=== PATIENT | male | born 1945 | race Caucasian/White ===

== ENCOUNTER 2018-02-02 00:38 | Inpatient (IN) | payer MEDICARE, MEDICAID, SELFPAY ==
[2018-02-02] VITALS (20 sets, daily range): BP systolic 95–136; BP diastolic 50–66; PULSE 91–116; RESP 18–32; TEMP 37.6–41.1; O2SAT 93–98; BMI 31.6
--- NOTE | 2018-02-02 00:52 | RAD_ITS ---
STUDY: X-RAY CHEST REASON FOR EXAM: Male, 72 years old. FEVER ALT MENTAL STATUS PRIOR BRAIN INJURY PATIENT UNABLE/WOULDN'T FOLLOW INSTRUCTIONS BEST IMAGES POSSIBLE TECHNIQUE: Single AP portable view of the chest. COMPARISON: None. 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 Subsegmental atelectases are noted in the right and left lung bases. There is no demonstrated pleural abnormality. Normal size heart. Normal mediastinum and huber. Normal visualized pulmonary arteries. There is atherosclerotic calcification of the aortic arch with tortuosity. Normal visualized thoracic spine. There is degenerative osteoarthritis of the bilateral shoulders. There is no demonstrated abnormality of the visualized soft tissue structures of the upper abdomen. RAD/Chest 1 View (Portable) IMPRESSION: Degenerative changes, as described above. No demonstrated acute cardiopulmonary process. Electronically Signed: Jose Eduardo Grullon MD at 2:40 EDT Tel , Service support ,
--- NOTE | 2018-02-02 00:52 | EKG12_ITS ---
Test Reason : Blood Pressure : / mmHG Vent. Rate : 114 BPM Atrial Rate : 114 BPM P-R Int : 158 ms QRS Dur : 098 ms QT Int : 298 ms P-R-T Axes : 030 030 057 degrees QTc Int : 410 ms Sinus tachycardia Nonspecific T wave abnormality Abnormal ECG Confirmed by ANGELITO ELKINS, LALO ([id number]), editor magazine POONAM SHEPHERD ([id number]) on 02/05/2018 2:20:43 PM Referred By: JANICE Confirmed By:LALO EATON MD
--- NOTE | 2018-02-02 00:54 | CT_ITS ---
STUDY: CT BRAIN WITHOUT CONTRAST REASON FOR EXAM: Male, 72 years old. ALTERED MENTAL STATUS,FEVER,HYPOTENSION HX:EPILEPSY,SCRAP METAL BURNER SHUNT,DEPRESSION,FX SKULL A CHILD RADIATION DOSAGE (If Supplied By Facility): CTDIvol = ( 44.99 ) mGy, DLP = ( 863.60 ) mGycm TECHNIQUE: Transaxial CT imaging of the brain was performed without administration of intravenous contrast material. Individualized dose optimization techniques were used for this CT. COMPARISON: None. FINDINGS: Normal soft tissue structures. Normal calvarium. A right ventricular shunt is seen in good position. There is disproportionate enlargement of the lateral and third ventricles, as compared to the extra-axial spaces. The findings suggest normal pressure hydrocephalus (NPH). There are areas of decreased attenuation within the white matter tracts of the supratentorial brain, consistent with microvascular disease changes. Normal basal ganglia and thalami. Normal brainstem. Normal cerebellum. There is no intracranial hemorrhage. There are no findings of an acute ischemic infarction. Normal visualized paranasal sinuses. CT/Brain/Head without Contrast IMPRESSION: Chronic involutional changes of the brain. There is disproportionate enlargement of the lateral and third ventricles, as compared to the extra-axial spaces. The findings suggest normal pressure hydrocephalus (NPH). Electronically Signed: Jose Eduardo Grullon MD at 2:45 EDT Tel , Service support ,
[2018-02-02 00:55] LABS: Bedside Glucose 122 mg/dL (70-110)
--- NOTE | 2018-02-02 00:59 | ED.RN ---
[facility] called patient last seen normal yesturday morning patient angry today per nurse when she gave his night time medications he was acting normal but slow to respond pills at 1999. patient has no right sided facial droop per nurse.
[2018-02-02 01:06] LABS: Absolute Lymphocyte Count 0.54 X10^3/ul (0.83-4.51); Absolute Neutrophil Count 7.9 X10^3/uL (2.0-7.7); Hematocrit 42.6 % (40-54); Hemoglobin 14.7 g/dl (13.0-16.5); Lymphocyte # 0.54 X10^3/ul (4.0); Lymphocyte % 5.5 % (19-41); Mean Corp Hgb Conc 34.5 g/gl (32-36); Mean Corpuscular Hgb 32.5 pg (27.0-32.0); Mean Platelet Vol. 9.7 fl (6.2-12.0); Monocyte# 1.46 X10^3/uL; Monocyte% 14.8 % (0-10); Neutrophil # 7.87 X10^3/uL (2.7-7.7); Neutrophil % 79.5 % (47-70); Platelet Count 162 K/mm3 (150-450); RBC Distribution Width CV 14.2 % (11.6-14.6); RBC Distribution Width SD 48.4 fl (35.1-43.9); Red Blood Count 4.53 M/mm3 (4.6-6.2); White Blood Count 9.9 K/mm3 (4.4-11.0)
[2018-02-02 01:07] LABS: Differential Indicated SCAN CRITERIA MET; POSITIVE COUNT NO; POSITIVE DIFFERENTIAL YES; POSITIVE MORPHOLOGY NO
[2018-02-02] MEDS: Acetaminophen 650 MG Suppository RECTAL ×3 (01:10→16:58)
[2018-02-02] MEDS: 0.9% Normal Saline 1,000 ML 150 ML IV ×2 (01:10→05:20)
[2018-02-02 01:15] LABS: International Normalized Ratio 1.1; Partial Thromboplast Time 36.5 Seconds (24.1-36.2); Prothrombin Time (Protime)PT. 14.1 SECONDS (11.7-14.9)
[2018-02-02 01:17] LABS: ALB/GLOB Ratio 0.8 RATIO (0.9-2.4); AST(SGOT) 35 U/L (15-37); Alanine Aminotransfer ALT/SGPT 25 U/L (16-61); Albumin, Serum 3.2 g/dL (3.2-5.0); Alkaline Phosphatase 82 U/L (45-117); Anion Gap 6 (5-15); BUN 13 mg/dL (7-18); BUN/Creat Ratio 10.2 RATIO (10-20); Calcium,Total 8.3 mg/dL (8.5-10.1); Chloride 104 mmol/L (98-107); Creatinine, Serum 1.28 mg/dL (0.70-1.30); EST Glomerular Filtration Rate 59 mL/min (>60); Est Glom Filt Rate - Afr Amer 71 mL/min (>60); Estimated Creatinine Clearance 55.45 ml/min; Globulin 4.1 g/dL (2.2-4.2); Glucose 112 mg/dL (74-106); Potassium 3.6 mmol/L (3.5-5.1); Protein, Total 7.3 g/dL (6.4-8.2); Sodium Level 137 mmol/L (136-145)
[2018-02-02 01:18] LABS: Phenytoin (Dilantin) Level 7.8 mL (10.0-20.0)
[2018-02-02 01:19] LABS: Lactic Acid 1.9 mmol/L (0.4-2.0)
[2018-02-02 01:30] LABS: Color, Urine Yellow (Yellow); Glucose, Dipstick Normal (Normal); Ketone-Dipstick 5 mg/dl (Negative); Leukocyte Esterase-Dipstick 500 /ul (Negative); Mucous, Urine 0 SEEN /hpf (<or=2+); Nitrite-Dipstick Positive (Negative); Occult Blood-Urine 150 /ul (Negative); Protein-Dipstick 100 mg/dl (Negative); Red Blood Cells-Urine 0 SEEN /hpf (0-5); Urine Clarity Cloudy (Clear); Urine Urobilinogen 4 mg/dl (Normal)
[2018-02-02 01:35] LABS: Urine Bilirubin Dipstick 1 mg/dL (Negative)
[2018-02-02 01:39] LABS: Bacteria 2+ /hpf (None Seen); Squamous Epithelial Cells - UA 0-5 SEEN /hpf (0-5); White Blood Cells 50-100 SEEN /hpf (0-5)
[2018-02-02] MEDS: 0.9% Normal Saline 1,000 ML 1000 ML IV (03:17)
--- NOTE | 2018-02-02 03:18 | ED.VISSUMM ---
- ER Visit Summary Date of Service: 02/02/18 Chief Complaint: [Mental status change and fever] History of Present Illness: The patient is a 72 M [presents to the emergency department with a mental status change today. Per fdc staff patient started acting somewhat confused and agitated yesterday morning. Patient tonight found relatively unresponsive and apparently normally he is alert and oriented ?3. Patient sent to the ER for further workup and evaluation. Patient unable to give any history.] Physical Examination: Vital signs-blood pressure 97/57, temperature 102, heart rate 116, respirations 24, pulse ox 95% on room air [HEENT-PERRLA, EOMI. Cranial nerves II through XII grossly intact. TMs clear. Mucous membranes moist. No adenopathy. Cardiovascular-tachycardic without murmurs Lungs-clear to auscultation, chest wall stable without crepitus or subcu emphysema Abdomen-normoactive bowel sounds, soft, nontender, no rebound or rigidity, no peritoneal signs. Neuro exam-patient has eye opening to voice and painful stimulus. Patient does not answer any questions. Patient does withdraw all extremities to painful stimulus. Babinski is downgoing bilaterally. Patient had a subtle left-sided facial droop. Extremities-intact ?4, normal range of motion, normal pulses, atraumatic] Test Results: [EKG obtained showed a sinus rhythm with a ventricular rate of 114 bpm with some nonspecific ST changes. When compared with prior EKG from August 2017 no new changes noted. CBC with differential showed a white count of 9.9, hemoglobin 14.7, hematocrit 43, platelets 162. Chemistry is unremarkable. INR was 1.1. Lactate was 1.9. Dilantin level was 7.8. Urinalysis showed 500 leukocyte esterase positive nitrites, 50-100 WBCs, and +2 bacteria. Chest x-ray showed nothing acute. CT scan of the brain without contrast showed changes consistent with normal pressure hydrocephalus.] Emergency Department Course and Treatment: [Blood cultures as well as urine cultures ordered and pending. Patient was started on meropenem 500 mill grams IV. Case was discussed with hospitalist will evaluate patient for admission. Patient received a liter normal same fluid bolus.] Treatment Plan: [Admit] Disposition: [Admit] Impression: [Sepsis Cystitis] This note was generated with [employer] software. It may contain incorrect words, spelling, and punctuation that were not noted in review of the chart prior to signing ED Disposition - Plan for ED Patient: Chief Complaint: Alt LOC Referrals: Glenn Ramos MD [Primary Care Provider] -
--- NOTE | 2018-02-02 03:22 | ED.DCSUM_ITS ---
- ER Visit Summary Date of Service: 02/02/18 Chief Complaint: [Mental status change and fever] History of Present Illness: The patient is a 72 M [presents to the emergency department with a mental status change today. Per detention staff patient started acting somewhat confused and agitated yesterday morning. Patient tonight found relatively unresponsive and apparently normally he is alert and oriented ?3. Patient sent to the ER for further workup and evaluation. Patient unable to give any history.] Physical Examination: Vital signs-blood pressure 97/57, temperature 102, heart rate 116, respirations 24, pulse ox 95% on room air [HEENT-PERRLA, EOMI. Cranial nerves II through XII grossly intact. TMs clear. Mucous membranes moist. No adenopathy. Cardiovascular-tachycardic without murmurs Lungs-clear to auscultation, chest wall stable without crepitus or subcu emphysema Abdomen-normoactive bowel sounds, soft, nontender, no rebound or rigidity, no peritoneal signs. Neuro exam-patient has eye opening to voice and painful stimulus. Patient does not answer any questions. Patient does withdraw all extremities to painful stimulus. Babinski is downgoing bilaterally. Patient had a subtle left-sided facial droop. Extremities-intact ?4, normal range of motion, normal pulses, atraumatic] Test Results: [EKG obtained showed a sinus rhythm with a ventricular rate of 114 bpm with some nonspecific ST changes. When compared with prior EKG from August 2017 no new changes noted. CBC with differential showed a white count of 9.9, hemoglobin 14.7, hematocrit 43, platelets 162. Chemistry is unremarkable. INR was 1.1. Lactate was 1.9. Dilantin level was 7.8. Urinalysis showed 500 leukocyte esterase positive nitrites, 50-100 WBCs, and +2 bacteria. Chest x-ray showed nothing acute. CT scan of the brain without contrast showed changes consistent with normal pressure hydrocephalus.] Emergency Department Course and Treatment: [Blood cultures as well as urine cultures ordered and pending. Patient was started on meropenem 500 mill grams IV. Case was discussed with hospitalist will evaluate patient for admission. Patient received a liter normal same fluid bolus.] Treatment Plan: [Admit] Disposition: [Admit] Impression: [Sepsis Cystitis] This note was generated with [employer] software. It may contain incorrect words, spelling, and punctuation that were not noted in review of the chart prior to signing ED Disposition - Plan for ED Patient: Chief Complaint: Alt LOC Referrals: Glenn Ramos MD [Primary Care Provider] -
--- NOTE | 2018-02-02 04:25 | PCM.HP.STD ---
Problem List (1) Lethargy Status: Acute History of Present Illness Date of Admission: 02/02/18 Chief Complaint: Lethargy The patient is a 72 year old M was seen in the emergency room at [facility] after being sent in from a local extended care facility at which she chronically resides due to increased lethargy today. Patient has multiple medical problems including MRDD, seizure disorder, and BPH with a chronic indwelling suprapubic catheter. Review of systems was unobtainable from the patient due to encephalopathy and MRDD. Evaluation in the emergency room included labs which showed normal white blood cell count, UA was positive for 50-100 WBCs and +2 bacteria, Dilantin level was 7.8. Patient's temperature was 102, he had an increased heart rate and respiratory rate. Chest x-ray was performed and showed no acute infiltrates. Patient will be admitted for acute sepsis secondary to acute cystitis and acute metabolic encephalopathy. Past Medical History Past Medical History (Chronic Problems): Chronic Problems Epilepsy (Chronic) Chronic indwelling Champagne catheter (Chronic) Mental retardation (Chronic) Peripheral vascular disease (Chronic) Major depression (Chronic) Convulsion (Chronic) Allergies No Known Allergies Allergy (Verified 03/17/17 17:06) Home Medications: Ambulatory Orders Medication Instructions Recorded Aspirin [Aspirin, Baby] 81 mg PO DAILY@0800 03/17/17 Carbamazepine 400 mg PO QHS 03/17/17 Multivitamin [Daily Multiple 1 each PO DAILY 03/17/17 Vitamin] Sennosides/Docusate Sodium [Senna 1 each PO QHS 03/17/17 Plus Tablet] Sertraline HCl [Zoloft] 50 mg PO DAILY 03/17/17 Tamsulosin HCl [Flomax] 0.4 mg PO DAILY@1730 capsule 03/22/17 Polyethylene Glycol 3350 [Miralax] 17 gm PO DAILY 04/09/17 Phenytoin Na [Dilantin] 300 mg PO QHS #90 cap 04/11/17 Surgical History: noncontributory Psychiatric History: Depression Lives: Senior [facility] Smoking Status: Unknown if ever smoked Tobacco Use: Non-smoker Alcohol: None Drugs: None - *Family History Maternal History Items: No pertinent history, - - Unable to obtain because of patient's mental status Paternal History Items: No pertinent history Review of Systems Comment: Review of systems unobtainable due to mental status of the patient including MRDD and acute encephalopathy VTE Information - Inpt Only VTE Present on Admission: No VTE Mechan Device Prophylaxis: None VTE Pharm Prophylaxis ordered?: Yes Patient Problems: Active and Suspected Problems Lethargy (Acute) - Physical Exam General: No apparent distress, Well developed, Lethargic, - - Patient is nonverbal but responds to pain HEENT: Atraumatic, PERRLA, EOMI Oral: Moist Mucosa Neck: Supple, No JVD, Negative Carotid Bruits, No Nuchal Rigidity, Trachea Midline, Thyroid Normal Size and Texture Lungs: Clear to auscultation, Normal air movement, No rhonchi, No wheeze, No rales Cardiovascular: Regular rate, Regular Rhythm, Normal S1, Normal S2, No murmurs, No Ectopic Activity, PMI Normal, No rub noted, No Gallop Abdomen: Bowel Sounds Present, Soft, Non Tender, Non-Distended, No Hepato-splenomegaly, No hernias noted, - - Suprapubic catheter in place Extremities: No clubbing, No cyanosis, No edema, Capillary Refill Less than 3 Seconds Skin: No rashes, No breakdown Neurological: Cranial nerves II-XII grossly intact, Neuro grossly intact, Sensory exam intact to light touch and pain Psych/Mental Status: Flat Affect, - - Patient is alert, he responds to painful stimuli and responds by looking when spoken to, he is nonverbal Vital Signs Temp Pulse Resp BP Pulse Ox 99.7 F H 91 18 115/52 L 98 02/02/18 04:14 02/02/18 04:14 02/02/18 04:14 02/02/18 04:14 02/02/18 04:14 Oxygen Delivery Method Room Air Weight: 99.9 kg Body Mass Index (BMI) 31.6 Assessment/Plan Active and Suspected Problems Lethargy (Acute) #1 acute sepsis secondary to acute cystitis-patient will be admitted to [facility] 2, IV meropenem was administered and he will get IV vancomycin-this is based on previous urine and blood cultures showing gram-negative bacteria, enterococcus, and MRSA. It is difficult to ascertain whether the patient indeed has a urinary tract infection due to his chronic indwelling Champagne, however, patient is running a temperature and I believe he does have an acute cystitis. #2 acute cystitis-probably secondary to multiple organisms, patient will be treated with meropenem and vancomycin, antibiotic coverage may be narrowed once blood and urine culture results are revealed #3 acute metabolic encephalopathy secondary to acute sepsis #4 chronic seizure disorder #5 MRDD #6 BPH with chronic suprapubic catheter Code Visit Inpatient E&M: 01041 Init Hosp L3
[2018-02-02] MEDS: Phenytoin Na 100 MG/2 ML Vial IV ×3 (05:08→22:40)
[2018-02-02] MEDS: Heparin Injection (Vial) 5,000 UNIT/ML VIAL 5000 UNIT SC ×3 (05:08→22:40)
--- NOTE | 2018-02-02 05:16 | PCM.RX.CS ---
Consult Pharmacy has been consulted to manage selected antiobiotic: Vancomycin Type of Consult: New start Suspected Infection: Sepsis Prior Doses of Antibiotics Received/Current Regimen: Medications Vancomycin HCl (Vancomycin) 1,000 mg in 200 mls @ 200 mls/hr IV Q12H SHERWIN Previous medications Vancomycin HCl 2,000 mg/ (Sodium Chloride) 540 mls @ 260 mls/hr IV X1 ONE Stop: 02/02/18 07:04 Last Admin: 02/02/18 05:07 Dose: 260 mls/hr Labs: Sodium 137 mmol/L (136-145) 02/02/18 00:45 Potassium 3.6 mmol/L (3.5-5.1) 02/02/18 00:45 Chloride 104 mmol/L (98-107) 02/02/18 00:45 Carbon Dioxide 27.0 mmol/L (21.0-32.0) 02/02/18 00:45 Anion Gap 6 (5-15) 02/02/18 00:45 BUN 13 mg/dL (7-18) 02/02/18 00:45 Creatinine 1.28 mg/dL (0.70-1.30) 02/02/18 00:45 Est GFR (MDRD) Af Amer 71 mL/min (>60) 02/02/18 00:45 Est GFR (MDRD) Non-Af 59 mL/min (>60) L 02/02/18 00:45 BUN/Creatinine Ratio 10.2 RATIO (10-20) 02/02/18 00:45 Glucose 112 mg/dL (74-106) H 02/02/18 00:45 Weight used for dosin.9 kg Estimated Creatinine Clearance: 68 Goal Trough: 15-20 mcg/mL Pharmacy Plan for Drug Dosing: Pharmacy Service will continue to monitor and adjust dosing as required. Follow-Up Labs: Trough Vancomycin Labs to be done on [date and time ordered]: 02/03/18 @7611
--- NOTE | 2018-02-02 08:02 | NURSING ---
This nurse is aware that Gaby, [facility] [employer] Seamstress took Vital Signs and temp was 106.0 with the temporal Artery thermometer. This nurse had Gaby take temp via axillary since pt is MRDD and would not keep oral thermometer in his mouth. Temp was 102 axillary. Gaby alongside this nurse gave Tylenol suppository.
[2018-02-02] MEDS: 0.9% Normal Saline 1,000 ML 999 ML IV (08:38)
--- NOTE | 2018-02-02 08:49 | NURSING ---
Addendum entered by Radha William 02/02/18 08:54: Reginaldo Dugan aware of VS and that bolus is going and lactic ordered. Original Note: This nurse applied telemonitor and continous spo2 on pt per sepsis protocol. Reginaldo Del Valle texted to inform him of VS and trigger of sepsis. This nurse going to order lactic acid on pt.
[2018-02-02 09:40] LABS: Lactic Acid 1.3 mmol/L (0.4-2.0)
--- NOTE | 2018-02-02 09:48 | CASEMGMT ---
Addendum entered by Gretel Lara 02/02/18 12:30: Epifanio Jacek called this SW back, confirmed the plan is for pt to return to [facility] when ready. He is pt's step brother in law and POA. He also confirmed his correct number and address, SW updated information in [employer]. Green sheet remains on chart in event pt can return to [facility] on the weekend. COLTON Cano, HYDROLOGIC MODELER Original Note: Addendum entered by Gretel Lara 02/02/18 12:22: JONN called the number listed for Epifanio Read in the information from [facility], message left to call this SW back. The number in the chart seems to be a wrong number, does not go through. COLTON Cano, HYDROLOGIC MODELER Original Note: Addendum entered by Gretel Lara 02/02/18 11:35: SW confirmed with [facility] that pt is from there long term care pharmacist. If pt is here through the weekend they will take pt back skilled. Otherwise, pt can return when ready. Pt's POA and main contact is Epifanio Read, . Physician spoke w/Epifanio, this is pt's brother in law. Green sheet placed on chart in anticipation of weekend discharge back to [facility]. COLTON Cano, HYDROLOGIC MODELER Original Note: SW reviewed chart, pt is from [facility] long term care pharmacist. JONN called Jannette at [facility], message left, initial clinical information faxed. SW will check w/Jannette when she returns call who is the main family contact. COLTON Cano, HYDROLOGIC MODELER
[2018-02-02] MEDS: Acetaminophen 325 MG Tablet 650 MG PO ×2 (11:58→23:00)
--- NOTE | 2018-02-02 14:00 | PCM.PROGNOTE ---
<Reginaldo Dugan - Last Filed: 02/02/18 14:00> Patient Problems: Active and Suspected Problems Lethargy (Acute) Subjective: Pt resting comfortably. He is minimally communicative, mostly mumbling incoherently. He shook his head no when asked if he had pain, and only told me he was thirsty. I called his POA who indicated that despite the DNRCC status he did want him to receive IV fluids and Antibiotics with the intention of clearing the infection in order to get him back to the [facility] facility that he came from. The patient did not show any signs of discomfort with gently palpation of the abdomen around the suprapubic catheter insertion sight. - Physical Exam General: Alert, Cooperative HEENT: Atraumatic, PERRLA, EOMI, Normocephalic Neck: Supple, No JVD, Negative Carotid Bruits Lungs: Clear to auscultation, Normal air movement Cardiovascular: Regular rate, No murmurs Abdomen: Bowel Sounds Present, Soft, Non Tender, - - no irritation around suprapubic sight. Extremities: No edema, Capillary Refill Less than 3 Seconds Skin: No rashes, No breakdown Musculoskeletal: No Tenderness to Palpation of Joints or Extremities Neurological: Cranial nerves II-XII grossly intact Psych/Mental Status: Normal Affect, Appropriate Vital Signs Temp Pulse Resp BP Pulse Ox 102.8 F H 98 20 H 122/66 H 96 02/02/18 11:47 02/02/18 12:19 02/02/18 11:47 02/02/18 11:47 02/02/18 11:47 Oxygen Delivery Method Room Air Weight: 99.9 kg Body Mass Index (BMI) 31.6 Intake and Output for Last 24 Hours 01/31/18 02/01/18 02/02/18 23:59 23:59 23:59 Intake Total 5143 / 5143 Output Total 400 / 400 Balance 4743 / 4743 Laboratory Tests Past 24 Hrs 02/02/18 09:06 Lactic Acid 1.3 Medical Necessity - Tobacco Use Smoking Status: Unknown if ever smoked Tobacco Use: Non-smoker Assessment/Plan Active and Suspected Problems Lethargy (Acute) 1. Acute sepsis 2/2 recurrent suprapubic catheter associated UTI - patient has had multiple infections with staph, proteus, providencia, enterococcus, morganella, aerococcus. Will continue Vanc and Jordin until cultures come back. Tmax 106 down to 102. No leukocytosis. CXR neg. + UA. BP improved with fluid administration. LA negative. Tachycardic and tachypenic - improving. -follow blood and urine cultures. 2. 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 Pt is currently cooperative and comfortable. 3. Seizure disorder - continue home meds - tegretol and phenytoin. 4. BPH with chronic suprapubic catheter - also on flomax. DVT ppx: heparin DC planning: Return to ECF when stable This patient was seen by Reginaldo Dugan PA-C under the supervision of Doctor Segundo. <Mary Grace Raymond E - Last Filed: 02/02/18 14:49> - Physical Exam Vital Signs Temp Pulse Resp BP Pulse Ox 99.9 F H 98 20 H 122/66 H 96 02/02/18 14:35 02/02/18 12:19 02/02/18 11:47 02/02/18 11:47 02/02/18 11:47 Oxygen Delivery Method Room Air Weight: 220 lb 3.869 oz Body Mass Index (BMI) 31.6 Intake and Output for Last 24 Hours 01/31/18 02/01/18 02/02/18 23:59 23:59 23:59 Intake Total 5143 / 5143 Output Total 400 / 400 Balance 4743 / 4743 Laboratory Tests Past 24 Hrs 02/02/18 09:06 Lactic Acid 1.3 Assessment/Plan Hospitalist note: I am seeing this patient in conjunction with Reginaldo Dugan. I independently seen and examined the patient. Progress note above, laboratory data and imaging studies reviewed. Patient seen and examined. Patient has mental retardation and not able to provide consistent history. He is alert and awake. He has been mumbling incoherently, difficult to understand. His been having spikes of fever, borderline tachycardia and blood pressure has been borderline to stable. Pulse ox is maintained on room air. - Physical Exam General: Alert, awake, Cooperative, No apparent distress. HEENT: Atraumatic, PERRLA, EOMI. Neck: Supple, No JVD, Negative Carotid Bruits, Trachea Midline, Thyroid Normal. Lungs: Diminished breath sounds bilateral, otherwise clear, No rhonchi, No wheeze, No rales. Cardiovascular: Regular rate, Regular Rhythm, Normal S1, Normal S2, tachycardic, PMI Normal. Abdomen: Bowel Sounds Present, Soft, Non Tender, Non-Distended, No Hepato-splenomegaly. Extremities: No clubbing, No cyanosis, No edema Skin: No rashes, No breakdown Neurological: Neuro grossly intact Assessment and plan: #1 acute complicated, supra pubic catheter related UTI/sepsis: He is on IV meropenem and vancomycin based on his previous cultures. Back in September,, he had urine culture that was positive for enterococcus, MRSA, Proteus and Morganella. He is still febrile, blood pressure and heart rate are maintained, fairly stable at this point, pulse ox is maintained. Urine and blood cultures are pending. Plan to continue same treatment. #2 bacteremia: 1 bottle of blood culture came back positive for gram-negative rods and gram-positive cocci. Patient is on IV vancomycin and meropenem as above. Plan as above. #3 other chronic medical problems: Continue same medications as above. This note was generated with [employer] software. It may contain incorrect words, spelling, and punctuation that were not noted in checking the note before signing. Code Visit Inpatient E&M: 76218 Subs Hosp L3
--- NOTE | 2018-02-02 14:10 | PN_ITS ---
<Reginaldo Dugan - Last Filed: 02/02/18 14:00> Patient Problems: Active and Suspected Problems Lethargy (Acute) Subjective: Pt resting comfortably. He is minimally communicative, mostly mumbling incoherently. He shook his head no when asked if he had pain, and only told me he was thirsty. I called his POA who indicated that despite the DNRCC status he did want him to receive IV fluids and Antibiotics with the intention of clearing the infection in order to get him back to the [facility] facility that he came from. The patient did not show any signs of discomfort with gently palpation of the abdomen around the suprapubic catheter insertion sight. - Physical Exam General: Alert, Cooperative HEENT: Atraumatic, PERRLA, EOMI, Normocephalic Neck: Supple, No JVD, Negative Carotid Bruits Lungs: Clear to auscultation, Normal air movement Cardiovascular: Regular rate, No murmurs Abdomen: Bowel Sounds Present, Soft, Non Tender, - - no irritation around suprapubic sight. Extremities: No edema, Capillary Refill Less than 3 Seconds Skin: No rashes, No breakdown Musculoskeletal: No Tenderness to Palpation of Joints or Extremities Neurological: Cranial nerves II-XII grossly intact Psych/Mental Status: Normal Affect, Appropriate Vital Signs Temp Pulse Resp BP Pulse Ox 102.8 F H 98 20 H 122/66 H 96 02/02/18 11:47 02/02/18 12:19 02/02/18 11:47 02/02/18 11:47 02/02/18 11:47 Oxygen Delivery Method Room Air Weight: 99.9 kg Body Mass Index (BMI) 31.6 Intake and Output for Last 24 Hours 01/31/18 02/01/18 02/02/18 23:59 23:59 23:59 Intake Total 5143 / 5143 Output Total 400 / 400 Balance 4743 / 4743 Laboratory Tests Past 24 Hrs 02/02/18 09:06 Lactic Acid 1.3 Medical Necessity - Tobacco Use Smoking Status: Unknown if ever smoked Tobacco Use: Non-smoker Assessment/Plan Active and Suspected Problems Lethargy (Acute) 1. Acute sepsis 2/2 recurrent suprapubic catheter associated UTI - patient has had multiple infections with staph, proteus, providencia, enterococcus, morganella, aerococcus. Will continue Vanc and Jordin until cultures come back. Tmax 106 down to 102. No leukocytosis. CXR neg. + UA. BP improved with fluid administration. LA negative. Tachycardic and tachypenic - improving. -follow blood and urine cultures. 2. 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 Pt is currently cooperative and comfortable. 3. Seizure disorder - continue home meds - tegretol and phenytoin. 4. BPH with chronic suprapubic catheter - also on flomax. DVT ppx: heparin DC planning: Return to ECF when stable This patient was seen by Reginaldo Dugan PA-C under the supervision of Doctor Segundo. <Mary Grace Raymond E - Last Filed: 02/02/18 14:49> - Physical Exam Vital Signs Temp Pulse Resp BP Pulse Ox 99.9 F H 98 20 H 122/66 H 96 02/02/18 14:35 02/02/18 12:19 02/02/18 11:47 02/02/18 11:47 02/02/18 11:47 Oxygen Delivery Method Room Air Weight: 220 lb 3.869 oz Body Mass Index (BMI) 31.6 Intake and Output for Last 24 Hours 01/31/18 02/01/18 02/02/18 23:59 23:59 23:59 Intake Total 5143 / 5143 Output Total 400 / 400 Balance 4743 / 4743 Laboratory Tests Past 24 Hrs 02/02/18 09:06 Lactic Acid 1.3 Assessment/Plan Hospitalist note: I am seeing this patient in conjunction with Reginaldo Dugan. I independently seen and examined the patient. Progress note above, laboratory data and imaging studies reviewed. Patient seen and examined. Patient has mental retardation and not able to provide consistent history. He is alert and awake. He has been mumbling incoherently, difficult to understand. His been having spikes of fever, borderline tachycardia and blood pressure has been borderline to stable. Pulse ox is maintained on room air. - Physical Exam General: Alert, awake, Cooperative, No apparent distress. HEENT: Atraumatic, PERRLA, EOMI. Neck: Supple, No JVD, Negative Carotid Bruits, Trachea Midline, Thyroid Normal. Lungs: Diminished breath sounds bilateral, otherwise clear, No rhonchi, No wheeze, No rales. Cardiovascular: Regular rate, Regular Rhythm, Normal S1, Normal S2, tachycardic , PMI Normal. Abdomen: Bowel Sounds Present, Soft, Non Tender, Non-Distended, No Hepato- splenomegaly. Extremities: No clubbing, No cyanosis, No edema Skin: No rashes, No breakdown Neurological: Neuro grossly intact Assessment and plan: #1 acute complicated, supra pubic catheter related UTI/sepsis: He is on IV meropenem and vancomycin based on his previous cultures. Back in September, , he had urine culture that was positive for enterococcus, MRSA, Proteus and Morganella. He is still febrile, blood pressure and heart rate are maintained, fairly stable at this point, pulse ox is maintained. Urine and blood cultures are pending. Plan to continue same treatment. #2 bacteremia: 1 bottle of blood culture came back positive for gram-negative rods and gram-positive cocci. Patient is on IV vancomycin and meropenem as above. Plan as above. #3 other chronic medical problems: Continue same medications as above. This note was generated with [employer] software. It may contain incorrect words, spelling, and punctuation that were not noted in checking the note before signing. Code Visit Inpatient E&M: 99254 Subs Hosp L3
[2018-02-02] MEDS: 0.9% Normal Saline 1,000 ML 100 ML IV (15:41)
[2018-02-02] MEDS: Tamsulosin HCl 0.4 MG Capsule PO (16:51)
[2018-02-02] MEDS: Senna/Docusate Sodium 1 Tablet PO (22:40)
[2018-02-02] MEDS: carBAMazepine 200 MG Tablet 400 MG PO (22:40)
[2018-02-03] VITALS (14 sets, daily range): BP systolic 95–136; BP diastolic 48–74; PULSE 85–103; RESP 18–20; TEMP 37.4–40.1; O2SAT 94–98
[2018-02-03] MEDS: 0.9% NaCl Peripheral Flush Adult/Peds IV (00:16)
[2018-02-03] MEDS: 0.9% Normal Saline 1,000 ML 999 ML IV (00:16)
[2018-02-03] MEDS: 0.9% Normal Saline 1,000 ML 100 ML IV (05:20)
[2018-02-03] MEDS: Heparin Injection (Vial) 5,000 UNIT/ML VIAL 5000 UNIT SC ×3 (05:45→22:05)
[2018-02-03] MEDS: Phenytoin Na 100 MG/2 ML Vial IV ×3 (05:45→22:05)
[2018-02-03] MEDS: Acetaminophen 325 MG Tablet 650 MG PO (05:48)
[2018-02-03 07:12] LABS: Absolute Lymphocyte Count 0.82 X10^3/ul (0.83-4.51); Absolute Neutrophil Count 2.5 X10^3/uL (2.0-7.7); Basophil# 0.01 X10^3/uL; Basophil% 0.3 % (0-1); Hematocrit 35.2 % (40-54); Lymphocyte # 0.82 X10^3/ul (4.0); Lymphocyte % 21.8 % (19-41); Mean Corp Hgb Conc 34.1 g/gl (32-36); Mean Corpuscular Volume 93.9 fL (80-94); Mean Platelet Vol. 10.5 fl (6.2-12.0); Monocyte# 0.45 X10^3/uL; Monocyte% 11.9 % (0-10); Neutrophil # 2.49 X10^3/uL (2.7-7.7); Platelet Count 87 K/mm3 (150-450); RBC Distribution Width CV 14.5 % (11.6-14.6); RBC Distribution Width SD 49.6 fl (35.1-43.9); Red Blood Count 3.75 M/mm3 (4.6-6.2); White Blood Count 3.8 K/mm3 (4.4-11.0)
[2018-02-03 07:13] LABS: POSITIVE COUNT NO; POSITIVE DIFFERENTIAL NO; POSITIVE MORPHOLOGY NO
[2018-02-03 07:27] LABS: Anion Gap 8 (5-15); BUN 10 mg/dL (7-18); BUN/Creat Ratio 11.1 RATIO (10-20); Calcium,Total 7.1 mg/dL (8.5-10.1); Chloride 107 mmol/L (98-107); EST Glomerular Filtration Rate 89 mL/min (>60); Est Glom Filt Rate - Afr Amer 107 mL/min (>60); Estimated Creatinine Clearance 78.86 ml/min; Glucose 114 mg/dL (74-106); Potassium 3.5 mmol/L (3.5-5.1); Sodium Level 139 mmol/L (136-145)
[2018-02-03] MEDS: Sertraline 50 MG Tablet PO (07:47)
[2018-02-03] MEDS: Polyethylene Glycol 3350 17 GM PACKET PO (07:47)
[2018-02-03] MEDS: Aspirin 81 MG TAB.CHEW PO (07:47)
--- NOTE | 2018-02-03 08:32 | RAD_ITS ---
STUDY: X-RAY CHEST REASON FOR EXAM: Male, 72 years old. Dyspnea TECHNIQUE: Single AP portable view of the chest. COMPARISON: None. FINDINGS: ORCHESTRATOR shunt catheter is seen on the right side. Subsegmental atelectases are noted in the right and left lung bases. There is no demonstrated pleural abnormality. Normal size heart. Normal mediastinum and huber. Normal visualized pulmonary arteries. There is atherosclerotic calcification of the aortic arch with tortuosity. Normal visualized thoracic spine. There is degenerative osteoarthritis of the bilateral shoulders. There is no demonstrated abnormality of the visualized soft tissue structures of the upper abdomen. RAD/Chest PA and Lateral IMPRESSION: Degenerative changes, as described above. No demonstrated acute cardiopulmonary process. Electronically Signed: Jose Eduardo Grullon MD at 10:34 EDT Tel , Service support ,
--- NOTE | 2018-02-03 12:42 | PCM.PROGNOTE ---
<Reginaldo Dugan - Last Filed: 02/03/18 12:42> Patient Problems: Active and Suspected Problems Lethargy (Acute) Subjective: Pt is more alert and talkative today. He denies abdominal pain, denies SOB though he does sound more wheezy. He does fee some subjective fevers. He is resting comfortably in bed NAD. - Physical Exam General: Alert, Oriented x3, Cooperative HEENT: Atraumatic, PERRLA, EOMI, Normocephalic Neck: Supple, No JVD, Negative Carotid Bruits Lungs: Clear to auscultation, Normal air movement, Wheezes - loud expiratory wheezes Cardiovascular: Regular rate, No murmurs Abdomen: Bowel Sounds Present, Soft, Non Tender Extremities: No edema, Capillary Refill Less than 3 Seconds, Edema - 1+ pitting edema BLE Skin: No rashes, No breakdown Musculoskeletal: No Tenderness to Palpation of Joints or Extremities Neurological: Cranial nerves II-XII grossly intact Psych/Mental Status: Normal Affect, Appropriate Vital Signs Temp Pulse Resp BP Pulse Ox 99.8 F H 85 20 H 103/49 L 95 02/03/18 07:38 02/03/18 12:10 02/03/18 07:38 02/03/18 07:38 02/03/18 07:38 Oxygen Delivery Method Room Air Weight: 99.9 kg Body Mass Index (BMI) 31.6 Intake and Output for Last 24 Hours 02/01/18 02/02/18 02/03/18 23:59 23:59 23:59 Intake Total 6158 / 6158 2412 / 2412 Output Total 700 / 700 800 / 800 Balance 5458 / 5458 1612 / 1612 Laboratory Tests Past 24 Hrs 02/03/18 02/03/18 06:18 06:18 WBC 3.8 L RBC 3.75 L Hgb 12.0 L Hct 35.2 L MCV 93.9 MCH 32.0 MCHC 34.1 RDW 14.5 RDW Differential 49.6 H Plt Count 87 L MPV 10.5 Immature Gran % (Auto) 0.000 Neut % (Auto) 66.0 Lymph % (Auto) 21.8 [place] % (Auto) 11.9 H Eos % (Auto) 0.0 Baso % (Auto) 0.3 Absolute Neuts (auto) 2.5 Absolute Lymphs (auto) 0.82 L Total Counted Not Reportable Sodium 139 Potassium 3.5 Chloride 107 Carbon Dioxide 24.0 Anion Gap 8 BUN 10 Creatinine 0.90 Estim Creat Clear Calc 78.86 Est GFR (MDRD) Af Amer 107 Est GFR (MDRD) Non-Af 89 BUN/Creatinine Ratio 11.1 Glucose 114 H Calcium 7.1 L Medical Necessity - Tobacco Use Smoking Status: Unknown if ever smoked Tobacco Use: Non-smoker Assessment/Plan Active and Suspected Problems Lethargy (Acute) 1. Acute sepsis with bacteremia 2/2 recurrent suprapubic catheter associated UTI - patient has had multiple infections with staph, proteus, providencia, enterococcus, morganella, aerococcus. Will continue Vanc and Jordin until cultures come back. Still febrile up to 104.2 this morning. No leukocytosis. CXR neg. + UA. BP improved with fluid administration. LA negative. Tachycardic and tachypenic - improving. -Both his blood cultures, and his urine culture are showing GNR and gram positive organisms. Will consult ID and wait for final C/S. -History of positive blood cultures-last time he was discharged on Rocephin and vancomycin IV which were completed in August and September of last year respectively. 2. 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 Mentation is improved today. 3. Seizure disorder - continue home meds - tegretol and phenytoin. 4. BPH with chronic suprapubic catheter - also on flomax. 5. Increased wheezing-repeat chest x-ray today was negative for acute process. Add aerosols today. DVT ppx: heparin DC planning: Return to ECF when stable This patient was seen by Reginaldo Dugan PA-C under the supervision of Doctor Raymond. <Mary Grace Raymond E - Last Filed: 02/03/18 13:52> - Physical Exam Vital Signs Temp Pulse Resp BP Pulse Ox 99.4 F H 91 20 H 110/52 L 98 02/03/18 13:35 02/03/18 13:35 02/03/18 13:35 02/03/18 13:35 02/03/18 13:35 Oxygen Delivery Method Room Air Weight: 220 lb 3.869 oz Body Mass Index (BMI) 31.6 Intake and Output for Last 24 Hours 02/01/18 02/02/18 02/03/18 23:59 23:59 23:59 Intake Total 6158 / 6158 3060 / 3060 Output Total 700 / 700 1100 / 1100 Balance 5458 / 5458 1959 / 1959 Laboratory Tests Past 24 Hrs 02/03/18 02/03/18 06:18 06:18 WBC 3.8 L RBC 3.75 L Hgb 12.0 L Hct 35.2 L MCV 93.9 MCH 32.0 MCHC 34.1 RDW 14.5 RDW Differential 49.6 H Plt Count 87 L MPV 10.5 Immature Gran % (Auto) 0.000 Neut % (Auto) 66.0 Lymph % (Auto) 21.8 [place] % (Auto) 11.9 H Eos % (Auto) 0.0 Baso % (Auto) 0.3 Absolute Neuts (auto) 2.5 Absolute Lymphs (auto) 0.82 L Total Counted Not Reportable Sodium 139 Potassium 3.5 Chloride 107 Carbon Dioxide 24.0 Anion Gap 8 BUN 10 Creatinine 0.90 Estim Creat Clear Calc 78.86 Est GFR (MDRD) Af Amer 107 Est GFR (MDRD) Non-Af 89 BUN/Creatinine Ratio 11.1 Glucose 114 H Calcium 7.1 L Assessment/Plan Hospitalist note: I am seeing this patient in conjunction with Reginaldo Dugan. I independently seen and examined the patient. Progress note above and laboratory data and I agree with the above treatment plan. Patient seen and examined today. This morning, he complained of headache. No other complaints. He has been mumbling incoherently. He is still having spikes of fever, blood pressure and heart rate are stable and maintain pulse ox on room air. - Physical Exam General: Alert, awake, Cooperative, No apparent distress. HEENT: Atraumatic, PERRLA, EOMI. Neck: Supple, No JVD, Negative Carotid Bruits, Trachea Midline, Thyroid Normal. Lungs: Diminished breath sounds bilateral, otherwise clear, No rhonchi, No wheeze, No rales. Cardiovascular: Regular rate, Regular Rhythm, Normal S1, Normal S2, tachycardic, PMI Normal. Abdomen: Bowel Sounds Present, Soft, Non Tender, Non-Distended, No Hepato-splenomegaly. Extremities: No clubbing, No cyanosis, No edema Skin: No rashes, No breakdown Neurological: Neuro grossly intact Assessment and plan: #1 acute complicated, supra pubic catheter related UTI/sepsis: Remains on IV meropenem and vancomycin based on his previous cultures. Back in September,, he had urine culture that was positive for enterococcus, MRSA, Proteus and Morganella. He is still febrile, other vital signs are stable. Urine culture revealed gram-negative rods and gram-positive organism. Awaiting the final culture results. #2 bacteremia: Blood culture revealed gram-negative rods and gram-positive cocci. Patient is on IV vancomycin and meropenem as above. Plan: Consult infectious disease. #3 other chronic medical problems: Continue same medications as above. This note was generated with [employer] software. It may contain incorrect words, spelling, and punctuation that were not noted in checking the note before signing. Code Visit Inpatient E&M: 86707 Subs Hosp L2
[2018-02-03] MEDS: Albuterol 2.5 MG/3 ML VIAL.NEB. INHALATION (17:04)
[2018-02-03] MEDS: Tamsulosin HCl 0.4 MG Capsule PO (18:05)
[2018-02-03 18:52] LABS: Vancomycin, Trough Level 8.4 ug/mL (5.0-15.0)
--- NOTE | 2018-02-03 20:05 | PCM.RX.CS ---
Consult Pharmacy has been consulted to manage selected antiobiotic: Vancomycin Type of Consult: Follow-up Suspected Infection: Sepsis Prior Doses of Antibiotics Received/Current Regimen: Medications Vancomycin HCl (Vancomycin) 1,000 mg in 200 mls @ 200 mls/hr IV Q8H SHERWIN Discontinued Medications Vancomycin HCl (Vancomycin) 1,000 mg in 200 mls @ 200 mls/hr IV Q12H SHERWIN Last Admin: 02/03/18 18:03 Dose: 200 mls/hr Labs: Sodium 139 mmol/L (136-145) 02/03/18 06:18 Potassium 3.5 mmol/L (3.5-5.1) 02/03/18 06:18 Chloride 107 mmol/L (98-107) 02/03/18 06:18 Carbon Dioxide 24.0 mmol/L (21.0-32.0) 02/03/18 06:18 Anion Gap 8 (5-15) 02/03/18 06:18 BUN 10 mg/dL (7-18) 02/03/18 06:18 Creatinine 0.90 mg/dL (0.70-1.30) 02/03/18 06:18 Est GFR (MDRD) Af Amer 107 mL/min (>60) 02/03/18 06:18 Est GFR (MDRD) Non-Af 89 mL/min (>60) 02/03/18 06:18 BUN/Creatinine Ratio 11.1 RATIO (10-20) 02/03/18 06:18 Glucose 114 mg/dL (74-106) H 02/03/18 06:18 Vancomycin Trough 8.4 ug/mL (5.0-15.0) 02/03/18 17:40 Weight used for dosin.9 kg Estimated Creatinine Clearance: 97 Goal Trough: 15-20 mcg/mL Pharmacy Plan for Drug Dosing: Pharmacy Service will continue to monitor and adjust dosing as required. Follow-Up Labs: Trough Vancomycin Labs to be done on [date and time ordered]: 02/04/2018 @1859
[2018-02-03] MEDS: Senna/Docusate Sodium 1 Tablet PO (22:06)
[2018-02-03] MEDS: carBAMazepine 200 MG Tablet 400 MG PO (22:06)
[2018-02-04] VITALS (9 sets, daily range): BP systolic 114–120; BP diastolic 60–73; PULSE 61–87; RESP 18; TEMP 36.8–37.1; O2SAT 93–98
[2018-02-04] MEDS: 0.9% Normal Saline 1,000 ML 60 ML IV ×2 (02:25→23:40)
[2018-02-04] MEDS: Heparin Injection (Vial) 5,000 UNIT/ML VIAL 5000 UNIT SC ×3 (05:43→21:48)
[2018-02-04] MEDS: Phenytoin Na 100 MG/2 ML Vial IV ×3 (05:43→21:48)
[2018-02-04] MEDS: Polyethylene Glycol 3350 17 GM PACKET PO (10:46)
[2018-02-04] MEDS: Aspirin 81 MG TAB.CHEW PO (10:46)
[2018-02-04] MEDS: Sertraline 50 MG Tablet PO (10:46)
--- NOTE | 2018-02-04 13:27 | PN_ITS ---
<Reginaldo Dugan - Last Filed: 02/04/18 13:24> Patient Problems: Active and Suspected Problems Lethargy (Acute) Subjective: Pts mentation seems stable today. He has some generlalized all over achiness but does not voice any specific complaints and states the he just feels sick. - Physical Exam General: Alert, Oriented x3, Cooperative HEENT: Atraumatic, PERRLA, EOMI, Normocephalic Neck: Supple, No JVD, Negative Carotid Bruits Lungs: Clear to auscultation, Normal air movement Cardiovascular: Regular rate, No murmurs Abdomen: Bowel Sounds Present, Soft, Non Tender Extremities: No edema, Capillary Refill Less than 3 Seconds Skin: No rashes, No breakdown Musculoskeletal: No Tenderness to Palpation of Joints or Extremities Neurological: Cranial nerves II-XII grossly intact Psych/Mental Status: Normal Affect, Appropriate, Alert and oriented to time, place, person, mood and affect Vital Signs Temp Pulse Resp BP Pulse Ox 98.8 F 61 18 114/60 93 02/04/18 08:30 02/04/18 11:00 02/04/18 08:30 02/04/18 08:30 02/04/18 08:30 Oxygen Delivery Method Room Air Weight: 99.9 kg Body Mass Index (BMI) 31.6 Intake and Output for Last 24 Hours 02/02/18 02/03/18 02/04/18 23:59 23:59 23:59 Intake Total 6158 / 6158 4044 / 4044 1279 / 1279 Output Total 700 / 700 1450 / 1450 675 / 675 Balance 5458 / 5458 2594 / 2594 604 / 604 Laboratory Tests Past 24 Hrs 02/03/18 17:40 Vancomycin Trough 8.4 Medical Necessity - Tobacco Use Smoking Status: Unknown if ever smoked Tobacco Use: Non-smoker Assessment/Plan Active and Suspected Problems Lethargy (Acute) 1. Acute sepsis with bacteremia 2/2 recurrent suprapubic catheter associated UTI - patient has had multiple infections with staph, proteus, providencia, enterococcus, morganella, aerococcus. Will continue Vanc and Jordin until cultures come back. No leukocytosis. CXR neg. + UA. BP improved with fluid administration. LA negative. Tachycardic and tachypenic - improving. -Last recorded fever at 2044, 100.5?. So far today no fevers. -Both his blood cultures, and his urine culture are showing E coli resistant to quinolones and staph - need final c/s. Will consult ID and final c/s. -History of positive blood cultures-last time he was discharged on Rocephin and vancomycin IV which were completed in August and September of last year respectively. 2. 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 Mentation is improved today. 3. Seizure disorder - continue home meds - tegretol and phenytoin. 4. BPH with chronic suprapubic catheter - also on flomax. 5. Increased wheezing- improved. DVT ppx: heparin DC planning: Return to ECF when stable This patient was seen by Reginaldo Dugan PA-C under the supervision of Doctor Segundo. <Mary Grace Raymond E - Last Filed: 02/04/18 14:14> - Physical Exam Vital Signs Temp Pulse Resp BP Pulse Ox 98.8 F 61 18 114/60 93 02/04/18 08:30 02/04/18 11:00 02/04/18 08:30 02/04/18 08:30 02/04/18 08:30 Oxygen Delivery Method Room Air Weight: 220 lb 3.869 oz Body Mass Index (BMI) 31.6 Intake and Output for Last 24 Hours 02/02/18 02/03/18 02/04/18 23:59 23:59 23:59 Intake Total 6158 / 6158 4044 / 4044 1279 / 1279 Output Total 700 / 700 1450 / 1450 675 / 675 Balance 5458 / 5458 2594 / 2594 604 / 604 Laboratory Tests Past 24 Hrs 02/03/18 17:40 Vancomycin Trough 8.4 Assessment/Plan Hospitalist note: I am seeing this patient in conjunction with Reginaldo Dugan. I independently seen and examined the patient. Progress note above and I agree with the above treatment plan. Patient seen and examined today. When I examined the patient, he denied any significant complaints. He has been mumbling incoherently. Last low-grade fever was at around 9 PM last night and it was 100.5 Fahrenheit. Other vital signs are stable. - Physical Exam General: Alert, awake, Cooperative, No apparent distress. HEENT: Atraumatic, PERRLA, EOMI. Neck: Supple, No JVD, Negative Carotid Bruits, Trachea Midline, Thyroid Normal. Lungs: Diminished breath sounds bilateral, otherwise clear, No rhonchi, No wheeze, No rales. Cardiovascular: Regular rate, Regular Rhythm, Normal S1, Normal S2, tachycardic , PMI Normal. Abdomen: Bowel Sounds Present, Soft, Non Tender, Non-Distended, No Hepato- splenomegaly. Extremities: No clubbing, No cyanosis, No edema Skin: No rashes, No breakdown Neurological: Neuro grossly intact Assessment and plan: #1 acute complicated, supra pubic catheter related UTI/sepsis: Remains on IV meropenem and vancomycin based on his previous cultures. His vital signs stabilized, afebrile this morning. Back in September,, he had urine culture that was positive for enterococcus, MRSA, Proteus and Morganella. Urine culture revealed gram-negative rods and gram-positive organism. Awaiting the final culture results. #2 bacteremia: Blood culture revealed Proteus mirabilis and staph aureus, final is pending. Patient is on IV vancomycin and meropenem as above. Infectious disease consulted, awaiting their recommendation. #3 other chronic medical problems: Continue same medications as above. This note was generated with [employer] dictation software. It may contain incorrect words, spelling, and punctuation that were not noted in checking the note before signing. Code Visit Inpatient E&M: 82808 Subs Hosp L2
[2018-02-04] MEDS: Tamsulosin HCl 0.4 MG Capsule PO (17:49)
[2018-02-04 18:10] LABS: Vancomycin, Trough Level 15.5 ug/mL (5.0-15.0)
[2018-02-04] MEDS: carBAMazepine 200 MG Tablet 400 MG PO (21:48)
[2018-02-04] MEDS: Senna/Docusate Sodium 1 Tablet PO (21:48)
[2018-02-05] VITALS: PULSE 79
[2018-02-05 02:30] VITALS: BP 107/63; PULSE 77; RESP 18; TEMP 36.7; O2SAT 94
[2018-02-05 04:00] VITALS: PULSE 73
[2018-02-05] MEDS: Phenytoin Na 100 MG/2 ML Vial IV ×2 (05:29→14:24)
[2018-02-05] MEDS: Heparin Injection (Vial) 5,000 UNIT/ML VIAL 5000 UNIT SC (05:29)
[2018-02-05 06:04] LABS: Absolute Lymphocyte Count 1.02 X10^3/ul (0.83-4.51); Absolute Neutrophil Count 1.4 X10^3/uL (2.0-7.7); Basophil# 0.01 X10^3/uL; Basophil% 0.3 % (0-1); Eosinophil# 0.04 X10^3/uL; Eosinophils% 1.3 % (0-5); Hemoglobin 12.5 g/dl (13.0-16.5); Lymphocyte # 1.02 X10^3/ul (4.0); Lymphocyte % 33.1 % (19-41); Mean Corp Hgb Conc 34.7 g/gl (32-36); Mean Corpuscular Hgb 32.2 pg (27.0-32.0); Mean Corpuscular Volume 92.8 fL (80-94); Mean Platelet Vol. 11.8 fl (6.2-12.0); Monocyte# 0.65 X10^3/uL; Monocyte% 21.1 % (0-10); Neutrophil # 1.35 X10^3/uL (2.7-7.7); Neutrophil % 43.9 % (47-70); Platelet Count 67 K/mm3 (150-450); RBC Distribution Width CV 13.6 % (11.6-14.6); RBC Distribution Width SD 45.3 fl (35.1-43.9); Red Blood Count 3.88 M/mm3 (4.6-6.2); White Blood Count 3.1 K/mm3 (4.4-11.0)
[2018-02-05 06:09] LABS: Anion Gap 7 (5-15); BUN 6 mg/dL (7-18); Calcium,Total 7.8 mg/dL (8.5-10.1); Chloride 107 mmol/L (98-107); Creatinine, Serum 0.75 mg/dL (0.70-1.30); EST Glomerular Filtration Rate 110 mL/min (>60); Est Glom Filt Rate - Afr Amer 133 mL/min (>60); Estimated Creatinine Clearance 70.97 ml/min; Glucose 104 mg/dL (74-106); Potassium 3.8 mmol/L (3.5-5.1); Sodium Level 142 mmol/L (136-145)
[2018-02-05 06:21] LABS: POSITIVE COUNT NO; POSITIVE DIFFERENTIAL NO; POSITIVE MORPHOLOGY NO
[2018-02-05 08:30] VITALS: BP 115/65; PULSE 78; RESP 18; TEMP 37.1; O2SAT 94
--- NOTE | 2018-02-05 09:13 | ECHOCS_ITS ---
Reason For Study: ARRYTHMIA Procedure This was a 2D Doppler, Color Flow transthoracic echocardiogram. Exam performed portable in patient room. Left Ventricle Normal LV size. Left ventricular systolic function is normal. The estimated ejection fraction is 60 %. No evidence for diastolic dysfunction. No regional wall motion abnormalities noted. Right Ventricle Normal RV size. Normal systolic function. Mitral Valve Normal mitral valve. Tricuspid Valve Normal tricuspid valve. Mild (1+) tricuspid valve insufficiency. Mild pulmonary hypertension. Aortic Valve Normal aortic valve. Pulmonic Valve The pulmonic valve is not well visualized. Great Vessels Normal aortic root. The pulmonary artery is normal size. Normal inferior vena cava. Pericardium/Pleural No pericardial effusion. Medication Diluted definity 3ml given slow IV push to enhance endocardial definition. MMode/2D Measurements & Calculations LVIDd: 4.5 cm IVSd: 0.89 cm Ao root diam: 3.3 cm LVIDs: 3.2 cm LVPWd: 0.92 cm FS: 30.5 % LAV(MOD-bp): 28.2 ml LA A4 area: 10.9 cm2 RA A4 area: 13.4 cm2 LAV(MOD-bp) Indexed: 13.0 ml/m2 LAV(MOD-sp2): 36.8 ml LAV(MOD-sp4): 20.4 ml Time Measurements MV dec time: 0.21 sec Doppler Measurements & Calculations MV E max tao: 94.9 cm/sec Lat Peak E' Tao: 11.1 cm/sec Med Peak E' Tao: 9.9 cm/sec MV A max tao: 84.8 cm/sec E/E' lat: 8.6 E/E' med: 9.6 MV E/A: 1.1 Ao V2 max: 123.8 cm/sec LV V1 max: 99.4 cm/sec PA V2 max: 90.9 cm/sec Ao max P.1 mmHg LV V1 max P.0 mmHg TR max tao: 249.5 cm/sec TR max P.9 mmHg Interpretation Summary Normal LV size. Left ventricular systolic function is normal. The estimated ejection fraction is 60 %. No evidence for diastolic dysfunction. Contrast injection was performed. Ordering Physician: Eden Moore Referring Physician: AMAYA SHEPHERD Performed By: Kely Mccormick RDCS
[2018-02-05] MEDS: Polyethylene Glycol 3350 17 GM PACKET PO (09:57)
[2018-02-05] MEDS: Aspirin 81 MG TAB.CHEW PO (09:57)
[2018-02-05] MEDS: Sertraline 50 MG Tablet PO (09:57)
--- NOTE | 2018-02-05 10:23 | CASEMGMT ---
Addendum entered by Piper Alanis 02/05/18 14:44: JONN placed call to Peggy at [facility] to inform her that pt will most likely not be discharging today. Original Note: Social Work Note SW faxed updated clinicals to Peggy at [facility]. Plan: Discharge to [facility] when medically cleared Piper Alanis [employer], [employer]ISTOR [employer]
--- NOTE | 2018-02-05 12:22 | PCM.PROGNOTE ---
<Reginaldo Dugan - Last Filed: 02/05/18 12:22> Patient Problems: Active and Suspected Problems Lethargy (Acute) Subjective: Patient is without complaints this morning. He has no fevers or chills. He denies pain. He is not SOB. No CP or cough. No pain around his cath site. - Physical Exam General: Alert, Oriented x3, Cooperative HEENT: Atraumatic, PERRLA, EOMI, Normocephalic Neck: Supple, No JVD, Negative Carotid Bruits Lungs: Clear to auscultation, Normal air movement Cardiovascular: Regular rate, No murmurs Abdomen: Bowel Sounds Present, Soft, Non Tender Extremities: No edema, Capillary Refill Less than 3 Seconds Skin: No rashes, No breakdown Musculoskeletal: No Tenderness to Palpation of Joints or Extremities Neurological: Cranial nerves II-XII grossly intact Psych/Mental Status: Normal Affect, Appropriate Vital Signs Temp Pulse Resp BP Pulse Ox 98.8 F 78 18 115/65 94 02/05/18 08:30 02/05/18 08:30 02/05/18 08:30 02/05/18 08:30 02/05/18 08:30 Oxygen Delivery Method Room Air Weight: 99.9 kg Body Mass Index (BMI) 31.6 Intake and Output for Last 24 Hours 02/03/18 02/04/18 02/05/18 23:59 23:59 23:59 Intake Total 4044 / 4044 3484 / 3484 867 / 867 Output Total 1450 / 1450 3625 / 3625 1100 / 1100 Balance 2594 / 2594 -141 / -141 -233 / -233 Laboratory Tests Past 24 Hrs 02/04/18 02/05/18 02/05/18 17:21 05:35 05:35 WBC 3.1 L RBC 3.88 L Hgb 12.5 L Hct 36.0 L MCV 92.8 MCH 32.2 H MCHC 34.7 RDW 13.6 RDW Differential 45.3 H Plt Count 67 L MPV 11.8 Immature Gran % (Auto) 0.300 Neut % (Auto) 43.9 L Lymph % (Auto) 33.1 [place] % (Auto) 21.1 H Eos % (Auto) 1.3 Baso % (Auto) 0.3 Absolute Neuts (auto) 1.4 L Absolute Lymphs (auto) 1.02 Total Counted Not Reportable Sodium 142 Potassium 3.8 Chloride 107 Carbon Dioxide 28.0 Anion Gap 7 BUN 6 L Creatinine 0.75 Estim Creat Clear Calc 70.97 Est GFR (MDRD) Af Amer 133 Est GFR (MDRD) Non-Af 110 BUN/Creatinine Ratio 8.0 L Glucose 104 Calcium 7.8 L Vancomycin Trough 15.5 H Medical Necessity - Tobacco Use Smoking Status: Unknown if ever smoked Tobacco Use: Non-smoker Assessment/Plan Active and Suspected Problems Lethargy (Acute) 1. Acute sepsis with recurrent bacteremia 2/2 recurrent suprapubic catheter associated UTI - patient has had multiple infections with staph, proteus, providencia, enterococcus, morganella, aerococcus. Will continue Vanc and Jordin until cultures come back. No leukocytosis. CXR neg. + UA. BP improved with fluid administration. LA negative. Tachycardic and tachypenic - improving. -Now afebrile. -Both his blood cultures, and his urine culture are showing E coli resistant to quinolones and MRSA - need final c/s. Will consult ID and final c/s. -Yesterday Jordin changed to Rocephin. Continue Vanco. -He may need TTE or BI as this has been recurrent bacteremia. -Follow repeat cultures for clearing. 2. 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 Mentation is improved today. 3. Seizure disorder - continue home meds - tegretol and phenytoin. 4. BPH with chronic suprapubic catheter - also on flomax. 5. Increased wheezing-resolved now 6. Thrombocytopenia - discontinue Heparin. Trend for further decrease. DVT ppx: SCDs DC planning: Return to [facility]CF when stable This patient was seen by Reginaldo Dugan PA-C under the supervision of Doctor Moore. <Eden Moore - Last Filed: 02/05/18 14:19> - Physical Exam Vital Signs Temp Pulse Resp BP Pulse Ox 98.8 F 78 18 115/65 94 02/05/18 08:30 02/05/18 08:30 02/05/18 08:30 02/05/18 08:30 02/05/18 08:30 Oxygen Delivery Method Room Air Weight: 99.9 kg Body Mass Index (BMI) 31.6 Intake and Output for Last 24 Hours 02/03/18 02/04/18 02/05/18 23:59 23:59 23:59 Intake Total 4044 / 4044 3484 / 3484 867 / 867 Output Total 1450 / 1450 3625 / 3625 1100 / 1100 Balance 2594 / 2594 -141 / -141 -233 / -233 Laboratory Tests Past 24 Hrs 02/04/18 02/05/18 02/05/18 17:21 05:35 05:35 WBC 3.1 L RBC 3.88 L Hgb 12.5 L Hct 36.0 L MCV 92.8 MCH 32.2 H MCHC 34.7 RDW 13.6 RDW Differential 45.3 H Plt Count 67 L MPV 11.8 Immature Gran % (Auto) 0.300 Neut % (Auto) 43.9 L Lymph % (Auto) 33.1 [place] % (Auto) 21.1 H Eos % (Auto) 1.3 Baso % (Auto) 0.3 Absolute Neuts (auto) 1.4 L Absolute Lymphs (auto) 1.02 Total Counted Not Reportable Sodium 142 Potassium 3.8 Chloride 107 Carbon Dioxide 28.0 Anion Gap 7 BUN 6 L Creatinine 0.75 Estim Creat Clear Calc 70.97 Est GFR (MDRD) Af Amer 133 Est GFR (MDRD) Non-Af 110 BUN/Creatinine Ratio 8.0 L Glucose 104 Calcium 7.8 L Vancomycin Trough 15.5 H Assessment/Plan Patient seen and examined independently. I agree with the physician office assistantKailee's notes and assessment and plan as above. Patient complains of a frontal headache, denies any fever or chills. No acute events overnight. Vitals were reviewed and were stable. No fevers were seen. Urine cultures and blood cultures were growing the same organism. Repeat blood cultures are pending. Will request for TTE. Currently on vancomycin and ceftriaxone, will continue same Code Visit Inpatient E&M: 89515 Subs Hosp L2
--- NOTE | 2018-02-05 12:44 | PCM.HP.ID ---
Problem List (1) Bacteremia due to Gram-negative bacteria Status: Acute Reason for Consult: (+) bcx Consulted by: Dr. Wu History of Present Illness: The patient is a 72 year old M with MRDD and suprapubic catheter, recent admit a few months ago for MRSA, enterococcus, providencia, and proteus bacteremia. Now back 02/02 with acute illness with fever, chills, confusion, not feeling well. He is not able to recall what changed. No issues with catheter. No new joint/back pain. Cxs sent. Temp up to 103.3 on presentation. Fever now resolved on vanc/meropenem. Full ROS performed and neg except as noted above. - Medical History Past Medical History (Chronic Problems): Chronic Problems Epilepsy (Chronic) Chronic indwelling Champagne catheter (Chronic) Mental retardation (Chronic) Peripheral vascular disease (Chronic) Major depression (Chronic) Convulsion (Chronic) Allergies/Adverse Reactions: Allergies No Known Allergies Allergy (Verified 03/17/17 17:06) Home Medications: Ambulatory Orders Medication Instructions Recorded Aspirin [Aspirin, Baby] 81 mg PO DAILY@0800 03/17/17 Carbamazepine 400 mg PO QHS 03/17/17 Multivitamin [Daily Multiple 1 each PO DAILY 03/17/17 Vitamin] Sennosides/Docusate Sodium [Senna 1 each PO QHS 03/17/17 Plus Tablet] Sertraline HCl [Zoloft] 50 mg PO DAILY 03/17/17 Tamsulosin HCl [Flomax] 0.4 mg PO DAILY@1730 capsule 03/22/17 Polyethylene Glycol 3350 [Miralax] 17 gm PO DAILY 04/09/17 Phenytoin Na [Dilantin] 300 mg PO QHS #90 cap 04/11/17 - Social History SMOKING STATUS:: Unknow if ever smoked Vital Signs Temp Pulse Resp BP Pulse Ox 98.8 F 78 18 115/65 94 02/05/18 08:30 02/05/18 08:30 02/05/18 08:30 02/05/18 08:30 02/05/18 08:30 Oxygen Delivery Method Room Air Weight: 99.9 kg Body Mass Index (BMI) 31.6 Laboratory Tests Past 24 Hrs 02/04/18 02/05/18 02/05/18 17:21 05:35 05:35 WBC 3.1 L RBC 3.88 L Hgb 12.5 L Hct 36.0 L MCV 92.8 MCH 32.2 H MCHC 34.7 RDW 13.6 RDW Differential 45.3 H Plt Count 67 L MPV 11.8 Immature Gran % (Auto) 0.300 Neut % (Auto) 43.9 L Lymph % (Auto) 33.1 [place] % (Auto) 21.1 H Eos % (Auto) 1.3 Baso % (Auto) 0.3 Absolute Neuts (auto) 1.4 L Absolute Lymphs (auto) 1.02 Total Counted Not Reportable Sodium 142 Potassium 3.8 Chloride 107 Carbon Dioxide 28.0 Anion Gap 7 BUN 6 L Creatinine 0.75 Estim Creat Clear Calc 70.97 Est GFR (MDRD) Af Amer 133 Est GFR (MDRD) Non-Af 110 BUN/Creatinine Ratio 8.0 L Glucose 104 Calcium 7.8 L Vancomycin Trough 15.5 H - Other Studies Radiology: [] reviewed Other Studies: [] Route of nutrition/ use of supplements: [] Nutritional Intake: [] IV Site: [] Champagne Catheter: [] - Physical Exam General: Alert, Cooperative, - - oriented x2 HEENT: Atraumatic, PERRLA, EOMI Neck: Supple, No Nodes Lungs: Clear to auscultation, Normal air movement Cardiovascular: Regular rate, Regular Rhythm, No murmurs Abdomen: Soft, Non Tender, Non-Distended, - - no redness around suprapubic catheter Extremities: Edema Skin: No rashes IV Site: Peripheral, without redness Musculoskeletal: No Tenderness to Palpation of Joints or Extremities Neurological: Cranial nerves II-XII grossly intact - Assessment/Plan Antibiotics: [] Assessment/Plan: [] Active and Suspected Problems Lethargy (Acute) Recurrent bacteremia from likely urinary source - bcx with proteus and MRSA. Repeat bcx pending. TTE pending. Narrow abx to vanc/ceftriaxone. May need suprapubic catheter exchange to help with source control. Thank you, will follow
[2018-02-05 14:30] VITALS: BP 136/83; PULSE 69; RESP 18; TEMP 36.2; O2SAT 96
[2018-02-05] MEDS: 0.9% NaCl Peripheral Flush Adult/Peds IV (17:50)
[2018-02-05] MEDS: Tamsulosin HCl 0.4 MG Capsule PO (17:51)
[2018-02-05 20:30] VITALS: BP 130/68; PULSE 72; RESP 18; TEMP 35.9; O2SAT 94
[2018-02-05] MEDS: carBAMazepine 200 MG Tablet 400 MG PO (22:36)
[2018-02-05] MEDS: Senna/Docusate Sodium 1 Tablet PO (22:36)
[2018-02-05] MEDS: Phenytoin Na 100 MG Capsule 300 MG PO (22:36)
[2018-02-06 02:20] VITALS: BP 119/57; PULSE 74; RESP 16; TEMP 36.6; O2SAT 95
[2018-02-06 06:09] LABS: Absolute Lymphocyte Count 1.27 X10^3/ul (0.83-4.51); Absolute Neutrophil Count 1.4 X10^3/uL (2.0-7.7); Basophil# 0.02 X10^3/uL; Basophil% 0.6 % (0-1); Eosinophil# 0.06 X10^3/uL; Eosinophils% 1.7 % (0-5); Hematocrit 34.4 % (40-54); Hemoglobin 12.1 g/dl (13.0-16.5); Lymphocyte # 1.27 X10^3/ul (4.0); Lymphocyte % 36.3 % (19-41); Mean Corp Hgb Conc 35.2 g/gl (32-36); Mean Corpuscular Hgb 31.8 pg (27.0-32.0); Mean Corpuscular Volume 90.5 fL (80-94); Mean Platelet Vol. 11.2 fl (6.2-12.0); Monocyte# 0.73 X10^3/uL; Monocyte% 20.9 % (0-10); Neutrophil % 39.9 % (47-70); Platelet Count 84 K/mm3 (150-450); RBC Distribution Width CV 13.9 % (11.6-14.6); RBC Distribution Width SD 46.3 fl (35.1-43.9); White Blood Count 3.5 K/mm3 (4.4-11.0)
[2018-02-06 06:16] LABS: POSITIVE COUNT NO; POSITIVE DIFFERENTIAL NO; POSITIVE MORPHOLOGY NO
--- NOTE | 2018-02-06 07:24 | PN_ITS ---
Patient Problems: Active and Suspected Problems Lethargy (Acute) Objective: Physical Exam General: Alert, Oriented x3, Cooperative HEENT: Atraumatic, PERRLA, EOMI, Normocephalic Neck: Supple, No JVD, Negative Carotid Bruits Lungs: Clear to auscultation, Normal air movement Cardiovascular: Regular rate, No murmurs Abdomen: Bowel Sounds Present, Soft, Non Tender Extremities: No edema, Capillary Refill Less than 3 Seconds Skin: No rashes, No breakdown Musculoskeletal: No Tenderness to Palpation of Joints or Extremities Neurological: Cranial nerves II-XII grossly intact Psych/Mental Status: Normal Affect, Appropriate Vitals/I&O's: Vital Signs Temp Pulse Resp BP Pulse Ox 97.9 F 74 16 119/57 L 95 02/06/18 02:20 02/06/18 02:20 02/06/18 02:20 02/06/18 02:20 02/06/18 02:20 Oxygen Delivery Method Room Air Weight: 99.9 kg Body Mass Index (BMI) 31.6 Intake and Output for Last 24 Hours 02/04/18 02/05/18 02/06/18 23:59 23:59 23:59 Intake Total 3484 / 3484 867 / 867 Output Total 3625 / 3625 1100 / 1100 1999 Balance -141 / -141 -233 / -233 -1999 Laboratory Results 02/06/18 05:30: WBC 3.5 L, RBC 3.80 L, Hgb 12.1 L, Hct 34.4 L, MCV 90.5, MCH 31.8, MCHC 35.2, RDW 13.9, RDW Differential 46.3 H, Plt Count 84 L, MPV 11.2, Immature Gran % (Auto) 0.600, Neut % (Auto) 39.9 L, Lymph % (Auto) 36.3, [place] % (Auto) 20.9 H, Eos % (Auto) 1.7, Baso % (Auto) 0.6, Absolute Neuts (auto) 1.4 L , Absolute Lymphs (auto) 1.27, Total Counted Not Reportable Current Medications Acetaminophen (Tylenol) 650 mg PO Q6H PRN PRN PRN Reason: Mild Pain (1-3)/Temp > 100.7 F Last Admin: 02/03/18 05:48 Dose: 650 mg Acetaminophen (Tylenol) 650 mg RECTAL Q6H PRN PRN PRN Reason: Fever >101 Last Admin: 02/02/18 16:58 Dose: 650 mg Albuterol Sulfate (Ventolin Aerosols) 2.5 mg INHALATION Q2H PRN PRN PRN Reason: SOB &/OR WHEEZING Last Admin: 02/03/18 17:04 Dose: 2.5 mg Aspirin (Aspirin, Baby) 81 mg PO DAILY@0800 [facility] Last Admin: 02/05/18 09:57 Dose: 81 mg Carbamazepine (Tegretol) 400 mg PO QHS [facility] Last Admin: 02/05/18 22:36 Dose: 400 mg Sodium Chloride () 1,000 mls @ 60 mls/hr IV .[id number] [facility] Last Admin: 02/06/18 00:13 Dose: Not Given Vancomycin HCl (Vancomycin) 1,000 mg in 200 mls @ 200 mls/hr IV Q8H [facility] Last Admin: 02/06/18 02:52 Dose: Not Given Ceftriaxone Sodium 2 gm/ (Sodium Chloride) 50 mls @ 100 mls/hr IV Q24 [facility] Last Admin: 02/05/18 12:21 Dose: 100 mls/hr Nutritional Formula (Lactose Free) (Ensure Enlive) 120 ml PO 4X/DAY [facility] Last Admin: 02/05/18 22:36 Dose: 120 ml Phenytoin Sodium (Dilantin) 300 mg PO QHS [facility] Last Admin: 02/05/18 22:36 Dose: 300 mg Polyethylene Glycol (Miralax) 17 gm PO DAILY [facility] Last Admin: 02/05/18 09:57 Dose: 17 gm Senna/Docusate Sodium (Senokot-S, Tamar-Colace) 1 tablet PO QHS [facility] Last Admin: 02/05/18 22:36 Dose: 1 tablet Sertraline HCl (Zoloft) 50 mg PO DAILY [facility] Last Admin: 02/05/18 09:57 Dose: 50 mg Sodium Chloride () 5 - 30 ml IV UD PRN PRN Reason: SALINE FLUSH Last Admin: 02/05/18 17:50 Dose: 10 ml Tamsulosin HCl (Flomax) 0.4 mg PO DAILY@1730 [facility] Last Admin: 02/05/18 17:51 Dose: 0.4 mg Medical Necessity - Tobacco Use Smoking Status: Unknown if ever smoked Tobacco Use: Non-smoker Assessment/Plan Active and Suspected Problems Lethargy (Acute) Patient seen and examined independently. I agree with the physician funeral director's assistant, Kailee's notes and assessment and plan as above. Patient complains of a frontal headache, denies any fever or chills. No acute events overnight. Vitals were reviewed and were stable. No fevers were seen. Urine cultures and blood cultures were growing the same organism. Repeat blood cultures are pending. Will request for TTE. Currently on vancomycin and ceftriaxone, will continue same
[2018-02-06] MEDS: Aspirin 81 MG TAB.CHEW PO (08:47)
[2018-02-06 08:51] VITALS: BP 129/62; PULSE 71; RESP 16; TEMP 36.6; O2SAT 94
--- NOTE | 2018-02-06 10:27 | PN.ID_ITS ---
Patient Problems: Active and Suspected Problems Lethargy (Acute) Subjective: Aching all over, no fever. Lost iv access, so missed AM dose of abx. - Physical Exam General: Alert, Cooperative Lungs: Clear to auscultation, Normal air movement Cardiovascular: Regular rate, Regular Rhythm Abdomen: Soft, Non Tender, Non-Distended Skin: No rashes Vital Signs Temp Pulse Resp BP Pulse Ox 97.8 F 71 16 129/62 H 94 02/06/18 08:51 02/06/18 08:51 02/06/18 08:51 02/06/18 08:51 02/06/18 08:51 Oxygen Delivery Method Room Air Weight: 99.9 kg Body Mass Index (BMI) 31.6 Intake and Output for Last 24 Hours 02/04/18 02/05/18 02/06/18 23:59 23:59 23:59 Intake Total 3484 / 3484 867 / 867 Output Total 3625 / 3625 1100 / 1100 1999 Balance -141 / -141 -233 / -233 -1999 Laboratory Tests Past 24 Hrs 02/06/18 02/06/18 05:30 09:24 WBC 3.5 L RBC 3.80 L Hgb 12.1 L Hct 34.4 L MCV 90.5 MCH 31.8 MCHC 35.2 RDW 13.9 RDW Differential 46.3 H Plt Count 84 L MPV 11.2 Immature Gran % (Auto) 0.600 Neut % (Auto) 39.9 L Lymph % (Auto) 36.3 [place] % (Auto) 20.9 H Eos % (Auto) 1.7 Baso % (Auto) 0.6 Absolute Neuts (auto) 1.4 L Absolute Lymphs (auto) 1.27 Total Counted Not Reportable Vancomycin Trough Pending Medical Necessity - Tobacco Use Smoking Status: Unknown if ever smoked Tobacco Use: Non-smoker Route of nutrition/ use of supplements: [] Nutritional Intake: [] IV Site: [] Champagne Catheter: [] - Assessment/Plan Antibiotics: [] Assessment/Plan: [] Active and Suspected Problems Lethargy (Acute) Recurrent bacteremia from likely urinary source - bcx with proteus and MRSA. Repeat bcx neg so far. TTE with no veg. Narrowed abx to vanc/ceftriaxone. If he needs access, ok for picc placement. Plan is for 6 weeks vanc and ceftriaxone with weekly bmp, cbc, vanc trough while on iv abx. Should be scheduled for suprapubic cath change while on iv abx to help with source control. Will follow. D/w Dr. Moore.
[2018-02-06 10:28] LABS: Vancomycin, Trough Level 11.6 ug/mL (5.0-15.0)
--- NOTE | 2018-02-06 10:49 | CASEMGMT ---
Addendum entered by Gretel Lara 02/07/18 10:18: Pt was discharged yesterday to [facility], RN set up the discharge as this SW had left for the day. COLTON Cano, REHNA Original Note: Addendum entered by Gretel Lara 02/06/18 11:39: SW spoke w/physician, she states if pt gets his PICC line in today he actually can return to the longterm today. SW called [facility], spoke w/Jannette, they can take pt back today, will have pt's IV antibiotics ready, can give the 8pm dose of Vancomycin. SW will continue to follow for discharge to [facility] most likely later today. COLTON Cano, REHAN Original Note: JONN spoke w/physician, pt will need to go to longterm on IV antibiotics, will likely get a PICC line today and be ready tomorrow. JONN called Jannette at [facility], let her know pt will likely be ready tomorrow, will be coming on IV antibiotics. JONN reviewed the antibiotics pt will need, and faxed her the med list and Infectious Disease physician's note. SW will continue to follow for discharge back to [facility] when pt is ready. COLTON Cano, REHAN
[2018-02-06] MEDS: Sertraline 50 MG Tablet PO (10:54)
[2018-02-06] MEDS: Polyethylene Glycol 3350 17 GM PACKET PO (10:54)
--- NOTE | 2018-02-06 11:19 | PHA.PHARE_ITS ---
Consult Pharmacy has been consulted to manage selected antiobiotic: Vancomycin Type of Consult: Follow-up Suspected Infection: Bacteremia Prior Doses of Antibiotics Received/Current Regimen: VANCOMYCIN 1G Q8H - LAST DOSE 02/05 @1751, PT LOST IV ACCESS. Labs: Sodium 142 mmol/L (136-145) 02/05/18 05:35 Potassium 3.8 mmol/L (3.5-5.1) 02/05/18 05:35 Chloride 107 mmol/L (98-107) 02/05/18 05:35 Carbon Dioxide 28.0 mmol/L (21.0-32.0) 02/05/18 05:35 Anion Gap 7 (5-15) 02/05/18 05:35 BUN 6 mg/dL (7-18) L 02/05/18 05:35 Creatinine 0.75 mg/dL (0.70-1.30) 02/05/18 05:35 Est GFR (MDRD) Af Amer 133 mL/min (>60) 02/05/18 05:35 Est GFR (MDRD) Non-Af 110 mL/min (>60) 02/05/18 05:35 BUN/Creatinine Ratio 8.0 RATIO (10-20) L 02/05/18 05:35 Glucose 104 mg/dL (74-106) 02/05/18 05:35 Vancomycin Trough 11.6 ug/mL (5.0-15.0) 02/06/18 09:24 Goal Trough: 15-20 mcg/mL Pharmacy Plan for Drug Dosing: The patient had a trough come back @0924, which resulted in a value of 11.6 ( 15.5hr level from last dose). This is not an accurate level, as the patient had lost IV access, and missed a dose of antibiotic. Pharmacy verified line is anthony in place, and retimed the antibiotic, in order to get the patient a dose and back on schedule. Will plan on drawing another level to assess that the patient is back within therapeutic range of 15-20, as the patient is positive for MRSA bacteremia and MRSA in the Urine per microbiology review. PLAN/RECOMMENDATIONS 1. Continue vancomycin 1g IV Q8hrs to resume 02/06/18 @1200 2. Trough ordered for 02/08/18 @1130 to assess if patient back within therapeutic range 3. Pharmacy will continue to monitor and make changes as appropriate.
--- NOTE | 2018-02-06 11:58 | PCM.TXEXTCAR ---
- Diet 02/02/18 11:01 Diet: Regular Diet Food consistency:: Mechanical Soft/Ground Liquid Consistency:: Regular/Thin Dietary Modifications:: Mechanical Soft Diet Is pt able to select menu?: No Diet Comments: supervision, liquids by straw only (staff/family), meds crushed in purees - Routine Orders/Code Status Suppository Type: Dulcolax 10mg Suppository Frequency: Daily PRN Routine Lab Work: CBC - weekly, BMP - weekly, - - vanc troughs - Wound(s) LHand Wound Type: IV site infiltration - Therapies Physical Therapy: Eval and Treat Occupational Therapy: Eval and Treat - Problem/Diagnosis (1) Bacteremia Status: Acute Current Visit: Yes (2) Sepsis Status: Acute Current Visit: Yes (3) Thrombocytopenia Status: Acute Current Visit: Yes (4) UTI (urinary tract infection) Status: Acute Current Visit: No (5) Epilepsy Status: Chronic Current Visit: No (6) Chronic indwelling Champagne catheter Status: Chronic Current Visit: No (7) Encephalopathy acute Status: Acute Current Visit: No (8) BPH with urinary obstruction Status: Acute Current Visit: No (9) Peripheral vascular disease Status: Chronic Current Visit: No (10) Major depression Status: Chronic Current Visit: No - Allergies/Procedures Done in Hospital Allergies/Adverse Reactions: Allergies No Known Allergies Allergy (Verified 03/17/17 17:06) Procedures: 2-D Echocardiogram - Type of Care/Length of Stay Estimated LOS: More Than 30 Days Type of Care Needed: Skilled Rehab Potential: Fair Prognosis: Fair - Additional Orders/Day of Discharge Day of Discharge: 02/06/18 - Dietary and Speech Recommendations Dietitian Recommendations/Changes: Rec continue liberal Regular diet - consistency per [employer] - with ONS medpass - Follow Up Care Primary Care Physician: Glenn Ramos MD [Primary Care Provider] - Please follow up with your Primary Care Physician in: 1-2 weeks Please Follow Up With: Your urologist - Change Suprapubic cath When: 1 week
[2018-02-06 14:31] VITALS: BP 127/67; PULSE 66; RESP 16; TEMP 36.4; O2SAT 97
--- NOTE | 2018-02-06 14:45 | PCM.DC.SUM ---
<Reginaldo Dugan - Last Filed: 02/06/18 14:45> Discharge Date and Diagnosis - Problem List Patient Problems: Active and Suspected Problems Lethargy (Acute) Bacteremia (Acute) Sepsis (Acute) Thrombocytopenia (Acute) Date of Admission: 02/02/18 Date of Discharge: 02/06/18 - Primary Discharge Diagnosis Active and Suspected Problems Recurrent sepsis and bacteremia 2/2 UTI, suprapubic catheter, MRSA and proteus MRDD Acute metabolic encephalopathy 2/2 sepsis seizure disorder BPH Thrombocytopenia - Secondary Discharge Diagnosis Chronic Problems Epilepsy (Chronic) Chronic indwelling Champagne catheter (Chronic) Mental retardation (Chronic) Peripheral vascular disease (Chronic) Major depression (Chronic) Convulsion (Chronic) Hospital Course and Treatment Imaging Results: RAD/Chest 1 View (Portable) IMPRESSION: Degenerative changes, as described above. No demonstrated acute cardiopulmonary process. CT/Brain/Head without Contrast IMPRESSION: Chronic involutional changes of the brain. There is disproportionate enlargement of the lateral and third ventricles, as compared to the extra-axial spaces. The findings suggest normal pressure hydrocephalus (NPH). RAD/Chest PA and Lateral IMPRESSION: Degenerative changes, as described above. No demonstrated acute cardiopulmonary process. Echo: Interpretation Summary Normal LV size. Left ventricular systolic function is normal. The estimated ejection fraction is 60 %. No evidence for diastolic dysfunction. Contrast injection was performed. Consults: REGINO Roman Operations: None Procedures: 2-D Echocardiogram Summary of Care Provided: Physical exam on day of discharge: General: Resting comfortably NAD Psych: A/Ox3 normal affect HEENT: PEARRLA AT NC Neck: Supple NT CV: RRR no m/t/r/g/h Resp: CTA Abd: [id number] Soft NT no guarding or rigidity Ext: DP2+= no edema Skin: W/D normal turgor Lymph/Heme: No active bleeding or adenopathy Neuro: CN2-12 intact Hospital course: The patient is a 72 year old M with a history of BPH with a suprapubic catheter, MRDD, prior sepsis and bacteremia with MRSA and Proteus treated as an outpatient with IV antibiotics, resident at [facility], who presented to the emergency room from his [facility] facility with increased lethargy, fever, positive urinalysis, was felt to be in sepsis again secondary to acute cystitis related to the suprapubic catheter. He was admitted to the hospital and started on meropenem and vancomycin for broad-spectrum coverage. Is felt to have acute metabolic encephalopathy contributing to his increased lethargy secondary to the sepsis. He improved overnight with administration of IV antibiotics mentation improved back to normal. He developed positive blood cultures with MRSA and Proteus. An echocardiogram was obtained which was negative. Infectious disease was consulted. Vancomycin was continued and meropenem was changed to ceftriaxone to cover for Proteus. He continued to improve and his fever broke. It was determined that he could be discharged back to extended care once his repeat cultures were negative. He would need to complete a total of 6 weeks of Rocephin and vancomycin IV. He will need weekly CBCs and BMPs, and factor office. He will also need to have close follow-up with his urologist as he may need to have his suprapubic catheter exchanged if he is having recurrent infections due to it. He was discharged back to [facility] in stable condition. This patient was seen by Reginaldo Dugan PA-C under the supervision of Doctor Moore. [] Discharge Diet: No Restrictions Discharge Activity: Return to Normal Activity Home Medications: Medications to take at Discharge Aspirin [Aspirin, Baby] 81 mg PO DAILY@0800 03/17/17 Carbamazepine 400 mg PO QHS 03/17/17 Multivitamin [Daily Multiple Vitamin] 1 each PO DAILY 03/17/17 Sennosides/Docusate Sodium [Senna Plus Tablet] 1 each PO QHS 03/17/17 Sertraline HCl [Zoloft] 50 mg PO DAILY 03/17/17 Tamsulosin HCl [Flomax] 0.4 mg PO DAILY@1730 capsule 03/22/17 Polyethylene Glycol 3350 [Miralax] 17 gm PO DAILY 04/09/17 Acetaminophen [Tylenol Tablet] 650 mg PO Q6H PRN PRN tablet 02/06/18 Albuterol Aerosols [Ventolin Aerosols] 2.5 mg INHALATION Q2H PRN PRN vial.neb. 02/06/18 Ceftriaxone 2 gm IV Q24 vial 02/06/18 Ensure Enlive 120 ml PO 4X/DAY liquid 02/06/18 Phenytoin Na [Dilantin] 300 mg PO QHS capsule 02/06/18 Vancomycin 1,000 mg IV Q8H bag 02/06/18 Primary Care Physician: Glenn Ramos MD [Primary Care Provider] - Please follow up with your Primary Care Physician in: 1-2 weeks Please Follow Up With: Your urologist - Change Suprapubic cath When: 1 week Disposition: [facility] facility Minutes spent on discharge:: 35 Patient Condition:: Stable Medical Necessity - Tobacco Use Smoking Status: Unknown if ever smoked Tobacco Use: Non-smoker Meaningful Use Info Meaningful Use Diagnoses (Choose all that apply): None applicable <Eden Moore - Last Filed: 02/06/18 15:33> Discharge Date and Diagnosis - Primary Discharge Diagnosis Active and Suspected Problems Lethargy (Acute) Bacteremia (Acute) Sepsis (Acute) Thrombocytopenia (Acute) - Secondary Discharge Diagnosis Chronic Problems Epilepsy (Chronic) Chronic indwelling Champagne catheter (Chronic) Mental retardation (Chronic) Peripheral vascular disease (Chronic) Major depression (Chronic) Convulsion (Chronic) Hospital Course and Treatment Summary of Care Provided: The patient is a 72 year old M [] Code Visit Inpatient E&M: 84002 Disch Hosp
--- NOTE | 2018-02-06 14:52 | DS.PCM_ITS ---
<Reginaldo Dugan - Last Filed: 02/06/18 14:45> Discharge Date and Diagnosis - Problem List Patient Problems: Active and Suspected Problems Lethargy (Acute) Bacteremia (Acute) Sepsis (Acute) Thrombocytopenia (Acute) Date of Admission: 02/02/18 Date of Discharge: 02/06/18 - Primary Discharge Diagnosis Active and Suspected Problems Recurrent sepsis and bacteremia 2/2 UTI, suprapubic catheter, MRSA and proteus MRDD Acute metabolic encephalopathy 2/2 sepsis seizure disorder BPH Thrombocytopenia - Secondary Discharge Diagnosis Chronic Problems Epilepsy (Chronic) Chronic indwelling Champagne catheter (Chronic) Mental retardation (Chronic) Peripheral vascular disease (Chronic) Major depression (Chronic) Convulsion (Chronic) Hospital Course and Treatment Imaging Results: RAD/Chest 1 View (Portable) IMPRESSION: Degenerative changes, as described above. No demonstrated acute cardiopulmonary process. CT/Brain/Head without Contrast IMPRESSION: Chronic involutional changes of the brain. There is disproportionate enlargement of the lateral and third ventricles, as compared to the extra-axial spaces. The findings suggest normal pressure hydrocephalus (NPH). RAD/Chest PA and Lateral IMPRESSION: Degenerative changes, as described above. No demonstrated acute cardiopulmonary process. Echo: Interpretation Summary Normal LV size. Left ventricular systolic function is normal. The estimated ejection fraction is 60 %. No evidence for diastolic dysfunction. Contrast injection was performed. Consults: REGINO Roman Operations: None Procedures: 2-D Echocardiogram Summary of Care Provided: Physical exam on day of discharge: General: Resting comfortably NAD Psych: A/Ox3 normal affect HEENT: PEARRLA AT NC Neck: Supple NT CV: RRR no m/t/r/g/h Resp: CTA Abd: [id number] Soft NT no guarding or rigidity Ext: DP2+= no edema Skin: W/D normal turgor Lymph/Heme: No active bleeding or adenopathy Neuro: CN2-12 intact Hospital course: The patient is a 72 year old M with a history of BPH with a suprapubic catheter , MRDD, prior sepsis and bacteremia with MRSA and Proteus treated as an outpatient with IV antibiotics, resident at [facility], who presented to the emergency room from his [facility] facility with increased lethargy, fever, positive urinalysis, was felt to be in sepsis again secondary to acute cystitis related to the suprapubic catheter. He was admitted to the hospital and started on meropenem and vancomycin for broad-spectrum coverage. Is felt to have acute metabolic encephalopathy contributing to his increased lethargy secondary to the sepsis. He improved overnight with administration of IV antibiotics mentation improved back to normal. He developed positive blood cultures with MRSA and Proteus. An echocardiogram was obtained which was negative. Infectious disease was consulted. Vancomycin was continued and meropenem was changed to ceftriaxone to cover for Proteus. He continued to improve and his fever broke. It was determined that he could be discharged back to extended care once his repeat cultures were negative. He would need to complete a total of 6 weeks of Rocephin and vancomycin IV. He will need weekly CBCs and BMPs, and factor office. He will also need to have close follow-up with his urologist as he may need to have his suprapubic catheter exchanged if he is having recurrent infections due to it. He was discharged back to [facility] in stable condition. This patient was seen by Reginaldo Dugan PA-C under the supervision of Doctor Moore. [] Discharge Diet: No Restrictions Discharge Activity: Return to Normal Activity Home Medications: Medications to take at Discharge Aspirin [Aspirin, Baby] 81 mg PO DAILY@0800 03/17/17 Carbamazepine 400 mg PO QHS 03/17/17 Multivitamin [Daily Multiple Vitamin] 1 each PO DAILY 03/17/17 Sennosides/Docusate Sodium [Senna Plus Tablet] 1 each PO QHS 03/17/17 Sertraline HCl [Zoloft] 50 mg PO DAILY 03/17/17 Tamsulosin HCl [Flomax] 0.4 mg PO DAILY@1730 capsule 03/22/17 Polyethylene Glycol 3350 [Miralax] 17 gm PO DAILY 04/09/17 Acetaminophen [Tylenol Tablet] 650 mg PO Q6H PRN PRN tablet 02/06/18 Albuterol Aerosols [Ventolin Aerosols] 2.5 mg INHALATION Q2H PRN PRN vial.neb. 02/06/18 Ceftriaxone 2 gm IV Q24 vial 02/06/18 Ensure Enlive 120 ml PO 4X/DAY liquid 02/06/18 Phenytoin Na [Dilantin] 300 mg PO QHS capsule 02/06/18 Vancomycin 1,000 mg IV Q8H bag 02/06/18 Primary Care Physician: Glenn Ramos MD [Primary Care Provider] - Please follow up with your Primary Care Physician in: 1-2 weeks Please Follow Up With: Your urologist - Change Suprapubic cath When: 1 week [facility]position: [facility] Minutes spent on discharge:: 35 Patient Condition:: Stable Medical Necessity - Tobacco Use Smoking Status: Unknown if ever smoked Tobacco Use: Non-smoker Meaningful Use Info Meaningful Use Diagnoses (Choose all that apply): None applicable <Eden Moore - Last Filed: 02/06/18 15:33> Discharge Date and Diagnosis - Primary Discharge Diagnosis Active and Suspected Problems Lethargy (Acute) Bacteremia (Acute) Sepsis (Acute) Thrombocytopenia (Acute) - Secondary Discharge Diagnosis Chronic Problems Epilepsy (Chronic) Chronic indwelling Champagne catheter (Chronic) Mental retardation (Chronic) Peripheral vascular disease (Chronic) Major depression (Chronic) Convulsion (Chronic) Hospital Course and Treatment Summary of Care Provided: The patient is a 72 year old M [] Code Visit Inpatient E&M: 16048 Disch Hosp
[2018-02-06] MEDS: Tamsulosin HCl 0.4 MG Capsule PO (16:54)
== END 2018-02-06 17:55 | DRG 871 ==
LOC: ED 00:59 → MS2 03:34
PROVIDERS: Physician Assistant; Admitting Provider Internal Medicine; Emergency Provider Emergency Medicine; Family Provider Family Medicine; PCP Family Medicine; Visit Provider Internal Medicine
DX: A41.9 Sepsis, unspecified organism (principal); G93.41 Metabolic encephalopathy; T83.518A Infection and inflammatory reaction due to other urinary catheter, initial encounter; N30.00 Acute cystitis without hematuria; I73.9 Peripheral vascular disease, unspecified; F79 Unspecified intellectual disabilities; F32.9 Major depressive disorder, single episode, unspecified; G40.909 Epilepsy, unspecified, not intractable, without status epilepticus; N40.0 Benign prostatic hyperplasia without lower urinary tract symptoms; Z79.82 Long term (current) use of aspirin; Y84.6 Urinary catheterization as the cause of abnormal reaction of the patient, or of later complication, without mention of misadventure at the time of the procedure; D69.6 Thrombocytopenia, unspecified; A49.02 Methicillin resistant Staphylococcus aureus infection, unspecified site; Z66 Do not resuscitate
CPT/HCPCS: 36415; 36569; 70450; 71045; 71046; 80048; 80053; 80185; 80202; 81001; 82962; 83605; 85025; 85610; 85730; 87040; 87077; 87086; 87088; 87186; 92507; 92526; 93005; 93306; 94640; 97162; 97166; 99285; J2185; J7030; J7040; Q9957; A4216; C8929; J0696

== ENCOUNTER 2018-03-31 11:39 | Emergency (ER) | payer MEDICARE, MEDICAID, SELFPAY ==
[2018-03-31] VITALS (14 sets, daily range): BP systolic 80–202; BP diastolic 56–105; PULSE 74–155; RESP 13–36; TEMP 37.3–38.7; O2SAT 22–99; BMI 30.4
[2018-03-31] MEDS: Midazolam 5 MG/ML Syringe IM (11:45)
[2018-03-31] MEDS: LORazepam 2 MG/ML Syringe IV (11:54)
--- NOTE | 2018-03-31 12:18 | ED.RN ---
1140 presented to ed sezing. eyes fluttering, altered breathing, few second in ed began convulsing. iv light being attempted as im meds adminstered see dec. convusing intermittent for appx 1-2 minutes at at time. eyes continue to flutter not coming completely out of seizure. 1205 dilantin started continues to have eye cluttering, no further convusing. 1210 dr talamantes aware of pt status and continued eye movement.
--- NOTE | 2018-03-31 12:22 | ED.RN ---
dr talamantes at bedside.
--- NOTE | 2018-03-31 12:36 | ED.RN ---
Addendum entered by Lizet Mckenna 03/31/18 12:38: skin color improved. pt no longer diaphoretic. Original Note: no further eye fluttering. resting no distress.breathing even and unlabored. hr coming down. dr talamantes at bedside to reeval
--- NOTE | 2018-03-31 12:41 | ED.RN ---
brother at bedside and updated.
[2018-03-31 12:48] LABS: Phenytoin (Dilantin) Level 5.9 mL (10.0-20.0)
--- NOTE | 2018-03-31 12:57 | ED.RN ---
dougie norwood followed up with [facility], pt started seizing appx 1040.
[2018-03-31] MEDS: 0.9% Normal Saline 1,000 ML 999 ML IV (13:15)
[2018-03-31 13:21] LABS: Bedside Glucose 178 mg/dL (70-110)
[2018-03-31 13:38] LABS: Absolute Lymphocyte Count 4.16 X10^3/ul (0.83-4.51); Absolute Neutrophil Count 7.5 X10^3/uL (2.0-7.7); Basophil# 0.04 X10^3/uL; Basophil% 0.3 % (0-1); Eosinophils% 1.5 % (0-5); Hematocrit 41.6 % (40-54); Hemoglobin 14.2 g/dl (13.0-16.5); Lymphocyte # 4.16 X10^3/ul (4.0); Lymphocyte % 30.5 % (19-41); Mean Corp Hgb Conc 34.1 g/gl (32-36); Mean Corpuscular Hgb 31.8 pg (27.0-32.0); Mean Corpuscular Volume 93.3 fL (80-94); Mean Platelet Vol. 9.9 fl (6.2-12.0); Monocyte# 1.67 X10^3/uL; Monocyte% 12.3 % (0-10); Neutrophil # 7.48 X10^3/uL (2.7-7.7); Neutrophil % 54.9 % (47-70); Platelet Count 381 K/mm3 (150-450); RBC Distribution Width CV 13.5 % (11.6-14.6); Red Blood Count 4.46 M/mm3 (4.6-6.2); White Blood Count 13.6 K/mm3 (4.4-11.0)
[2018-03-31 13:39] LABS: Differential Indicated SCAN CRITERIA MET; POSITIVE COUNT NO; POSITIVE DIFFERENTIAL YES; POSITIVE MORPHOLOGY YES
[2018-03-31 13:58] LABS: Anion Gap 17 (5-15); BUN 10 mg/dL (7-18); BUN/Creat Ratio 7.6 RATIO (10-20); Calcium,Total 9.1 mg/dL (8.5-10.1); Chloride 101 mmol/L (98-107); Creatinine, Serum 1.32 mg/dL (0.70-1.30); EST Glomerular Filtration Rate 57 mL/min (>60); Est Glom Filt Rate - Afr Amer 69 mL/min (>60); Estimated Creatinine Clearance 57.15 ml/min; Glucose 170 mg/dL (74-106); Potassium 3.8 mmol/L (3.5-5.1); Sodium Level 136 mmol/L (136-145)
[2018-03-31 14:10] LABS: Reactive Lymphocyte 1+
--- NOTE | 2018-03-31 14:29 | ED.RN ---
clamped catheter fro urine sample
[2018-03-31 14:34] LABS: Lactic Acid 2.8 mmol/L (0.4-2.0)
--- NOTE | 2018-03-31 14:35 | ED.RN ---
LAB CALLED WITH ALERT RESULTS. PT HAS LACTIC ACID OF 2.8. DR. SANCHES NOTIFIED FACE TO FACE, NO ORDERS RECEIVED. WILL CONTINUE TO MONITOR
[2018-03-31 15:36] LABS: Bacteria 0 SEEN /hpf (None Seen); Mucous, Urine 0 SEEN /hpf (<or=2+); Squamous Epithelial Cells - UA 0 SEEN /hpf (0-5)
[2018-03-31 15:45] LABS: Color, Urine Yellow (Yellow); Glucose, Dipstick Normal (Normal); Ketone-Dipstick Negative (Negative); Leukocyte Esterase-Dipstick 500 /ul (Negative); Nitrite-Dipstick Negative (Negative); Occult Blood-Urine 25 /ul (Negative); Protein-Dipstick 30 mg/dl (Negative); Urine Bilirubin Dipstick Negative (Negative); Urine Clarity Sl. Cloudy (Clear); Urine Urobilinogen 1 mg/dl (Normal)
[2018-03-31 16:22] LABS: White Blood Cells >100 SEEN /hpf (0-5)
[2018-03-31 16:23] LABS: Red Blood Cells-Urine 0-5 SEEN /hpf (0-5); Yeast-Urine 3+ /hpf (None Seen)
--- NOTE | 2018-03-31 16:28 | RAD_ITS ---
STUDY: X-RAY CHEST REASON FOR EXAM: Male, 72 years old. Seizures TECHNIQUE: Single frontal view of the chest. COMPARISON: February 03, 2018 FINDINGS: Right CONVEYOR ATTENDANT shunt incompletely imaged. The lungs are clear and expanded. There is no demonstrated pleural abnormality. Normal size heart. Normal mediastinum and huber. Normal visualized pulmonary arteries. Normal visualized aortic arch and descending thoracic aorta. Normal visualized thoracic spine. Normal visualized ribs, clavicles, and shoulders. There is no demonstrated abnormality of the visualized soft tissue structures of the upper abdomen. RAD/Chest 1 View (Portable) IMPRESSION: Normal x-ray examination of the chest. Electronically Signed: Evan Salmon MD at 17:56 EDT , Service support ,
--- NOTE | 2018-03-31 16:54 | ED.VISSUMM ---
- ER Visit Summary Date of Service: 03/31/18 Chief Complaint: Seizure History of Present Illness: The patient is a 72 M who presents from a detention after having a seizure. He does have a history of epilepsy. He is on Tegretol and Dilantin. alf did not administer any medications. Them, the last time he had a breakthrough seizure he had sepsis. He is a DNR comfort care only. Physical Examination: Vital signs are reviewed. Patient is actively seizing. His head has no trauma. His pupils are dilated however they are reactive. Heart is tachycardic and regular rhythm without murmurs. Lungs clear to auscultation bilaterally. Abdomen is soft and nontender. There is a suprapubic catheter in place. Neurologic exam reveals seizure-like activity. The patient is not responsive at this time Test Results: Labs show white blood cell count 13.6, hemoglobin 14.2. Anion gap 17, lactate 2.8. Urinalysis reveals greater than 100 white blood cells. Chest x-ray reveals chronic changes without infiltrates. Emergency Department Course and Treatment: Patient was given 5 mill grams of intramuscular Versed followed by 2 mg of IV Ativan. He was still seizing as his I activity are indicated seizures although there was no arm or leg movement. I gave him 1500 mg of IV Dilantin. Seizure activity stopped. Patient was observed for multiple hours. He was then more responsive. Chest x-ray was performed after he was awake as he did have some abnormal lung sounds after the seizures. It shows no evidence of pneumonia. Patient is able to answer my questions. I did speak with Dr. Mora who is on-call for Dr. Olsen. He was fine with the patient being sent back to the detention. Treatment Plan: [] Disposition: Discharge Impression: Breakthrough seizure This note was generated with [employer] dictation software. It may contain incorrect words, spelling, and punctuation that were not noted in review of the chart prior to signing ED Disposition - Plan for ED Patient: Chief Complaint: Seizure Referrals: Glenn Raoms MD [Primary Care Provider] -
--- NOTE | 2018-03-31 16:58 | ED.DCSUM_ITS ---
- ER Visit Summary Date of Service: 03/31/18 Chief Complaint: Seizure History of Present Illness: The patient is a 72 M who presents from a halfway after having a seizure. He does have a history of epilepsy. He is on Tegretol and Dilantin. jail did not administer any medications. Them, the last time he had a breakthrough seizure he had sepsis. He is a DNR comfort care only. Physical Examination: Vital signs are reviewed. Patient is actively seizing. His head has no trauma. His pupils are dilated however they are reactive. Heart is tachycardic and regular rhythm without murmurs. Lungs clear to auscultation bilaterally. Abdomen is soft and nontender. There is a suprapubic catheter in place. Neurologic exam reveals seizure-like activity. The patient is not responsive at this time Test Results: Labs show white blood cell count 13.6, hemoglobin 14.2. Anion gap 17, lactate 2.8. Urinalysis reveals greater than 100 white blood cells. Chest x-ray reveals chronic changes without infiltrates. Emergency Department Course and Treatment: Patient was given 5 mill grams of intramuscular Versed followed by 2 mg of IV Ativan. He was still seizing as his I activity are indicated seizures although there was no arm or leg movement. I gave him 1500 mg of IV Dilantin. Seizure activity stopped. Patient was observed for multiple hours. He was then more responsive. Chest x- ray was performed after he was awake as he did have some abnormal lung sounds after the seizures. It shows no evidence of pneumonia. Patient is able to answer my questions. I did speak with Dr. Mora who is on-call for Dr. Olsen. He was fine with the patient being sent back to the halfway. Treatment Plan: [] Disposition: Discharge Impression: Breakthrough seizure This note was generated with [employer] dictation software. It may contain incorrect words, spelling, and punctuation that were not noted in review of the chart prior to signing ED Disposition - Plan for ED Patient: Chief Complaint: Seizure Referrals: Glenn Ramos MD [Primary Care Provider] -
--- NOTE | 2018-03-31 16:58 | ED.DEP ---
ED Disposition - Plan for ED Patient: Disposition: Home or Assisted Living Chief Complaint: Seizure Instructions: ED Seizure Recurrent Referrals: Glenn Ramos MD [Primary Care Provider] -
--- NOTE | 2018-03-31 17:17 | ED.RN ---
PT LUNGS SOUNDS RHONCHOROUS IN LEFT LOWER FILED. DR. SANCHES INFORMED. CXRAY ORDERED. PT BECOMING MORE AROUSABLE. ABLE TO ANSWER SIMPLE QUESTIONS. DENIES PAIN AT THIS TIME.
--- NOTE | 2018-03-31 17:28 | ED.RN ---
THIS RN CALLED REPORT TO [facility]. NURSE ON PHONE EDUCATED ON PT D/C INSTRUCTIONS. PT MORE AROUSABLE. PT AWAITING SQUAD FOR TRANSPORT BACK TO [facility].
[2018-03-31 17:57] LABS: Reflex Lactate? Y
[2018-04-02 13:01] LABS: Pathologist Review Reviewed
== END 2018-03-31 17:53 ==
PROVIDERS: Emergency Provider Emergency Medicine; Family Provider Family Medicine; PCP Family Medicine
DX: G40.909 Epilepsy, unspecified, not intractable, without status epilepticus (principal); Z66 Do not resuscitate
CPT/HCPCS: 71045; 80048; 80185; 81001; 82962; 83605; 85025; 87040; 96361; 96374; 99284; J7030; A4216

== ENCOUNTER 2018-12-31 11:40 | Inpatient (IN) | payer MEDICARE, MEDICAID, SELFPAY ==
[2018-12-31] VITALS (21 sets, daily range): BP systolic 103–177; BP diastolic 5–92; PULSE 86–139; RESP 10–30; TEMP 36.6–39.5; O2SAT 92–98; BMI 35.4
--- NOTE | 2018-12-31 11:51 | EKG12_ITS ---
Test Reason : SEIZURE Blood Pressure : / mmHG Vent. Rate : 138 BPM Atrial Rate : 138 BPM P-R Int : 104 ms QRS Dur : 100 ms QT Int : 362 ms P-R-T Axes : 000 032 027 degrees QTc Int : 548 ms Sinus tachycardia with short TN Incomplete right bundle branch block Borderline ECG Confirmed by BALJEET ELKINS, LUIS ([id number]), desk editor ANTHONY AGUILAR ([id number]) on 01/01/2019 2:16:34 PM Referred By: Ortiz López Confirmed By:LUIS DELONG MD
[2018-12-31 12:19] LABS: International Normalized Ratio 1.2; Prothrombin Time (Protime)PT. 14.9 SECONDS (11.7-14.9)
[2018-12-31 12:22] LABS: Partial Thromboplast Time 32.8 Seconds (24.1-36.2)
--- NOTE | 2018-12-31 12:25 | RAD_ITS ---
STUDY: X-RAY CHEST REASON FOR EXAM: Male, 73 years old. seizure, fever, patient not very responsive, unable to follow breathing instructions TECHNIQUE: Single AP portable view of the chest. COMPARISON: None. FINDINGS: Ventriculoperitoneal shunt catheter is seen on the right side. Ill-defined opacities are seen in the right lung lower lobe. The right hemidiaphragm is obscured. There is no demonstrated pleural abnormality. Normal size heart. Normal mediastinum and huber. Normal visualized pulmonary arteries. Normal visualized aortic arch and descending thoracic aorta. Normal visualized thoracic spine. There is degenerative osteoarthritis of the bilateral shoulders. There is no demonstrated abnormality of the visualized soft tissue structures of the upper abdomen. RAD/Chest 1 View (Portable) IMPRESSION: Degenerative changes, as described above. No demonstrated acute cardiopulmonary process. Electronically Signed: Jose Eduardo Grullon, at 13:27 EDT Tel , Service support ,
[2018-12-31 12:27] LABS: ALB/GLOB Ratio 0.9 RATIO (0.9-2.4); AST(SGOT) 25 U/L (15-37); Alanine Aminotransfer ALT/SGPT 24 U/L (16-61); Albumin, Serum 3.8 g/dL (3.2-5.0); Alkaline Phosphatase 120 U/L (45-117); Anion Gap 17 (5-15); BUN 15 mg/dL (7-18); BUN/Creat Ratio 9.6 RATIO (10-20); Calcium,Total 8.2 mg/dL (8.5-10.1); Chloride 100 mmol/L (98-107); Creatinine, Serum 1.57 mg/dL (0.70-1.30); EST Glomerular Filtration Rate 47 mL/min (>60); Est Glom Filt Rate - Afr Amer 56 mL/min (>60); Estimated Creatinine Clearance 44.56 ml/min; Globulin 4.4 g/dL (2.2-4.2); Glucose 221 mg/dL (74-106); Potassium 3.9 mmol/L (3.5-5.1); Protein, Total 8.2 g/dL (6.4-8.2); Sodium Level 135 mmol/L (136-145)
[2018-12-31 12:32] LABS: Absolute Lymphocyte Count 4.33 X10^3/ul (0.83-4.51); Absolute Neutrophil Count 6.4 X10^3/uL (2.0-7.7); Basophil# 0.02 X10^3/uL; Basophil% 0.1 % (0-1); Eosinophil# 0.15 X10^3/uL; Eosinophils% 1.1 % (0-5); Hematocrit 50.4 % (40-54); Hemoglobin 16.5 g/dl (13.0-16.5); Lymphocyte # 4.33 X10^3/ul (4.0); Lymphocyte % 32.1 % (19-41); Mean Corp Hgb Conc 32.7 g/gl (32-36); Mean Corpuscular Hgb 32.7 pg (27.0-32.0); Mean Corpuscular Volume 99.8 fL (80-94); Mean Platelet Vol. 10.2 fl (6.2-12.0); Monocyte# 2.37 X10^3/uL; Monocyte% 17.6 % (0-10); Neutrophil # 6.41 X10^3/uL (2.7-7.7); Neutrophil % 47.6 % (47-70); Platelet Count 250 K/mm3 (150-450); RBC Distribution Width CV 13.8 % (11.6-14.6); RBC Distribution Width SD 50.6 fl (35.1-43.9); Red Blood Count 5.05 M/mm3 (4.6-6.2); White Blood Count 13.5 K/mm3 (4.4-11.0)
[2018-12-31 12:34] LABS: Differential Indicated SCAN CRITERIA MET; POSITIVE COUNT NO; POSITIVE DIFFERENTIAL YES; POSITIVE MORPHOLOGY YES
[2018-12-31 12:38] LABS: Phenytoin (Dilantin) Level 10.6 mL (10.0-20.0)
[2018-12-31 12:50] LABS: Lactic Acid 14.8 mmol/L (0.4-2.0)
[2018-12-31] MEDS: Acetaminophen 650 MG Suppository RECTAL (12:55)
[2018-12-31 12:58] LABS: Atypical Lymphocyte RARE %; Differential Comment SCANNED
[2018-12-31] MEDS: 0.9% Normal Saline 1,000 ML 999 ML IV ×3 (13:24)
[2018-12-31 13:31] LABS: Allen Test POS; Base Excess -4 mmol/L (-2 to +2); Bicarbonate 24.8 mmol/L (22-26); Blood Gas Specimen Type ART; O2 Delivery Device Nasal Can; PO2 104 mmHG (75-100); SITE R Radial; SO2 96 % (95-99); Time Given 1310; Total Carbon Dioxide 27 mmol/L; pCO2 69.2 mmHg (35-45); pH 7.16 (7.35-7.45)
--- NOTE | 2018-12-31 13:31 | CPS ---
Critical values on ABG given to Dr. Aguilar at 1329.
[2018-12-31 13:36] LABS: Mucous, Urine 0 SEEN /hpf (<or=2+)
[2018-12-31 13:44] LABS: Color, Urine Yellow (Yellow); Glucose, Dipstick Normal (Normal); Ketone-Dipstick 5 mg/dl (Negative); Leukocyte Esterase-Dipstick 500 /ul (Negative); Nitrite-Dipstick Positive (Negative); Occult Blood-Urine 250 /ul (Negative); Protein-Dipstick 100 mg/dl (Negative); Specific Gravity, Urine 1.025 (1.002-1.030); Urine Bilirubin Dipstick Negative (Negative); Urine Clarity Cloudy (Clear); Urine Urobilinogen Normal (Normal)
[2018-12-31 13:53] LABS: Bacteria 2+ /hpf (None Seen); Hyaline Cast 5-10 SEEN /lpf (0-5); Red Blood Cells-Urine 10-25 SEEN /hpf (0-5); Squamous Epithelial Cells - UA 0-5 SEEN /hpf (0-5); White Blood Cells 25-50 SEEN /hpf (0-5)
[2018-12-31 13:54] LABS: Amorphous Sediment 1+; Coarse Granular Cast 5-10 SEEN /lpf (0-5 /lpf)
--- NOTE | 2018-12-31 14:21 | CT_ITS ---
STUDY: CT BRAIN WITHOUT CONTRAST REASON FOR EXAM: Male, 73 years old. SEZIURES- HX-EPILEPSY, MRDD, WIRE CHIEF SHUNT RADIATION DOSAGE (If Supplied By Facility): CTDIvol = ( 44.99 ) mGy, DLP = ( 812.98 ) mGycm TECHNIQUE: Transaxial CT imaging of the brain was performed without administration of intravenous contrast material. Individualized dose optimization techniques were used for this CT. COMPARISON: 02/02/2018 FINDINGS: Normal soft tissue structures. Normal calvarium. A right ventricular shunt is seen in good position. There is disproportionate enlargement of the lateral and third ventricles, as compared to the extra-axial spaces. The findings suggest normal pressure hydrocephalus (NPH). There are areas of decreased attenuation within the white matter tracts of the supratentorial brain, consistent with microvascular disease changes. Normal basal ganglia and thalami. Normal brainstem. Normal cerebellum. There is no intracranial hemorrhage. There are no findings of an acute ischemic infarction. Normal visualized paranasal sinuses. CT/Brain/Head without Contrast IMPRESSION: Chronic involutional changes of the brain. There is disproportionate enlargement of the lateral and third ventricles, as compared to the extra-axial spaces. The findings suggest normal pressure hydrocephalus (NPH). There has been significant change since 02/02/2018. Electronically Signed: Jose Eduardo Grullon, at 15:22 EDT Tel , Service support ,
[2018-12-31] MEDS: LORazepam 2 MG/ML Syringe 1 MG IV (14:58)
[2018-12-31 15:28] LABS: Carbamazepine (Tegretol) 1.6 ug/mL (4.0-12.0)
--- NOTE | 2018-12-31 15:43 | NURSING ---
DR SHERMAN FOR DR ELAINE
[2018-12-31 16:04] LABS: Reflex Lactate? Y
--- NOTE | 2018-12-31 16:16 | NURSING ---
PCU SEPSIS, SEIZURES ACACIAS
--- NOTE | 2018-12-31 16:22 | ED.DCSUM_ITS ---
- ER Visit Summary Date of Service: 12/31/18 Chief Complaint: Seizure History of Present Illness: The patient is a 73 M who is from nursing facility. He has mental retardation and epilepsy. He has a chronic indwelling Champagne. He takes Tegretol and Dilantin for seizures. Reportedly he had one seizure this morning and EMS was called. He had 3 more seizures for them and was given Ativan. Was noted that he was febrile. Patient has had seizures with fevers in the past and on a lot of his blood and urine cultures she has grown out Proteus as well as MRSA. Overall history is very limited as the patient is nonverbal currently as his review of systems. Physical Examination: Febrile 103.1 tachycardic 136 respiratory rate is 36 with pulse ox of 93% on 6 L blood pressure 129/65. Gen: Well-nourished well-developed obese Head: Normocephalic atraumatic Eyes: Dilated sluggish pupils from 6-4 EOMI ENT: TMs clear no rhinorrhea moist mucous membranes Neck: Supple no lymphadenopathy no JVD nontender CVS: Regular rate tachycardic rhythm no murmurs normal S1-S2 Respiratory: No distress clear to auscultation bilaterally chest nontender Abdomen: Soft nontender nondistended normal bowel sounds no masses suprapubic catheter site without complication. : Patient has excoriation of the skin and dried feces on him. Extremity: Nontender no deformities Skin: Normal color no rash Neuro: Unresponsive to pain. Emergency Department Course and Treatment: Patient received IV fluids and rectal Tylenol. He received a total of 3 L of IV fluid boluses and an additional 500 cc of normal saline with antibiotics. After blood cultures she received Rocephin and vancomycin should cover the common Proteus and vancomycin that he has had several times before. Chest x-ray negative for infiltrate. Influenza negative. Urinalysis appears to be the source of infection. Lactic acid is significantly elevated at 14.8. I suspect that this is more a function of his seizure activity then of sepsis. There is probably a degree of sepsis contributing to it but the majority should be clearing with fluids from the seizure. His head CT came back with no acute. There was concern that the patient was having a seizure and CT. There was very minimal at anything and he received a milligram of Ativan. He was also given additional gram of Dilantin because his Dilantin level is 10.6. Tegretol level came back also low at 1.6. He is a DNR Comfort Care. Plan will be for admission to PCU. Impression: 1. UTI 2. Sepsis 3. Status epilepticus 4. Critical care time 35 minutes This note was generated with [employer] dictation software. It may contain incorrect words, spelling, and punctuation that were not noted in review of the chart prior to signing ED Disposition - Plan for ED Patient:
--- NOTE | 2018-12-31 16:38 | CASEMGMT ---
Attempt to assess patient, however nobody at bedside and patient sleeping, Here for Seizures- sent from [facility]. Sherri Fontaine RNCM
[2018-12-31 17:03] LABS: Lactic Acid 1.4 mmol/L (0.4-2.0)
--- NOTE | 2018-12-31 17:59 | HP.PCM_ITS ---
<Rita Uribe - Last Filed: 12/31/18 18:12> Problem List (1) Sepsis Status: Acute (2) Thrombocytopenia Status: Resolved (3) Bacteremia due to Gram-negative bacteria Status: Resolved (4) UTI (urinary tract infection) Status: Acute (5) Epilepsy Status: Chronic (6) Urethral trauma Status: Resolved Comment: kevin trauma from cath change in skilled nursing. (7) Elevated PSA Status: Chronic (8) Macrocytic anemia Status: Chronic (9) Chronic indwelling Kevin catheter Status: Chronic (10) Colonization status Status: Chronic (11) BPH with urinary obstruction Status: Chronic (12) Mental retardation Status: Chronic (13) Peripheral vascular disease Status: Chronic (14) Major depression Status: Chronic History of Present Illness Date of Admission: 12/31/18 Chief Complaint: Breakthrough seizure, fever. The patient is a 73 year old M who presents to the emergency room from [facility] due to breakthrough seizure and fever. He has a history of seizures with fevers in the past. Patient is nonverbal during assessment, lethargic. He has a documented history of recurrent UTI secondary to chronic indwelling Kevin catheter. No family present on admission. Per skilled nursing paperwork, patient is DNR CC. His documented medical history includes mental retardation, depressi on, seizure disorder, peripheral vascular disease, BPH. Past Medical History Past Medical History (Chronic Problems): Chronic Problems Epilepsy (Chronic) Elevated PSA (Chronic) Macrocytic anemia (Chronic) Chronic indwelling Kevin catheter (Chronic) Colonization status (Chronic) BPH with urinary obstruction (Chronic) Mental retardation (Chronic) Peripheral vascular disease (Chronic) Major depression (Chronic) Allergies No Known Allergies Allergy (Verified 03/31/18 11:51) Home Medications: Ambulatory Orders Medication Instructions Recorded Amino Acids/Protein Hydrolys 30 ml PO DAILY 03/31/18 [Pro-Stat Awc Liquid] Phenytoin Na [Dilantin] 200 mg PO BID 03/31/18 Polyethylene Glycol 3350 [Miralax] 17 gm PO QHS 03/31/18 Sertraline HCl [Zoloft] 50 mg PO DAILY 03/31/18 Tamsulosin HCl [Flomax] 0.4 mg PO DAILY 03/31/18 Aspirin E.C. [Ecotrin] 81 mg PO DAILY@0800 12/31/18 Bisacodyl [Dulcolax] 10 mg RECTAL QODAY 12/31/18 Carbamazepine [Carbamazepine ER] 400 mg PO QHS 12/31/18 Loratadine 10 mg PO DAILY 12/31/18 Multivitamin with Minerals 1 tab PO DAILY 12/31/18 [Multiple Vitamin] Sennosides/Docusate Sodium [Senna 2 tab PO QHS 12/31/18 Plus Tablet] Surgical History: noncontributory Psychiatric History: Depression Lives: [facility] Smoking Status: Never smoker Alcohol: None Drugs: None - *Family History Maternal History Items: - - Unable to obtain because of patient's mental status Paternal History Items: - - Unable to obtain due to patient's mental status. Review of Systems Unable to obtain accurate/complete ROS d/t: Patient nonverbal, lethargic. Unable to obtain ROS. VTE Information - Inpt Only VTE Present on Admission: No VTE Mechan Device Prophylaxis: None VTE Pharm Prophylaxis ordered?: Yes - Physical Exam General: No apparent distress, Lethargic HEENT: Atraumatic, PERRLA, EOMI, Normocephalic Oral: Dry Mucosa Neck: Supple, No JVD, Negative Carotid Bruits Lungs: Clear to auscultation, Diminished Cardiovascular: Regular rate, Regular Rhythm, Normal S1, Normal S2, No murmurs Abdomen: Bowel Sounds Present, Soft, Non Tender, Non-Distended, Obese, - - Suprapubic catheter intact Extremities: No clubbing, No cyanosis, Edema - Nonpitting bilateral lower extremities. Skin: No rashes, No breakdown Musculoskeletal: No Tenderness to Palpation of Joints or Extremities Neurological: Cranial nerves II-XII grossly intact Psych/Mental Status: - - Unable to assess Vital Signs Temp Pulse Resp BP Pulse Ox 99.6 F H 91 24 H 134/74 H 96 12/31/18 17:46 12/31/18 17:46 12/31/18 17:46 12/31/18 17:46 12/31/18 17:46 Oxygen Flow Rate (L/min) 3.5 Oxygen Delivery Method Nasal Cannula Weight: 246 lb 14.684 oz Body Mass Index (BMI) 35.4 Finger Stick Blood Glucose 178 Microbiology Past 72 Hours 12/31/18 12:30 Influenza Types A,B Direct FA (WILBER) - Final Mucosa - Nasopharyngeal Laboratory Tests Past 24 Hrs 12/31/18 12/31/18 12/31/18 11:53 11:53 11:53 WBC 13.5 H RBC 5.05 Hgb 16.5 Hct 50.4 MCV 99.8 H MCH 32.7 H MCHC 32.7 RDW 13.8 RDW Differential 50.6 H Plt Count 250 MPV 10.2 Immature Gran % (Auto) 1.500 H Neut % (Auto) 47.6 Lymph % (Auto) 32.1 Crittenden % (Auto) 17.6 H Eos % (Auto) 1.1 Baso % (Auto) 0.1 Absolute Neuts (auto) 6.4 Absolute Lymphs (auto) 4.33 Total Counted Not Reportable Differential Comment SCANNED Diff Path Review May foll Atypical Lymphocytes RARE PT 14.9 INR 1.2 APTT 32.8 Specimen Type Sample Site pH Bicarbonate Actual POC Total CO2 Base Excess O2 Saturation ABG pCO2 ABG pO2 Eusebio Test O2 Delivery Device Liter Flow Blood Gas Notified Whom Blood Gas Notified Time Sodium 135 L Potassium 3.9 Chloride 100 Carbon Dioxide 18.0 L Anion Gap 17 H BUN 15 Creatinine 1.57 H Estim Creat Clear Calc 44.56 Est GFR (MDRD) Af Amer 56 L Est GFR (MDRD) Non-Af 47 L BUN/Creatinine Ratio 9.6 L Glucose 221 H Lactic Acid Calcium 8.2 L Total Bilirubin 0.30 AST 25 ALT 24 Alkaline Phosphatase 120 H Troponin I < 0.015 Total Protein 8.2 Albumin 3.8 Globulin 4.4 H Albumin/Globulin Ratio 0.9 Urine Color Urine Clarity Urine pH Ur Specific Hazel Urine Protein Urine Glucose (UA) Urine Ketones Urine Occult Blood Urine Nitrite Urine Bilirubin Urine Urobilinogen Ur Leukocyte Esterase Urine RBC Urine WBC Ur Squamous Epith Cells Amorphous Sediment Urine Bacteria Hyaline Casts Coarse Granular Casts Urine Mucus Phenytoin Carbamazepine 12/31/18 12/31/18 12/31/18 11:53 11:53 11:55 WBC RBC Hgb Hct MCV MCH MCHC RDW RDW Differential Plt Count MPV Immature Gran % (Auto) Neut % (Auto) Lymph % (Auto) Crittenden % (Auto) Eos % (Auto) Baso % (Auto) Absolute Neuts (auto) Absolute Lymphs (auto) Total Counted Differential Comment Diff Path Review Atypical Lymphocytes PT INR APTT Specimen Type Sample Site pH Bicarbonate Actual POC Total CO2 Base Excess O2 Saturation ABG pCO2 ABG pO2 Eusebio Test O2 Delivery Device Liter Flow Blood Gas Notified Whom Blood Gas Notified Time Sodium Potassium Chloride Carbon Dioxide Anion Gap BUN Creatinine Estim Creat Clear Calc Est GFR (MDRD) Af Amer Est GFR (MDRD) Non-Af BUN/Creatinine Ratio Glucose Lactic Acid 14.8 H* Calcium Total Bilirubin AST ALT Alkaline Phosphatase Troponin I Total Protein Albumin Globulin Albumin/Globulin Ratio Urine Color Urine Clarity Urine pH Ur Specific Hazel Urine Protein Urine Glucose (UA) Urine Ketones Urine Occult Blood Urine Nitrite Urine Bilirubin Urine Urobilinogen Ur Leukocyte Esterase Urine RBC Urine WBC Ur Squamous Epith Cells Amorphous Sediment Urine Bacteria Hyaline Casts Coarse Granular Casts Urine Mucus Phenytoin 10.6 Carbamazepine 1.6 L 12/31/18 12/31/18 12/31/18 13:00 13:20 16:35 WBC RBC Hgb Hct MCV MCH MCHC RDW RDW Differential Plt Count MPV Immature Gran % (Auto) Neut % (Auto) Lymph % (Auto) Crittenden % (Auto) Eos % (Auto) Baso % (Auto) Absolute Neuts (auto) Absolute Lymphs (auto) Total Counted Differential Comment Diff Path Review Atypical Lymphocytes PT INR APTT Specimen Type ART Sample Site R Radial pH 7.16 L* Bicarbonate Actual 24.8 POC Total CO2 27 Base Excess -4 L O2 Saturation 96 ABG pCO2 69.2 H* ABG pO2 104 H Eusebio Test POS O2 Delivery Device Nasal Can Liter Flow 6.0 Blood Gas Notified Whom ED MD Blood Gas Notified Time 1310 Sodium Potassium Chloride Carbon Dioxide Anion Gap BUN Creatinine Estim Creat Clear Calc Est GFR (MDRD) Af Amer Est GFR (MDRD) Non-Af BUN/Creatinine Ratio Glucose Lactic Acid 1.4 Calcium Total Bilirubin AST ALT Alkaline Phosphatase Troponin I Total Protein Albumin Globulin Albumin/Globulin Ratio Urine Color Yellow Urine Clarity Cloudy Urine pH 6.0 Ur Specific Hazel 1.025 Urine Protein 100 H Urine Glucose (UA) Normal Urine Ketones 5 H Urine Occult Blood 250 H Urine Nitrite Positive H Urine Bilirubin Negative Urine Urobilinogen Normal Ur Leukocyte Esterase 500 H Urine RBC 10-25 SEEN Urine WBC 25-50 SEEN Ur Squamous Epith Cells 0-5 SEEN Amorphous Sediment 1+ Urine Bacteria 2+ Hyaline Casts 5-10 SEEN Coarse Granular Casts 5-10 SEEN Urine Mucus 0 SEEN Phenytoin Carbamazepine Assessment/Plan All Active Problems Sepsis (Acute) UTI (urinary tract infection) (Acute) ASA (acute kidney injury) (Resolved) Acute hypernatremia (Resolved) Bacteremia due to Gram-negative bacteria (Resolved) Prostatitis, acute (Resolved) Thrombocytopenia (Resolved) Urethral trauma (Resolved) 1. Severe sepsis secondary to UTI, chronic suprapubic catheter-urinalysis positive. Urine and blood cultures pending. Continue IV Rocephin and IV vancomycin. Previous urine cultures positive for MRSA, Proteus. Influenza negative. Chest x-ray negative. Lactic acid 14.8 on admission, temp 103.1, heart rate 139, WBC 13.5. IV fluids. Repeat lactic acid 1.4. 2. Acute metabolic encephalopathy-secondary to #1. Continue to treat underlying process. Brain CT negative for acute process. 3. Breakthrough seizure, suspect secondary to fever-carbamazepine level low. Patient received IV phenytoin and Ativan in ER. Seizure precautions. Continue home Dilantin and carbamazepine regimen. 4. BPH with chronic suprapubic catheter-continue Flomax regimen. Will attempt to find out when catheter was changed out last. 5. MRDD- resides at SNF. Code status: DNR CC DVT prophylaxis-Lovenox This patient was seen by TESSA Galindo under the supervision of Dr. López. <Ortiz López F - Last Filed: 12/31/18 18:55> History of Present Illness The patient is a 73 year old M [] Past Medical History Allergies No Known Allergies Allergy (Verified 03/31/18 11:51) - Physical Exam Vital Signs Temp Pulse Resp BP Pulse Ox 99.6 F H 91 24 H 134/74 H 96 12/31/18 17:46 12/31/18 17:46 12/31/18 17:46 12/31/18 17:46 12/31/18 18:00 Oxygen Flow Rate (L/min) 3.5 Oxygen Delivery Method Nasal Cannula Weight: 246 lb 14.684 oz Body Mass Index (BMI) 35.4 Finger Stick Blood Glucose 178 Intake and Output for Last 24 Hours 12/29/18 12/30/18 12/31/18 23:59 23:59 23:59 Intake Total 763 / 763 Output Total 850 / 850 Balance -87 / -87 Microbiology Past 72 Hours 12/31/18 12:30 Influenza Types A,B Direct FA (WILBER) - Final Mucosa - Nasopharyngeal Laboratory Tests Past 24 Hrs 12/31/18 12/31/1812/31/19 11:53 11:53 11:53 WBC 13.5 H RBC 5.05 Hgb 16.5 Hct 50.4 MCV 99.8 H MCH 32.7 H MCHC 32.7 RDW 13.8 RDW Differential 50.6 H Plt Count 250 MPV 10.2 Immature Gran % (Auto) 1.500 H Neut % (Auto) 47.6 Lymph % (Auto) 32.1 Crittenden % (Auto) 17.6 H Eos % (Auto) 1.1 Baso % (Auto) 0.1 Absolute Neuts (auto) 6.4 Absolute Lymphs (auto) 4.33 Total Counted Not Reportable Differential Comment SCANNED Diff Path Review May foll Atypical Lymphocytes RARE PT 14.9 INR 1.2 APTT 32.8 Specimen Type Sample Site pH Bicarbonate Actual POC Total CO2 Base Excess O2 Saturation ABG pCO2 ABG pO2 Eusebio Test O2 Delivery Device Liter Flow Blood Gas Notified Whom Blood Gas Notified Time Sodium 135 L Potassium 3.9 Chloride 100 Carbon Dioxide 18.0 L Anion Gap 17 H BUN 15 Creatinine 1.57 H Estim Creat Clear Calc 44.56 Est GFR (MDRD) Af Amer 56 L Est GFR (MDRD) Non-Af 47 L BUN/Creatinine Ratio 9.6 L Glucose 221 H Lactic Acid Calcium 8.2 L Total Bilirubin 0.30 AST 25 ALT 24 Alkaline Phosphatase 120 H Troponin I < 0.015 Total Protein 8.2 Albumin 3.8 Globulin 4.4 H Albumin/Globulin Ratio 0.9 Urine Color Urine Clarity Urine pH Ur Specific Hazel Urine Protein Urine Glucose (UA) Urine Ketones Urine Occult Blood Urine Nitrite Urine Bilirubin Urine Urobilinogen Ur Leukocyte Esterase Urine RBC Urine WBC Ur Squamous Epith Cells Amorphous Sediment Urine Bacteria Hyaline Casts Coarse Granular Casts Urine Mucus Phenytoin Carbamazepine 12/31/18 12/31/18 12/31/18 11:53 11:53 11:55 WBC RBC Hgb Hct MCV MCH MCHC RDW RDW Differential Plt Count MPV Immature Gran % (Auto) Neut % (Auto) Lymph % (Auto) Crittenden % (Auto) Eos % (Auto) Baso % (Auto) Absolute Neuts (auto) Absolute Lymphs (auto) Total Counted Differential Comment Diff Path Review Atypical Lymphocytes PT INR APTT Specimen Type Sample Site pH Bicarbonate Actual POC Total CO2 Base Excess O2 Saturation ABG pCO2 ABG pO2 Eusebio Test O2 Delivery Device Liter Flow Blood Gas Notified Whom Blood Gas Notified Time Sodium Potassium Chloride Carbon Dioxide Anion Gap BUN Creatinine Estim Creat Clear Calc Est GFR (MDRD) Af Amer Est GFR (MDRD) Non-Af BUN/Creatinine Ratio Glucose Lactic Acid 14.8 H* Calcium Total Bilirubin AST ALT Alkaline Phosphatase Troponin I Total Protein Albumin Globulin Albumin/Globulin Ratio Urine Color Urine Clarity Urine pH Ur Specific Hazel Urine Protein Urine Glucose (UA) Urine Ketones Urine Occult Blood Urine Nitrite Urine Bilirubin Urine Urobilinogen Ur Leukocyte Esterase Urine RBC Urine WBC Ur Squamous Epith Cells Amorphous Sediment Urine Bacteria Hyaline Casts Coarse Granular Casts Urine Mucus Phenytoin 10.6 Carbamazepine 1.6 L 12/31/18 12/31/18 12/31/18 13:00 13:20 16:35 WBC RBC Hgb Hct MCV MCH MCHC RDW RDW Differential Plt Count MPV Immature Gran % (Auto) Neut % (Auto) Lymph % (Auto) Crittenden % (Auto) Eos % (Auto) Baso % (Auto) Absolute Neuts (auto) Absolute Lymphs (auto) Total Counted Differential Comment Diff Path Review Atypical Lymphocytes PT INR APTT Specimen Type ART Sample Site R Radial pH 7.16 L* Bicarbonate Actual 24.8 POC Total CO2 27 Base Excess -4 L O2 Saturation 96 ABG pCO2 69.2 H* ABG pO2 104 H Eusebio Test POS O2 Delivery Device Nasal Can Liter Flow 6.0 Blood Gas Notified Whom ED MD Blood Gas Notified Time 1310 Sodium Potassium Chloride Carbon Dioxide Anion Gap BUN Creatinine Estim Creat Clear Calc Est GFR (MDRD) Af Amer Est GFR (MDRD) Non-Af BUN/Creatinine Ratio Glucose Lactic Acid 1.4 Calcium Total Bilirubin AST ALT Alkaline Phosphatase Troponin I Total Protein Albumin Globulin Albumin/Globulin Ratio Urine Color Yellow Urine Clarity Cloudy Urine pH 6.0 Ur Specific Hazel 1.025 Urine Protein 100 H Urine Glucose (UA) Normal Urine Ketones 5 H Urine Occult Blood 250 H Urine Nitrite Positive H Urine Bilirubin Negative Urine Urobilinogen Normal Ur Leukocyte Esterase 500 H Urine RBC 10-25 SEEN Urine WBC 25-50 SEEN Ur Squamous Epith Cells 0-5 SEEN Amorphous Sediment 1+ Urine Bacteria 2+ Hyaline Casts 5-10 SEEN Coarse Granular Casts 5-10 SEEN Urine Mucus 0 SEEN Phenytoin Carbamazepine Code Visit Addendum: Dr. López I personally examined the patient and reviewed the chart. I agree with the above. 73-year-old male with a history of MR, and seizure disorder presents from the skilled nursing with what appears to be sepsis secondary to urinary tract infection. He also had multiple seizures, which occurs whenever he has a fever. Of note his Tegretol level in the ER was low and he was given an extra dose of Dilantin IV. He is on Tegretol and Dilantin p.o. and if he is unable to take a p.o. can convert medications to IV or start Keppra while he is ill. We will continue with vancomycin and Rocephin given his positive urine cultures of MRSA and Proteus. He is DNR CC which is why he is not in the ICU, will follow up lactate had normalized to 1.4, and in discussion with his POA they do not want any aggressive measures and will discuss with the family about proceeding with hospice depending on his symptomatic improvement. Inpatient E&M: [id number] [facility] Hosp L3
[2018-12-31] MEDS: 0.9% Normal Saline 1,000 ML 150 ML IV (18:00)
--- NOTE | 2018-12-31 20:29 | PCM.RX.CS ---
Consult Pharmacy has been consulted to manage selected antiobiotic: Vancomycin Type of Consult: New start Suspected Infection: Sepsis Prior Doses of Antibiotics Received/Current Regimen: VANCOMYCIN 1750MG IV X1 IN ED 12/31/18 @1502 Labs: Sodium 135 mmol/L (136-145) L 12/31/18 11:53 Potassium 3.9 mmol/L (3.5-5.1) 12/31/18 11:53 Chloride 100 mmol/L (98-107) 12/31/18 11:53 Carbon Dioxide 18.0 mmol/L (21.0-32.0) L 12/31/18 11:53 Anion Gap 17 (5-15) H 12/31/18 11:53 BUN 15 mg/dL (7-18) 12/31/18 11:53 Creatinine 1.57 mg/dL (0.70-1.30) H 12/31/18 11:53 Est GFR (MDRD) Af Amer 56 mL/min (>60) L 12/31/18 11:53 Est GFR (MDRD) Non-Af 47 mL/min (>60) L 12/31/18 11:53 BUN/Creatinine Ratio 9.6 RATIO (10-20) L 12/31/18 11:53 Glucose 221 mg/dL (74-106) H 12/31/18 11:53 Microbiology: Microbiology 12/31/18 12:30 Mucosa - Nasopharyngeal Influenza Types A,B Direct FA (WILBER) - Final Weight used for dosin kg Estimated Creatinine Clearance: 44 ML/MIN Goal Trough: 15-20 mcg/mL Pharmacy Plan for Drug Dosing: PLAN/RECOMMENDATIONS 1. Vancomycin 1000mg IV Q12hrs to start 01/01/19 @0300 2. Trough scheduled 01/02/19 @0230 (prior to 4th total dose per protocol) 3. Pharmacy Service will continue to monitor and adjust dosing as required.
[2018-12-31] MEDS: Phenytoin Na 100 MG/2 ML Vial 200 MG IV (22:28)
[2018-12-31] MEDS: Ondansetron 4 MG/2 ML Vial IV (22:45)
[2019-01-01] VITALS (11 sets, daily range): BP systolic 112–134; BP diastolic 59–87; PULSE 81–95; RESP 16–20; TEMP 37–37.4; O2SAT 94–97
[2019-01-01] MEDS: 0.9% Normal Saline 1,000 ML 100 ML IV ×2 (02:23→13:23)
[2019-01-01] MEDS: Sertraline 50 MG Tablet PO (08:55)
[2019-01-01] MEDS: Aspirin E.C. 81 MG Tablet PO (08:55)
[2019-01-01] MEDS: Bisacodyl 10 MG Suppository RECTAL (08:55)
[2019-01-01] MEDS: Loratadine 10 MG Tablet PO (08:56)
[2019-01-01] MEDS: Tamsulosin HCl 0.4 MG Capsule PO (08:56)
[2019-01-01] MEDS: Enoxaparin 40 MG/0.4 ML Syringe SC (08:56)
[2019-01-01] MEDS: Phenytoin Na 100 MG Capsule 200 MG PO (10:15)
[2019-01-01] MEDS: Ondansetron 4 MG/2 ML Vial IV (10:42)
--- NOTE | 2019-01-01 10:59 | CASEMGMT ---
Patient is from [facility]. SW faxed updates to [facility]. JONN called and talked with Kay at [facility]. SW asked if patient had a guardian and he does not. SW to follow for d/c back to [facility] when ready. Teri LUCAS ACCOUNTS RECEIVABLE SUPERVISOR
[2019-01-01 14:10] LABS: Pathologist Review Reviewed
[2019-01-01] MEDS: 0.9% Saline Lock 10 ML Syringe IV (14:50)
[2019-01-01] MEDS: Phenytoin Na 100 MG/2 ML Vial 200 MG IV ×2 (14:51→21:36)
--- NOTE | 2019-01-01 14:53 | CHAPLAIN ---
Type of Pastoral Visit _x__ Initial Visit ___ Follow-up Visit ___ On-call Visit ___ General Patient Visit ___ Spiritual Assessment ___ Family Conference ___ Bereavement ___ Rapid Response ___ Code Blue ___ Other (describe below) Pastoral Care Referral From ___ Patient _x__ Family ___ Nurse ___ Physician ___ System Controller ___ Reverse Unit Operator Fisherman ___ Other (describe below) Sacrament/Intervention ___ Active listening ___ Anointing ___ Adventist ___ Bereavement ___ Communion ___ Hanna exploration ___ ___ Life review _x__ Prayer ___ Reconciliation ___ Sacrament of Sick _x__ Supportive presence ___ Wedding ___ Other (describe below) Pastoral Comments
--- NOTE | 2019-01-01 15:38 | PN_ITS ---
<Rita Uribe - Last Filed: 01/01/19 15:39> Subjective: Patient seen and examined. More alert today. States he is sick. Episode of emesis this morning reported by RN. Patient does not verbalize other complaints. - Physical Exam General: Alert, Cooperative, No apparent distress HEENT: Atraumatic, PERRLA, EOMI, Normocephalic Oral: Dry Mucosa Neck: Supple, No JVD, Negative Carotid Bruits Lungs: Clear to auscultation, Diminished Cardiovascular: Regular rate, Regular Rhythm, Normal S1, Normal S2, No murmurs Abdomen: Bowel Sounds Present, Soft, Non Tender, Non-Distended, Obese, - - Suprapubic catheter intact Extremities: No clubbing, No cyanosis, No edema, Capillary Refill Less than 3 Seconds Skin: No rashes, No breakdown Musculoskeletal: No Tenderness to Palpation of Joints or Extremities Neurological: Cranial nerves II-XII grossly intact Psych/Mental Status: Normal Affect Vital Signs Temp Pulse Resp BP Pulse Ox 98.7 F 81 16 112/59 L 95 01/01/19 15:02 01/01/19 15:02 01/01/19 15:02 01/01/19 15:02 01/01/19 15:02 Oxygen Flow Rate (L/min) 2 Oxygen Delivery Method Nasal Cannula Weight: 246 lb 14.684 oz Body Mass Index (BMI) 35.4 Finger Stick Blood Glucose 178 Intake and Output for Last 24 Hours 12/30/18 12/31/18 01/01/19 23:59 23:59 23:59 Intake Total 763 / 763 2591 / 2591 Output Total 850 / 850 1425 / 1425 Balance -87 / -87 1166 / 1166 Microbiology Past 72 Hours 12/31/18 13:00 Urine Culture - Preliminary Urine, Catheterized Gram negative nerissa 12/31/18 12:30 Influenza Types A,B Direct FA (WILBER) - Final Mucosa - Nasopharyngeal Laboratory Tests Past 24 Hrs 12/31/18 12/31/18 11:53 16:35 Diff Path Review Reviewed Lactic Acid 1.4 Medical Necessity - Tobacco Use Smoking Status: Never smoker Assessment/Plan All Active Problems Sepsis (Acute) UTI (urinary tract infection) (Acute) ASA (acute kidney injury) (Resolved) Acute hypernatremia (Resolved) Bacteremia due to Gram-negative bacteria (Resolved) Prostatitis, acute (Resolved) Thrombocytopenia (Resolved) Urethral trauma (Resolved) 1. Severe sepsis secondary to UTI as a result of chronic suprapubic catheter- urinalysis positive. Urine and blood cultures pending. Continue IV Rocephin and IV vancomycin. Previous urine cultures positive for MRSA, Proteus. Influenza negative. Chest x-ray negative. Lactic acid 14.8 on admission, temp 103.1, heart rate 139, WBC 13.5. Repeat lactic acid 1.4. Suspect lactic acidosis secondary to seizure as opposed to infection. Preliminary urine culture showing gram-negative nerissa. 2. Acute metabolic encephalopathy-secondary to #1. Continue to treat underlying process. Brain CT negative for acute process. Mental status improved. 3. Breakthrough seizure, suspect secondary to fever-carbamazepine level low. Seizure precautions. Continue home Dilantin and carbamazepine regimen. 4. Acute hypoxic and hypercapnic respiratory failure-suspect secondary to lethargy on admission as a result of #1/#3. Initially requiring nonrebreather and high flow oxygen. Oxygen now stable on 2 L nasal cannula. Wean oxygen as tolerated to maintain O2 at or above 90%. Chest x-ray on admission without ac toni process. 5. BPH with chronic suprapubic catheter-continue Flomax regimen. 6. MRDD- resides at [facility]F. Code status: DNR CC DVT prophylaxis-Lovenox ky This patient was seen by TESSA Galindo under the supervision of Dr. Moore. <Eden Moore - Last Filed: 01/01/19 20:11> - Physical Exam Vital Signs Temp Pulse Resp BP Pulse Ox 99.3 F H 82 18 123/87 H 97 01/01/19 19:34 01/01/19 19:34 01/01/19 19:34 01/01/19 19:34 01/01/19 19:34 Oxygen Flow Rate (L/min) 2 Oxygen Delivery Method Nasal Cannula Weight: 112 kg Body Mass Index (BMI) 35.4 Finger Stick Blood Glucose 178 Intake and Output for Last 24 Hours 12/30/18 12/31/18 01/01/19 23:59 23:59 23:59 Intake Total 763 / 763 3270 / 3270 Output Total 850 / 850 1625 / 1625 Balance -87 / -87 1645 / 1645 Microbiology Past 72 Hours 12/31/18 13:00 Urine Culture - Preliminary Urine, Catheterized Gram negative nerissa 12/31/18 12:30 Influenza Types A,B Direct FA (WILBER) - Final Mucosa - Nasopharyngeal Laboratory Tests Past 24 Hrs 12/31/18 11:53 Diff Path Review Reviewed Assessment/Plan Patient was seen and examined independently of Rita Uribe NP. I agree with her above documentation 73 y/o with PMHx of seizure disorder, MRDD admitted with breakthrough seizure and fever. He has been managed as severe sepsis. Patient was seen and examined. Denied any complains. Speaks very slowly. Appears confused Off Bipap. Had a couple of episodes of emesis after taking medications. Denies any complains at the time of exam. Vitals are stable. Physical Exam General: Alert, Cooperative, No apparent distress, obese HEENT: Atraumatic, PERRLA, EOMI, Normocephalic Oral: Dry Mucosa Neck: Supple, No JVD, Negative Carotid Bruits Lungs: Clear to auscultation, Diminished Cardiovascular: Regular rate, Regular Rhythm, Normal S1, Normal S2, No murmurs Abdomen: Bowel Sounds Present, Soft, Non Tender, Non-Distended, Obese, - - Suprapubic catheter intact Extremities: No clubbing, No cyanosis, No edema, Capillary Refill Less than 3 Seconds Skin: No rashes, No breakdown Musculoskeletal: No Tenderness to Palpation of Joints or Extremities Neurological: Cranial nerves II-XII grossly intact Psych/Mental Status: Normal Affect A/p: 1. Severe sepsis secondary to acute complicated UTI 2. Acute complicated UTI secondary to underlying suprapubic catheter 3. Acute metabolic encephalopathy 4. Breakthrough seizure 5. Acute combined respiratory failure, improved, on 2L oxygen 6. BPH with chronic suprapubic catheter 7. MRDD Plan: Continue antibiotics, continue dilantin and carbamazepine Code Visit Inpatient E&M: 58241 Subs Hosp L2
[2019-01-01] MEDS: carBAMazepine 200 MG Tablet 400 MG PO (21:43)
[2019-01-01] MEDS: Senna/Docusate Sodium 1 Tablet 2 TABLET PO (21:45)
[2019-01-01] MEDS: Polyethylene Glycol 3350 17 GM PACKET PO (21:46)
[2019-01-02] VITALS (7 sets, daily range): BP systolic 123–131; BP diastolic 77–94; PULSE 77–89; RESP 18; TEMP 36.9–37.2; O2SAT 94–97
[2019-01-02] MEDS: 0.9% Normal Saline 1,000 ML 100 ML IV (00:56)
[2019-01-02 03:43] LABS: Vancomycin, Trough Level 6.8 ug/mL (5.0-15.0)
[2019-01-02 03:47] LABS: Anion Gap 7 (5-15); BUN 10 mg/dL (7-18); BUN/Creat Ratio 14.1 RATIO (10-20); Calcium,Total 6.8 mg/dL (8.5-10.1); Chloride 108 mmol/L (98-107); Creatinine, Serum 0.71 mg/dL (0.70-1.30); EST Glomerular Filtration Rate 116 mL/min (>60); Est Glom Filt Rate - Afr Amer 141 mL/min (>60); Estimated Creatinine Clearance 69.96 ml/min; Glucose 127 mg/dL (74-106); Potassium 4.3 mmol/L (3.5-5.1); Sodium Level 139 mmol/L (136-145)
[2019-01-02 03:53] LABS: Hematocrit 42.2 % (40-54); Hemoglobin 14.4 g/dl (13.0-16.5); Mean Corp Hgb Conc 34.1 g/gl (32-36); Mean Corpuscular Hgb 32.9 pg (27.0-32.0); Mean Corpuscular Volume 96.3 fL (80-94); Mean Platelet Vol. 10.2 fl (6.2-12.0); Platelet Count 139 K/mm3 (150-450); RBC Distribution Width CV 13.8 % (11.6-14.6); RBC Distribution Width SD 48.9 fl (35.1-43.9); Red Blood Count 4.38 M/mm3 (4.6-6.2); White Blood Count 6.2 K/mm3 (4.4-11.0)
[2019-01-02 03:57] LABS: Scan Indicated on CBC? Y/N NO
--- NOTE | 2019-01-02 03:57 | PCM.RX.CS ---
Consult Pharmacy has been consulted to manage selected antiobiotic: Vancomycin Type of Consult: Follow-up Suspected Infection: Sepsis Labs: Sodium 139 mmol/L (136-145) 01/02/19 02:55 Potassium 4.3 mmol/L (3.5-5.1) 01/02/19 02:55 Chloride 108 mmol/L (98-107) H 01/02/19 02:55 Carbon Dioxide 24.0 mmol/L (21.0-32.0) 01/02/19 02:55 Anion Gap 7 (5-15) 01/02/19 02:55 BUN 10 mg/dL (7-18) 01/02/19 02:55 Creatinine 0.71 mg/dL (0.70-1.30) 01/02/19 02:55 Est GFR (MDRD) Af Amer 141 mL/min (>60) 01/02/19 02:55 Est GFR (MDRD) Non-Af 116 mL/min (>60) 01/02/19 02:55 BUN/Creatinine Ratio 14.1 RATIO (10-20) 01/02/19 02:55 Glucose 127 mg/dL (74-106) H 01/02/19 02:55 Vancomycin Trough 6.8 ug/mL (5.0-15.0) 01/02/19 02:55 Microbiology: Microbiology 12/31/18 13:00 Urine, Catheterized Urine Culture - Preliminary Gram negative nerissa 12/31/18 12:30 Mucosa - Nasopharyngeal Influenza Types A,B Direct FA (WILBER) - Final Goal Trough: 15-20 mcg/mL Pharmacy Plan for Drug Dosing: Pharmacy Service will continue to monitor and adjust dosing as required. Medications Vancomycin HCl 1,000 mg/ (Sodium Chloride) 200 mls @ 200 mls/hr IV Q12H SHERWIN Last Admin: 01/01/19 14:50 Dose: 200 mls/hr Vancomycin HCl 2,000 mg/ (Sodium Chloride) 540 mls @ 250 mls/hr IV Q12H SHERWIN TROUGH 6.8 NEW DOSE 2000MG Q12H REPEAT TROUGH 01/04 @ 0300 Follow-Up Labs: Trough Vancomycin Labs to be done on [date and time ordered]: 01/04 @ 0300
[2019-01-02] MEDS: Loratadine 10 MG Tablet PO (08:30)
[2019-01-02] MEDS: Aspirin E.C. 81 MG Tablet PO (08:30)
[2019-01-02] MEDS: Sertraline 50 MG Tablet PO (08:30)
[2019-01-02] MEDS: Tamsulosin HCl 0.4 MG Capsule PO (08:30)
[2019-01-02] MEDS: Phenytoin Na 100 MG/2 ML Vial 200 MG IV (08:31)
[2019-01-02] MEDS: Enoxaparin 40 MG/0.4 ML Syringe SC (08:31)
--- NOTE | 2019-01-02 10:38 | PCM.DC.SUM ---
<Rita Uribe - Last Filed: 01/02/19 12:40> Discharge Date and Diagnosis Date of Admission: 12/31/18 Date of Discharge: 01/02/19 - Primary Discharge Diagnosis 1. Severe sepsis secondary to providencia rettgeri UTI and gram variable nerissa bacteremia as a result of chronic suprapubic catheter 2. Acute metabolic encephalopathy-secondary to #1. 3. Breakthrough seizure, suspect secondary to fever as a result of #1 4. Acute hypoxic and hypercapnic respiratory failure 5. BPH with chronic suprapubic catheter 6. MRDD - Secondary Discharge Diagnosis Chronic Problems Epilepsy (Chronic) Elevated PSA (Chronic) Macrocytic anemia (Chronic) Chronic indwelling Champagne catheter (Chronic) Colonization status (Chronic) BPH with urinary obstruction (Chronic) Mental retardation (Chronic) Peripheral vascular disease (Chronic) Major depression (Chronic) Hospital Course and Treatment Imaging Results: Diagnostic Data Chest X-Ray 12/31/18 12:25 IMPRESSION: Degenerative changes, as described above. No demonstrated acute cardiopulmonary process. Electronically Signed: Jose Eduardo Grullon, at 13:27 EDT Tel , Service support , Brain CT 12/31/18 14:21 IMPRESSION: Chronic involutional changes of the brain. There is disproportionate enlargement of the lateral and third ventricles, as compared to the extra-axial spaces. The findings suggest normal pressure hydrocephalus (NPH). There has been significant change since 02/02/2018. Electronically Signed: Jose Eduardo Grullon, at 15:22 EDT Tel , Service support , Operations: None Procedures: None Summary of Care Provided: The patient is a 73 year old M admitted 12/31/2018 due to breakthrough seizure and fever. 1. Severe sepsis secondary to providencia rettgeri UTI and gram variable nerissa bacteremia as a result of chronic suprapubic catheter-urinalysis positive. Urine culture with providencia rettgeri. Blood culture preliminary shows gram variable rods. Patient received IV Rocephin and IV vancomycin during admission. Previous urine cultures positive for MRSA, Proteus. Influenza negative. Chest x-ray negative. Lactic acid 14.8 on admission, temp 103.1, heart rate 139, WBC 13.5. Repeat lactic acid 1.4. Suspect lactic acidosis secondary to seizure as opposed to infection. Discharge on Levaquin 500mg PO daily X5 days. 2. Acute metabolic encephalopathy-secondary to #1. Brain CT negative for acute process. Mental status at baseline. 3. Breakthrough seizure, suspect secondary to fever as a result of #1-carbamazepine level low. Seizure precautions. Continue home Dilantin and carbamazepine regimen. No further seizure activity. 4. Acute hypoxic and hypercapnic respiratory failure-suspect secondary to lethargy on admission as a result of #1/#3. Initially requiring nonrebreather and high flow oxygen. Oxygen now stable on room air. Chest x-ray on admission without acute process. 5. BPH with chronic suprapubic catheter-continue Flomax regimen. Change catheter per protocol at [facility]. 6. MRDD- resides at [facility]. General: Alert, Cooperative, No apparent distress HEENT: Atraumatic, PERRLA, EOMI, Normocephalic Oral: Moist Mucosa Neck: Supple, No JVD, Negative Carotid Bruits Lungs: Clear to auscultation, Diminished Cardiovascular: Regular rate, Regular Rhythm, Normal S1, Normal S2, No murmurs Abdomen: Bowel Sounds Present, Soft, Non Tender, Non-Distended, Obese, Suprapubic catheter intact Extremities: No clubbing, No cyanosis, No edema, Capillary Refill Less than 3 Seconds Skin: No rashes, No breakdown Musculoskeletal: No Tenderness to Palpation of Joints or Extremities Neurological: Cranial nerves II-XII grossly intact Psych/Mental Status: Normal Affect Patient seen and examined prior to discharge. Physical assessment as noted above. Patient is stable for discharge with follow up recommendations as noted above. This patient was seen by TESSA Galindo under the supervision of Dr. Moore. - Physical Exam Vital Signs Temp Pulse Resp BP Pulse Ox 98.4 F 88 18 128/77 H 94 01/02/19 10:05 01/02/19 10:05 01/02/19 10:05 01/02/19 10:05 01/02/19 10:05 Oxygen Flow Rate (L/min) 2 Oxygen Delivery Method Room Air Weight: 246 lb 14.684 oz Body Mass Index (BMI) 35.4 Finger Stick Blood Glucose 178 Intake and Output for Last 24 Hours 12/31/18 01/01/19 01/02/19 23:59 23:59 23:59 Intake Total 763 / 763 3830 / 3830 980 / 980 Output Total 850 / 850 5 / 187 425 / 425 Balance -87 / -87 1954 555 / 555 Microbiology Past 72 Hours 12/31/18 13:00 Urine Culture - Final Urine, Catheterized Providencia rettgeri 12/31/18 11:55 Blood Culture - Preliminary Blood Culture (Wb) - Anticubital Right 12/31/18 12:30 Influenza Types A,B Direct FA (WILBER) - Final Mucosa - Nasopharyngeal Laboratory Tests Past 24 Hrs 12/31/18 01/02/19 01/02/19 11:53 02:55 02:55 WBC 6.2 RBC 4.38 L Hgb 14.4 Hct 42.2 MCV 96.3 H MCH 32.9 H MCHC 34.1 RDW 13.8 RDW Differential 48.9 H Plt Count 139 L MPV 10.2 Diff Path Review Reviewed Sodium Potassium Chloride Carbon Dioxide Anion Gap BUN Creatinine Estim Creat Clear Calc Est GFR (MDRD) Af Amer Est GFR (MDRD) Non-Af BUN/Creatinine Ratio Glucose Calcium Vancomycin Trough 6.8 01/02/19 02:55 WBC RBC Hgb Hct MCV MCH MCHC RDW RDW Differential Plt Count MPV Diff Path Review Sodium 139 Potassium 4.3 Chloride 108 H Carbon Dioxide 24.0 Anion Gap 7 BUN 10 Creatinine 0.71 Estim Creat Clear Calc 69.96 Est GFR (MDRD) Af Amer 141 Est GFR (MDRD) Non-Af 116 BUN/Creatinine Ratio 14.1 Glucose 127 H Calcium 6.8 L Vancomycin Trough Home Medications: Medications to take at Discharge Amino Acids/Protein Hydrolys [Pro-Stat Awc Liquid] 30 ml PO DAILY 03/31/18 Phenytoin Na [Dilantin] 200 mg PO BID 03/31/18 Polyethylene Glycol 3350 [Miralax] 17 gm PO QHS 03/31/18 Sertraline HCl [Zoloft] 50 mg PO DAILY 03/31/18 Tamsulosin HCl [Flomax] 0.4 mg PO DAILY 03/31/18 Aspirin E.C. [Ecotrin] 81 mg PO DAILY@0800 12/31/18 Bisacodyl [Dulcolax] 10 mg RECTAL QODAY 12/31/18 Carbamazepine [Carbamazepine ER] 400 mg PO QHS 12/31/18 Loratadine 10 mg PO DAILY 12/31/18 Multivitamin with Minerals [Multiple Vitamin] 1 tab PO DAILY 12/31/18 Sennosides/Docusate Sodium [Senna Plus Tablet] 2 tab PO QHS 12/31/18 Levofloxacin [Levaquin] 500 mg PO DAILY #7 tablet 01/02/19 Following Prescrptions Were Given to Patient: Levofloxacin [Levaquin] 500 mg PO DAILY #7 tablet Primary Care Physician: Glenn Ramos MD [Primary Care Provider] - Please follow up with your Primary Care Physician in: 1 Week Disposition: Shelter facility Minutes spent on discharge:: 35 Patient Condition:: Stable Medical Necessity - Tobacco Use Smoking Status: Never smoker Meaningful Use Info Meaningful Use Diagnoses (Choose all that apply): None applicable <Paintsil,Caroleen - Last Filed: 01/02/19 14:50> Discharge Date and Diagnosis - Primary Discharge Diagnosis Active and Suspected Problems Sepsis (Acute) Bacteremia due to Gram-negative bacteria (Acute) Suspected gram negative UTI (urinary tract infection) (Acute) - Secondary Discharge Diagnosis Chronic Problems Epilepsy (Chronic) Elevated PSA (Chronic) Macrocytic anemia (Chronic) Chronic indwelling Champagne catheter (Chronic) Colonization status (Chronic) BPH with urinary obstruction (Chronic) Mental retardation (Chronic) Peripheral vascular disease (Chronic) Major depression (Chronic) Hospital Course and Treatment Summary of Care Provided: 73 y/o with PMHx of seizure disorder, MRDD admitted with breakthrough seizure and fever. He is a [facility] in a [facility], has a chronic indwelling suprapubic catheter. Patient was admitted and managed as severe sepsis secondary to UTI related to chronic suprapubic catheter. He was found to have acute hypoxic hypercapnic respiratory failure, managed for a short time on nonrebreather and high flow oxygen, later transitioned to nasal cannula oxygen. He was off oxygen at time of discharge and saturating well. Urine cultures grew [place]. Blood cultures 1 out of 2 was reportedly gram variable nerissa bacteremia. Discussed with microbiology, appears to be a diphtheroid. Likely a contaminant. Patient was managed initially on IV Rocephin and vancomycin. He was discharged on Levaquin for 5 more days. Subjective: On the day of discharge, there were no acute events overnight. Patient denies any fever or chills. Objective: Physical Exam General: Alert, Cooperative, No apparent distress, obese HEENT: Atraumatic, PERRLA, EOMI, Normocephalic Oral: Dry Mucosa Neck: Supple, No JVD, Negative Carotid Bruits Lungs: Clear to auscultation, Diminished Cardiovascular: Regular rate, Regular Rhythm, Normal S1, Normal S2, No murmurs Abdomen: Bowel Sounds Present, Soft, Non Tender, Non-Distended, Obese, - - Suprapubic catheter intact Extremities: No clubbing, No cyanosis, No edema, Capillary Refill Less than 3 Seconds Skin: No rashes, No breakdown Musculoskeletal: No Tenderness to Palpation of Joints or Extremities Neurological: Cranial nerves II-XII grossly intact Psych/Mental Status: Normal Affect - Physical Exam Vital Signs Temp Pulse Resp BP Pulse Ox 98.4 F 89 18 128/77 H 94 01/02/19 10:05 01/02/19 11:05 01/02/19 10:05 01/02/19 10:05 01/02/19 10:05 Oxygen Flow Rate (L/min) 2 Oxygen Delivery Method Room Air Weight: 112 kg Body Mass Index (BMI) 35.4 Finger Stick Blood Glucose 178 Intake and Output for Last 24 Hours 12/31/18 01/01/19 01/02/19 23:59 23:59 23:59 Intake Total 763 / 763 3830 / 3830 1761 / 1761 Output Total 850 / 850 1875 / 1875 675 / 675 Balance -87 / -87 1954 / 1954 1086 / 1086 Microbiology Past 72 Hours 12/31/18 11:53 Blood Culture - Preliminary Blood Culture (Wb) - Right Hand No growth in 48 hours. 12/31/18 13:00 Urine Culture - Final Urine, Catheterized Providencia rettgeri 12/31/18 11:55 Blood Culture - Preliminary Blood Culture (Wb) - Anticubital Right 12/31/18 12:30 Influenza Types A,B Direct FA (WILBER) - Final Mucosa - Nasopharyngeal Laboratory Tests Past 24 Hrs 01/02/19 01/02/19 01/02/19 02:55 02:55 02:55 WBC 6.2 RBC 4.38 L Hgb 14.4 Hct 42.2 MCV 96.3 H MCH 32.9 H MCHC 34.1 RDW 13.8 RDW Differential 48.9 H Plt Count 139 L MPV 10.2 Sodium 139 Potassium 4.3 Chloride 108 H Carbon Dioxide 24.0 Anion Gap 7 BUN 10 Creatinine 0.71 Estim Creat Clear Calc 69.96 Est GFR (MDRD) Af Amer 141 Est GFR (MDRD) Non-Af 116 BUN/Creatinine Ratio 14.1 Glucose 127 H Calcium 6.8 L Vancomycin Trough 6.8 Code Visit Inpatient E&M: 82946 Disch Hosp
--- NOTE | 2019-01-02 10:49 | DS.PCM_ITS ---
<Rita Uribe - Last Filed: 01/02/19 12:40> Discharge Date and Diagnosis Date of Admission: 12/31/18 Date of Discharge: 01/02/19 - Primary Discharge Diagnosis 1. Severe sepsis secondary to providencia rettgeri UTI and gram variable nerissa bacteremia as a result of chronic suprapubic catheter 2. Acute metabolic encephalopathy-secondary to #1. 3. Breakthrough seizure, suspect secondary to fever as a result of #1 4. Acute hypoxic and hypercapnic respiratory failure 5. BPH with chronic suprapubic catheter 6. MRDD - Secondary Discharge Diagnosis Chronic Problems Epilepsy (Chronic) Elevated PSA (Chronic) Macrocytic anemia (Chronic) Chronic indwelling Champagne catheter (Chronic) Colonization status (Chronic) BPH with urinary obstruction (Chronic) Mental retardation (Chronic) Peripheral vascular disease (Chronic) Major depression (Chronic) Hospital Course and Treatment Imaging Results: Diagnostic Data Chest X-Ray 12/31/18 12:25 IMPRESSION: Degenerative changes, as described above. No demonstrated acute cardiopulmonary process. Electronically Signed: Jose Eduardo Grullon, at 13:27 EDT Tel , Service support , Brain CT 12/31/18 14:21 IMPRESSION: Chronic involutional changes of the brain. There is disproportionate enlargement of the lateral and third ventricles, as compared to the extra-axial spaces. The findings suggest normal pressure hydrocephalus (NPH). There has been significant change since 02/02/2018. Electronically Signed: Jose Eduardo Grullon, at 15:22 EDT Tel , Service support , Operations: None Procedures: None Summary of Care Provided: The patient is a 73 year old M admitted 12/31/2018 due to breakthrough seizure and fever. 1. Severe sepsis secondary to providencia rettgeri UTI and gram variable nerissa bacteremia as a result of chronic suprapubic catheter-urinalysis positive. Urine culture with providencia rettgeri. Blood culture preliminary shows gram variable rods. Patient received IV Rocephin and IV vancomycin during admission. Previous urine cultures positive for MRSA, Proteus. Influenza negative. Chest x-ray negative. Lactic acid 14.8 on admission, temp 103.1, heart rate 139, WBC 13.5. Repeat lactic acid 1.4. Suspect lactic acidosis secondary to seizure as opposed to infection. Discharge on Levaquin 500mg PO daily X5 days. 2. Acute metabolic encephalopathy-secondary to #1. Brain CT negative for acute process. Mental status at baseline. 3. Breakthrough seizure, suspect secondary to fever as a result of #1- carbamazepine level low. Seizure precautions. Continue home Dilantin and carbamazepine regimen. No further seizure activity. 4. Acute hypoxic and hypercapnic respiratory failure-suspect secondary to lethargy on admission as a result of #1/#3. Initially requiring nonrebreather and high flow oxygen. Oxygen now stable on room air. Chest x-ray on admission without acute process. 5. BPH with chronic suprapubic catheter-continue Flomax regimen. Change catheter per protocol at [facility]. 6. MRDD- resides at [facility]. General: Alert, Cooperative, No apparent distress HEENT: Atraumatic, PERRLA, EOMI, Normocephalic Oral: Moist Mucosa Neck: Supple, No JVD, Negative Carotid Bruits Lungs: Clear to auscultation, Diminished Cardiovascular: Regular rate, Regular Rhythm, Normal S1, Normal S2, No murmurs Abdomen: Bowel Sounds Present, Soft, Non Tender, Non-Distended, Obese, Suprapubic catheter intact Extremities: No clubbing, No cyanosis, No edema, Capillary Refill Less than 3 Seconds Skin: No rashes, No breakdown Musculoskeletal: No Tenderness to Palpation of Joints or Extremities Neurological: Cranial nerves II-XII grossly intact Psych/Mental Status: Normal Affect Patient seen and examined prior to discharge. Physical assessment as noted above. Patient is stable for discharge with follow up recommendations as noted above. This patient was seen by TESSA Galindo under the supervision of Dr. Moore. - Physical Exam Vital Signs Temp Pulse Resp BP Pulse Ox 98.4 F 88 18 128/77 H 94 01/02/19 10:05 01/02/19 10:05 01/02/19 10:05 01/02/19 10:05 01/02/19 10:05 Oxygen Flow Rate (L/min) 2 Oxygen Delivery Method Room Air Weight: 246 lb 14.684 oz Body Mass Index (BMI) 35.4 Finger Stick Blood Glucose 178 Intake and Output for Last 24 Hours 12/31/18 01/01/19 01/02/19 23:59 23:59 23:59 Intake Total 763 / 763 3830 / 3830 980 / 980 Output Total 850 / 850 5 / 187 425 / 425 Balance -87 / -87 1954 555 / 555 Microbiology Past 72 Hours 12/31/18 13:00 Urine Culture - Final Urine, Catheterized Providencia rettgeri 12/31/18 11:55 Blood Culture - Preliminary Blood Culture (Wb) - Anticubital Right 12/31/18 12:30 Influenza Types A,B Direct FA (WILBER) - Final Mucosa - Nasopharyngeal Laboratory Tests Past 24 Hrs 12/31/18 01/02/19 01/02/19 11:53 02:55 02:55 WBC 6.2 RBC 4.38 L Hgb 14.4 Hct 42.2 MCV 96.3 H MCH 32.9 H MCHC 34.1 RDW 13.8 RDW Differential 48.9 H Plt Count 139 L MPV 10.2 Diff Path Review Reviewed Sodium Potassium Chloride Carbon Dioxide Anion Gap BUN Creatinine Estim Creat Clear Calc Est GFR (MDRD) Af Amer Est GFR (MDRD) Non-Af BUN/Creatinine Ratio Glucose Calcium Vancomycin Trough 6.8 01/02/19 02:55 WBC RBC Hgb Hct MCV MCH MCHC RDW RDW Differential Plt Count MPV Diff Path Review Sodium 139 Potassium 4.3 Chloride 108 H Carbon Dioxide 24.0 Anion Gap 7 BUN 10 Creatinine 0.71 Estim Creat Clear Calc 69.96 Est GFR (MDRD) Af Amer 141 Est GFR (MDRD) Non-Af 116 BUN/Creatinine Ratio 14.1 Glucose 127 H Calcium 6.8 L Vancomycin Trough Home Medications: Medications to take at Discharge Amino Acids/Protein Hydrolys [Pro-Stat Awc Liquid] 30 ml PO DAILY 03/31/18 Phenytoin Na [Dilantin] 200 mg PO BID 03/31/18 Polyethylene Glycol 3350 [Miralax] 17 gm PO QHS 03/31/18 Sertraline HCl [Zoloft] 50 mg PO DAILY 03/31/18 Tamsulosin HCl [Flomax] 0.4 mg PO DAILY 03/31/18 Aspirin E.C. [Ecotrin] 81 mg PO DAILY@0800 12/31/18 Bisacodyl [Dulcolax] 10 mg RECTAL QODAY 12/31/18 Carbamazepine [Carbamazepine ER] 400 mg PO QHS 12/31/18 Loratadine 10 mg PO DAILY 12/31/18 Multivitamin with Minerals [Multiple Vitamin] 1 tab PO DAILY 12/31/18 Sennosides/Docusate Sodium [Senna Plus Tablet] 2 tab PO QHS 12/31/18 Levofloxacin [Levaquin] 500 mg PO DAILY #7 tablet 01/02/19 Following Prescrptions Were Given to Patient: Levofloxacin [Levaquin] 500 mg PO DAILY #7 tablet Primary Care Physician: Glenn Ramos MD [Primary Care Provider] - Please follow up with your Primary Care Physician in: 1 Week Disposition: Correction facility Minutes spent on discharge:: 35 Patient Condition:: Stable Medical Necessity - Tobacco Use Smoking Status: Never smoker Meaningful Use Info Meaningful Use Diagnoses (Choose all that apply): None applicable <Paintsil,[place] - Last Filed: 01/02/19 14:50> Discharge Date and Diagnosis - Primary Discharge Diagnosis Active and Suspected Problems Sepsis (Acute) Bacteremia due to Gram-negative bacteria (Acute) Suspected gram negative UTI (urinary tract infection) (Acute) - Secondary Discharge Diagnosis Chronic Problems Epilepsy (Chronic) Elevated PSA (Chronic) Macrocytic anemia (Chronic) Chronic indwelling Champagne catheter (Chronic) Colonization status (Chronic) BPH with urinary obstruction (Chronic) Mental retardation (Chronic) Peripheral vascular disease (Chronic) Major depression (Chronic) Hospital Course and Treatment Summary of Care Provided: 73 y/o with PMHx of seizure disorder, MRDD admitted with breakthrough seizure and fever. [facility] a [facility] in [facility], has a chronic indwelling suprapubic catheter. Patient was admitted and managed as severe sepsis secondary to UTI related to chronic suprapubic catheter. He was found to have acute hypoxic hypercapnic respiratory failure, managed for a short time on nonrebreather and high flow oxygen, later transitioned to nasal cannula oxygen. He was off oxygen at time of discharge and saturating well. Urine cultures grew [place]. Blood cultures 1 out of 2 was reportedly gram variable nerissa bacteremia. Discussed with microbiology, appears to be a diphtheroid. Likely a contaminant. Patient was managed initially on IV Rocephin and vancomycin. He was discharged on Levaquin for 5 more days. Subjective: On the day of discharge, there were no acute events overnight. Patient denies any fever or chills. Objective: Physical Exam General: Alert, Cooperative, No apparent distress, obese HEENT: Atraumatic, PERRLA, EOMI, Normocephalic Oral: Dry Mucosa Neck: Supple, No JVD, Negative Carotid Bruits Lungs: Clear to auscultation, Diminished Cardiovascular: Regular rate, Regular Rhythm, Normal S1, Normal S2, No murmurs Abdomen: Bowel Sounds Present, Soft, Non Tender, Non-Distended, Obese, - - Suprapubic catheter intact Extremities: No clubbing, No cyanosis, No edema, Capillary Refill Less than 3 Seconds Skin: No rashes, No breakdown Musculoskeletal: No Tenderness to Palpation of Joints or Extremities Neurological: Cranial nerves II-XII grossly intact Psych/Mental Status: Normal Affect - Physical Exam Vital Signs Temp Pulse Resp BP Pulse Ox 98.4 F 89 18 128/77 H 94 01/02/19 10:05 01/02/19 11:05 01/02/19 10:05 01/02/19 10:05 01/02/19 10:05 Oxygen Flow Rate (L/min) 2 Oxygen Delivery Method Room Air Weight: 112 kg Body Mass Index (BMI) 35.4 Finger Stick Blood Glucose 178 Intake and Output for Last 24 Hours 12/31/18 01/01/19 01/02/19 23:59 23:59 23:59 Intake Total 763 / 763 3830 / 3830 1761 / 1761 Output Total 850 / 850 1875 / 1875 675 / 675 Balance -87 / -87 1954 / 1954 1086 / 1086 Microbiology Past 72 Hours 12/31/18 11:53 Blood Culture - Preliminary Blood Culture (Wb) - Right Hand No growth in 48 hours. 12/31/18 13:00 Urine Culture - Final Urine, Catheterized Providencia rettgeri 12/31/18 11:55 Blood Culture - Preliminary Blood Culture (Wb) - Anticubital Right 12/31/18 12:30 Influenza Types A,B Direct FA (WILBER) - Final Mucosa - Nasopharyngeal Laboratory Tests Past 24 Hrs 01/02/19 01/02/19 01/02/19 02:55 02:55 02:55 WBC 6.2 RBC 4.38 L Hgb 14.4 Hct 42.2 MCV 96.3 H MCH 32.9 H MCHC 34.1 RDW 13.8 RDW Differential 48.9 H Plt Count 139 L MPV 10.2 Sodium 139 Potassium 4.3 Chloride 108 H Carbon Dioxide 24.0 Anion Gap 7 BUN 10 Creatinine 0.71 Estim Creat Clear Calc 69.96 Est GFR (MDRD) Af Amer 141 Est GFR (MDRD) Non-Af 116 BUN/Creatinine Ratio 14.1 Glucose 127 H Calcium 6.8 L Vancomycin Trough 6.8 Code Visit Inpatient E&M: 82271 Disch Hosp
--- NOTE | 2019-01-02 10:54 | PCM.EXTCARCO ---
- Diet 12/31/18 17:09 Diet: Cardiac/Low Cholesterol Food consistency:: Regular Liquid Consistency:: Regular/Thin - Routine Orders/Code Status Enema Type: Fleetz Enema Frequency: Daily PRN Suppository Type: Dulcolax 10mg Suppository Frequency: Daily PRN O2 Liters per Minute: 2 O2 Frequency: PRN Keep PO Greater than or Equal to (%): 90 Code Status: DNRCC - Suggestions for Active Care Change Position every (hours): 2 Times a day to sit in chair: 3 - Therapies Physical Therapy: Eval and Treat Occupational Therapy: Eval and Treat - Problem/Diagnosis (1) Sepsis Status: Acute Current Visit: Yes (2) Thrombocytopenia Status: Resolved Current Visit: No (3) Bacteremia due to Gram-negative bacteria Status: Acute Comment: Suspected gram negative Current Visit: Yes (4) UTI (urinary tract infection) Status: Acute Current Visit: Yes (5) Epilepsy Status: Chronic Current Visit: No (6) Urethral trauma Status: Resolved Comment: kevin trauma from cath change in [facility]. Current Visit: No (7) Elevated PSA Status: Chronic Current Visit: No (8) Macrocytic anemia Status: Chronic Current Visit: No (9) Chronic indwelling Kevin catheter Status: Chronic Current Visit: No (10) Colonization status Status: Chronic Current Visit: No (11) BPH with urinary obstruction Status: Chronic Current Visit: No (12) Mental retardation Status: Chronic Current Visit: No (13) Peripheral vascular disease Status: Chronic Current Visit: No (14) Major depression Status: Chronic Current Visit: No - Allergies/Procedures Done in Hospital Allergies/Adverse Reactions: Allergies No Known Allergies Allergy (Verified 03/31/18 11:51) Procedures: None - Type of Care/Length of Stay Estimated LOS: More Than 30 Days Type of Care Needed: Skilled Rehab Potential: Fair Prognosis: Fair - Additional Orders/Day of Discharge Additional Orders: Discussed with POA during admission palliative care consult. Consult Dr. Jimenes if family is interested in discussing this more. H&P will serve as current which was dated: 12/31/18 Day of Discharge: 01/02/19 - Dietary and Speech Recommendations Dietitian Recommendations/Changes: Suggest 2000 calorie/cardiac if blood glucose remains elevated. Fluid restriction as needed due to edema. Consider Consult to FORGING MACHINE OPERATOR if pt demonstrates difficulty with chewing/swallowing. - Follow Up Care Primary Care Physician: Glenn Ramos MD [Primary Care Provider] - Please follow up with your Primary Care Physician in: 1 Week
--- NOTE | 2019-01-02 10:57 | TREXTCA.CO_ITS ---
- Diet 12/31/18 17:09 Diet: Cardiac/Low Cholesterol Food consistency:: Regular Liquid Consistency:: Regular/Thin - Routine Orders/Code Status Enema Type: Fleetz Enema Frequency: Daily PRN Suppository Type: Dulcolax 10mg Suppository Frequency: Daily PRN O2 Liters per Minute: 2 O2 Frequency: PRN Keep PO Greater than or Equal to (%): 90 Code Status: DNRCC - Suggestions for Active Care Change Position every (hours): 2 Times a day to sit in chair: 3 - Therapies Physical Therapy: Eval and Treat Occupational Therapy: Eval and Treat - Problem/Diagnosis (1) Sepsis Status: Acute Current Visit: Yes (2) Thrombocytopenia Status: Resolved Current Visit: No (3) Bacteremia due to Gram-negative bacteria Status: Acute Comment: Suspected gram negative Current Visit: Yes (4) UTI (urinary tract infection) Status: Acute Current Visit: Yes (5) Epilepsy Status: Chronic Current Visit: No (6) Urethral trauma Status: Resolved Comment: kevin trauma from cath change in skilled nursing. Current Visit: No (7) Elevated PSA Status: Chronic Current Visit: No (8) Macrocytic anemia Status: Chronic Current Visit: No (9) Chronic indwelling Kevin catheter Status: Chronic Current Visit: No (10) Colonization status Status: Chronic Current Visit: No (11) BPH with urinary obstruction Status: Chronic Current Visit: No (12) Mental retardation Status: Chronic Current Visit: No (13) Peripheral vascular disease Status: Chronic Current Visit: No (14) Major depression Status: Chronic Current Visit: No - Allergies/Procedures Done in Hospital Allergies/Adverse Reactions: Allergies No Known Allergies Allergy (Verified 03/31/18 11:51) Procedures: None - Type of Care/Length of Stay Estimated LOS: More Than 30 Days Type of Care Needed: Skilled Rehab Potential: Fair Prognosis: Fair - Additional Orders/Day of Discharge Additional Orders: Discussed with POA during admission palliative care consult. Consult Dr. Jimenes if family is interested in discussing this more. H&P will serve as current which was dated: 12/31/18 Day of Discharge: 01/02/19 - Dietary and Speech Recommendations Dietitian Recommendations/Changes: Suggest 2000 calorie/cardiac if blood glucose remains elevated. Fluid restriction as needed due to edema. Consider Consult to ENROLLMENT SERVICES VICE PRESIDENT if pt demonstrates difficulty with chewing/swallowing. - Follow Up Care Primary Care Physician: Glenn Ramos MD [Primary Care Provider] - Please follow up with your Primary Care Physician in: 1 Week
--- NOTE | 2019-01-02 13:33 | CASEMGMT ---
Patient is ready for discharge back to [facility]. JONN faxed orders to [facility]. Called [facility] and arranged for patient to get picked up at 330 via cot. JONN notified RN, patient, recharger, and hospital secretary. JONN called patient's brother and HCPEpifanio FERNANDEZ letting him know about discharge and pick up man time. He also asked about the Hospice/Palliative referral. JONN told him that the physician said they can follow up with him once patient is back at [facility]. He thanked JONN. JONN called Kay at [facility] and left her a voice mail letting her know about pick up man time and the Palliative/Hospice consult. Plan: d/c back to [facility] under intermediate level of care. He is a [facility] resident. [facility] transported him via cot at 330. Teri VAN
== END 2019-01-02 16:09 | disposition intermediate care facility (04) | DRG 871 ==
LOC: ED 14:03 → PCU 16:31
PROVIDERS: Nurse Practitioner Family; Admitting Provider Family Medicine; Emergency Provider Emergency Medicine; Family Provider Family Medicine; PCP Family Medicine; Referring Provider Family Medicine; Visit Provider Internal Medicine
DX: A41.59 Other Gram-negative sepsis (principal); J96.02 Acute respiratory failure with hypercapnia; J96.01 Acute respiratory failure with hypoxia; G93.41 Metabolic encephalopathy; T83.510A Infection and inflammatory reaction due to cystostomy catheter, initial encounter; N39.0 Urinary tract infection, site not specified; N13.8 Other obstructive and reflux uropathy; R65.20 Severe sepsis without septic shock; G40.909 Epilepsy, unspecified, not intractable, without status epilepticus; Z66 Do not resuscitate; F79 Unspecified intellectual disabilities; N40.1 Benign prostatic hyperplasia with lower urinary tract symptoms; F32.9 Major depressive disorder, single episode, unspecified; I73.9 Peripheral vascular disease, unspecified; R97.20 Elevated prostate specific antigen [PSA]
CPT/HCPCS: 36415; 36600; 70450; 71045; 80048; 80053; 80156; 80185; 80202; 81001; 82803; 83605; 84484; 85025; 85027; 85610; 85730; 87040; 87077; 87086; 87088; 87186; 87804; 93005; 97802; 99285; J7030; J7040; J7050; A4216; J0696; J2405

== ENCOUNTER → 2020-02-28 17:57 | Outpatient (CLI) | payer MEDICARE, MEDICAID, SELFPAY ==
[2018-12-31 11:42] VITALS: BMI 35.4
== END ==
PROVIDERS: PCP Family Medicine; Referring Provider Family Medicine; Visit Provider Family Medicine
DX: J98.8 Other specified respiratory disorders (principal)
CPT/HCPCS: 87635; U0004

== ENCOUNTER → 2021-03-17 05:00 | Outpatient (REF) | payer MEDICARE, MEDICAID, SELFPAY ==
[2018-12-31 11:42] VITALS: BMI 35.4
[2021-03-17 10:13] LABS: Carbamazepine (Tegretol) 6.1 ug/mL (4.0-12.0)
== END ==
LOC: OLS.SW500 05:00
PROVIDERS: PCP Family Medicine; Referring Provider Family Medicine; Visit Provider Family Medicine
DX: R56.9 Unspecified convulsions (principal)
CPT/HCPCS: 36415; 80156

== ENCOUNTER → 2021-04-05 05:00 | Outpatient (REF) | payer MEDICARE, MEDICAID, SELFPAY ==
[2018-12-31 11:42] VITALS: BMI 35.4
[2021-04-05 09:21] LABS: Phenytoin (Dilantin) Level 10.4 mL (10.0-20.0)
== END ==
LOC: OLS.SW500 05:00
PROVIDERS: PCP Family Medicine; Visit Provider Family Medicine
DX: G40.909 Epilepsy, unspecified, not intractable, without status epilepticus (principal)
CPT/HCPCS: 36415; 80185

== ENCOUNTER → 2021-04-20 04:00 | Outpatient (REF) | payer MEDICARE, MEDICAID, SELFPAY ==
[2018-12-31 11:42] VITALS: BMI 35.4
[2021-04-20 07:28] LABS: Phenytoin (Dilantin) Level 18.6 mL (10.0-20.0)
== END ==
LOC: OLS.SW500 04:00
PROVIDERS: PCP Family Medicine; Visit Provider Family Medicine
DX: G40.89 Other seizures (principal)
CPT/HCPCS: 36415; 80185

== ENCOUNTER → 2021-05-04 05:00 | Outpatient (REF) | payer MEDICARE, MEDICAID, SELFPAY ==
[2018-12-31 11:42] VITALS: BMI 35.4
[2021-05-04 07:59] LABS: Phenytoin (Dilantin) Level 17.6 mL (10.0-20.0)
== END ==
LOC: OLS.SW500 05:00
PROVIDERS: PCP Family Medicine; Visit Provider Family Medicine
DX: G40.801 Other epilepsy, not intractable, with status epilepticus (principal)
CPT/HCPCS: 36415; 80185

== ENCOUNTER → 2021-05-12 05:00 | Outpatient (REF) | payer MEDICARE, MEDICAID, SELFPAY ==
[2018-12-31 11:42] VITALS: BMI 35.4
[2021-05-12 07:15] LABS: Hematocrit 43.5 % (40-54); Hemoglobin 14.6 g/dL (13.0-16.5); Mean Corp Hgb Conc 33.6 g/dL (32-36); Mean Corpuscular Hgb 31.8 pg (27.0-32.0); Mean Corpuscular Volume 94.8 fL (80-94); Mean Platelet Vol. 10.1 fl (6.2-12.0); Platelet Count 269 K/mm3 (150-450); RBC Distribution Width CV 13.5 % (11.6-14.6); RBC Distribution Width SD 47.2 fl (35.1-43.9); Red Blood Count 4.59 M/mm3 (4.6-6.2); White Blood Count 7.2 K/mm3 (4.4-11.0)
[2021-05-12 07:39] LABS: Carbamazepine (Tegretol) 5.9 ug/mL (4.0-12.0)
[2021-05-12 07:45] LABS: ALB/GLOB Ratio 0.7 RATIO (0.9-2.4); AST(SGOT) 20 U/L (15-37); Alanine Aminotransfer ALT/SGPT 27 U/L (16-61); Albumin, Serum 3.2 g/dL (3.2-5.0); Alkaline Phosphatase 65 U/L (45-117); Anion Gap 5 (5-15); BUN 13 mg/dL (7-18); BUN/Creat Ratio 16.5 RATIO (10-20); Calcium,Total 8.8 mg/dL (8.5-10.1); Chloride 107 mmol/L (98-107); Creatinine, Serum 0.79 mg/dL (0.70-1.30); EST Glomerular Filtration Rate 102 mL/min (>60); Est Glom Filt Rate - Afr Amer 124 mL/min (>60); Globulin 4.6 g/dL (2.2-4.2); Glucose 97 mg/dL (74-106); Potassium 3.6 mmol/L (3.5-5.1); Protein, Total 7.8 g/dL (6.4-8.2); Sodium Level 140 mmol/L (136-145)
== END ==
LOC: OLS.SW500 05:00
PROVIDERS: PCP Family Medicine; Visit Provider Family Medicine
DX: R56.9 Unspecified convulsions (principal); I73.9 Peripheral vascular disease, unspecified
CPT/HCPCS: 36415; 80053; 80156; 85027

== ENCOUNTER → 2021-05-18 05:00 | Outpatient (REF) | payer MEDICARE, MEDICAID, SELFPAY ==
[2018-12-31 11:42] VITALS: BMI 35.4
[2021-05-18 08:18] LABS: Phenytoin (Dilantin) Level 21.9 mL (10.0-20.0)
== END ==
LOC: OLS.SW500 05:00
PROVIDERS: PCP Family Medicine; Referring Provider Family Medicine; Visit Provider Family Medicine
DX: G40.89 Other seizures (principal)
CPT/HCPCS: 36415; 80185

== ENCOUNTER → 2021-05-21 05:00 | Outpatient (REF) | payer MEDICARE, MEDICAID, SELFPAY ==
[2018-12-31 11:42] VITALS: BMI 35.4
[2021-05-21 08:22] LABS: Phenytoin (Dilantin) Level 17.4 mL (10.0-20.0)
== END ==
LOC: OLS.SW500 05:00
PROVIDERS: PCP Family Medicine; Referring Provider Family Medicine; Visit Provider Family Medicine
DX: G40.89 Other seizures (principal)
CPT/HCPCS: 36415; 80185

== ENCOUNTER → 2021-06-01 05:00 | Outpatient (REF) | payer MEDICARE, MEDICAID, SELFPAY ==
[2018-12-31 11:42] VITALS: BMI 35.4
[2021-06-01 08:59] LABS: Phenytoin (Dilantin) Level 16.4 mL (10.0-20.0)
== END ==
LOC: OLS.SW500 05:00
PROVIDERS: PCP Family Medicine; Referring Provider Family Medicine; Visit Provider Family Medicine
DX: G40.89 Other seizures (principal)
CPT/HCPCS: 36415; 80185

== ENCOUNTER → 2021-06-26 13:06 | Outpatient (REF) | payer MEDICARE, MEDICAID, SELFPAY ==
[2021-06-26 14:08] LABS: Absolute Lymphocyte Count 2.19 X10^3/uL (0.83-4.51); Absolute Neutrophil Count 5.2 X10^3/uL (2.0-7.7); Basophil# 0.03 X10^3/uL; Basophil% 0.3 % (0-1); Eosinophil# 0.04 X10^3/uL; Eosinophils% 0.4 % (0-5); Hematocrit 43.7 % (40-54); Hemoglobin 14.3 g/dL (13.0-16.5); Lymphocyte # 2.19 X10^3/ul (0.83-4.51); Lymphocyte % 21.1 % (19-41); Mean Corp Hgb Conc 32.7 g/dL (32-36); Mean Corpuscular Hgb 32.1 pg (27.0-32.0); Mean Platelet Vol. 10.8 fl (6.2-12.0); NRBC Flagged by Analyzer 0 % (0-5); Neutrophil # 5.16 X10^3/uL (2.7-7.7); Neutrophil % 49.7 % (47-70); POSITIVE DIFFERENTIAL YES; Platelet Count 275 K/mm3 (150-450); RBC Distribution Width SD 50.6 fl (35.1-43.9); Red Blood Count 4.46 M/mm3 (4.6-6.2); White Blood Count 10.4 K/mm3 (4.4-11.0)
[2021-06-26 14:15] LABS: Differential Indicated SCAN CRITERIA MET
[2021-06-26 14:21] LABS: Anion Gap 4 (5-15); BUN 15 mg/dL (7-18); BUN/Creat Ratio 18.1 RATIO (10-20); Chloride 109 mmol/L (98-107); Creatinine, Serum 0.83 mg/dL (0.70-1.30); EST Glomerular Filtration Rate 96 mL/min (>60); Est Glom Filt Rate - Afr Amer 117 mL/min (>60); Glucose 111 mg/dL (74-106); Potassium 3.8 mmol/L (3.5-5.1); Sodium Level 142 mmol/L (136-145)
[2021-06-26 14:54] LABS: Differential Comment SCANNED
== END ==
LOC: OLS.SW500 13:06
PROVIDERS: PCP Family Medicine; Visit Provider Family Medicine
DX: I73.9 Peripheral vascular disease, unspecified (principal); G40.909 Epilepsy, unspecified, not intractable, without status epilepticus
CPT/HCPCS: 36415; 80048; 85025

== ENCOUNTER → 2021-06-27 18:23 | Outpatient (REF) | payer MEDICARE, MEDICAID, SELFPAY ==
[2021-06-27 20:13] LABS: Absolute Lymphocyte Count 2.09 X10^3/uL (0.83-4.51); Absolute Neutrophil Count 14.4 X10^3/uL (2.0-7.7); Basophil# 0.06 X10^3/uL; Basophil% 0.3 % (0-1); Eosinophil# 0.02 X10^3/uL; Eosinophils% 0.1 % (0-5); Hematocrit 44.7 % (40-54); Lymphocyte # 2.09 X10^3/ul (0.83-4.51); Mean Corp Hgb Conc 33.6 g/dL (32-36); Mean Corpuscular Hgb 32.1 pg (27.0-32.0); Mean Corpuscular Volume 95.5 fL (80-94); Mean Platelet Vol. 10.9 fl (6.2-12.0); Monocyte# 4.17 X10^3/uL; Monocyte% 19.9 % (0-10); NRBC Flagged by Analyzer 0 % (0-5); Neutrophil # 14.39 X10^3/uL (2.7-7.7); Neutrophil % 68.8 % (47-70); POSITIVE DIFFERENTIAL YES; Platelet Count 262 K/mm3 (150-450); RBC Distribution Width SD 49.3 fl (35.1-43.9); Red Blood Count 4.68 M/mm3 (4.6-6.2); White Blood Count 20.9 K/mm3 (4.4-11.0)
[2021-06-27 20:20] LABS: Differential Indicated SCAN CRITERIA MET
[2021-06-27 20:36] LABS: Anion Gap 9 (5-15); BUN 21 mg/dL (7-18); BUN/Creat Ratio 19.3 RATIO (10-20); Calcium,Total 8.9 mg/dL (8.5-10.1); Chloride 107 mmol/L (98-107); Creatinine, Serum 1.09 mg/dL (0.70-1.30); EST Glomerular Filtration Rate 70 mL/min (>60); Est Glom Filt Rate - Afr Amer 85 mL/min (>60); Glucose 149 mg/dL (74-106); Potassium 3.8 mmol/L (3.5-5.1); Sodium Level 142 mmol/L (136-145)
[2021-06-27 20:46] LABS: Lactic Acid 1.3 mmol/L (0.4-1.9)
[2021-06-28 13:26] LABS: Pathologist Review Reviewed
== END ==
LOC: OLS.SW500 18:23
PROVIDERS: PCP Family Medicine; Visit Provider Family Medicine
DX: D72.829 Elevated white blood cell count, unspecified (principal); G40.909 Epilepsy, unspecified, not intractable, without status epilepticus; G93.41 Metabolic encephalopathy
CPT/HCPCS: 36415; 80048; 80156; 83605; 85025

== ENCOUNTER → 2021-06-28 04:50 | Outpatient (REF) | payer MEDICARE, MEDICAID, SELFPAY | LOC: OLS.SW500 04:50 | PROVIDERS: PCP Family Medicine; Visit Provider Family Medicine | DX: D72.829 Elevated white blood cell count, unspecified (principal); L08.9 Local infection of the skin and subcutaneous tissue, unspecified | CPT/HCPCS: 87070; 87077; 87186; 87205 ==

== ENCOUNTER 2021-06-28 17:57 | Emergency (ER) | payer MEDICARE, MEDICAID, SELFPAY ==
[2021-06-28 17:59] VITALS: BP 126/63; PULSE 104; RESP 18; TEMP 36.9; O2SAT 91; BMI 37.0
--- NOTE | 2021-06-28 18:43 | EDS_ITS ---
HPI History of Present Illness Chief Complaint: General Illness Informant: SNF Narrative Narrative: Patient sent from [facility] for evaluation of sacral wound. Patient bed ridden, does not communicate. From records history of metabolic encephalopathy seizure disorder. He is a DNR CC. Sacral wound has been managed as an outpatient however over the weekend patient was sent in for PICC line and started on vancomycin at the facility. Reported this was started by covering nurse over the weekend. Not the primary nurse. Reported concerns for needing more aggressive management of the ulcer. However he is DNR CC. Nursing discussion with facility confirmed and discussed with family over the phone, states he is currently on antibiotics there would be no other aggressive treatment, family would wish to continue antibiotics for treatment. [facility] Medical History Depression Seizures Home Medications amino acids-protein hydrolys [Pro-Stat AWC] 30 ml PO DAILY 03/31/18 [History Last Taken 12/31/18] phenytoin sodium extended 200 mg PO BID 03/31/18 [History Last Taken 12/31/18] polyethylene glycol 3350 17 g PO QHS 03/31/18 [History Last Taken 12/30/18] sertraline 50 mg PO DAILY 03/31/18 [History Last Taken 12/31/18] tamsulosin 0.4 mg PO DAILY 03/31/18 [History Last Taken 12/30/18] aspirin 81 mg PO DAILY@0800 12/31/18 [History Last Taken 12/31/18] bisacodyl 10 mg RECTAL QODAY 12/31/18 [History Last Taken 12/30/18] carbamazepine 400 mg PO QHS 12/31/18 [History Last Taken 12/30/18] loratadine 10 mg PO DAILY 12/31/18 [History Last Taken 12/31/18] multivitamin with minerals [Multiple Vitamin-Minerals] 1 tab PO DAILY 12/31/18 [History Last Taken 12/31/18] sennosides-docusate sodium [Senna Plus] 2 tab PO QHS 12/31/18 [History Last Taken 12/30/18] levofloxacin [Levaquin] 500 mg PO DAILY #7 tab 01/02/19 [Rx Last Taken Unknown] Allergy/AdvReac Type Severity Reaction Status Date / Time No Known Allergies Allergy Verified 06/28/21 18:02 Social History Smoking Status: Never smoker ROS ROS ED Review of Systems ROS Unobtainable: due to encephalopathy EXAM Physical Exam Const Vital Signs: 06/28/21 17:59 06/28/21 18:11 06/28/21 20:38 Temperature 98.4 F Temperature Source Temporal Pulse Rate 104 H 100 Respiratory Rate 18 16 Respiratory Effort Normal Non-Labored Respiratory Pattern Normal Blood Pressure 126/63 H 106/60 Blood Pressure Mean 84 Pulse Ox 91 100 Oxygen Delivery Method Room Air Constitutional Narrative: Nontoxic, unable to communicate or follow commands. HEENT Reports moist mucous membranes Resp normal respiratory effort Cardio regular rate and regular rhythm GI normal to inspection, nondistended, normoactive bowel sounds GI Narrative: Suprapubic Champagne catheter with yellow urine Back/Spine Back/Spine Narrative: Nursing assistance rolling patient on side noted stage II coccyx ulcer 4 cm there is erythema, there is no active drainage. There is packing in the ulcer. Extremity Extremity Narrative: Heel pads Skin Skin Narrative: See above MDM MDM MDM Narrative Medical decision making narrative: Patient vital signs stable. Discussed with family and updated treatment they would like to continue antibiotics. He does have a PICC line. I discussed with Dr. Glenn Ramos covering physician, states antibiotics can be continued at the facility. They have wound care nurses to manage sacral wounds there. His vitals are stable. He is a DNR CC. He is okay with patient being sent back to facility. Discharge Plan Triage Chief Complaint: General Illness ED Provider: Luis E Parekh Dx/Rx/DC Orders Clinical Impression: Sacral decubitus ulcer, DNR (do not resuscitate) Instructions: ED Pressure Injury Prescriptions: No Action polyethylene glycol 3350 17 GM Packet 17 g PO QHS RF: 0 phenytoin sodium extended 100 MG capsule 200 mg PO BID RF: 0 tamsulosin 0.4 MG capsule 0.4 mg PO DAILY RF: 0 sertraline 50 MG tablet 50 mg PO DAILY RF: 0 amino acids-protein hydrolys [Pro-Stat AWC] 887 ML Liquid 30 ml PO DAILY RF: 0 sennosides-docusate sodium [Senna Plus] 1 EACH tablet 2 tab PO QHS RF: 0 aspirin 81 MG tablet 81 mg PO DAILY@0800 RF: 0 bisacodyl 10 MG Suppos. 10 mg RECTAL QODAY RF: 0 multivitamin with minerals [Multiple Vitamin-Minerals] 1 EACH tablet 1 tab PO DAILY RF: 0 loratadine 10 MG tablet 10 mg PO DAILY RF: 0 carbamazepine 400 MG Tab.Er.12h 400 mg PO QHS RF: 0 levofloxacin [Levaquin] 500 MG tablet 500 mg PO DAILY Qty: 7 RF: 0 Primary Care Provider: Nate Olsen Referrals: Nate Olsen MD [Primary Care Provider] - 1 Day Activity Restrictions/Additional Instructions: Per Dr. Glenn Ramos, antibiotics can be continued at the facility. wound nurses are at the facility to help manage. Family would like to continue antibiotics. Disposition Disposition: Shelter Facility Discharge Location: [facility] Discharge Date/Time: 06/28/21 20:46
--- NOTE | 2021-06-28 18:52 | ED.RN ---
CALLED AND TALKED TO NURSE SOL AT [facility]. INFORMED PT IS COMING BACK AND NO CHANGES ARE ORDERED. DR SHEPHERD TALKED WITH DR MCKEON AND VERIFIED THE CONTINUED CARE.
--- NOTE | 2021-06-28 18:53 | ED.RN ---
this rn contacted Epifanio, brother of patient to get more information on pt's reason for visit. brother states that pt isn't himself d/t coccyx wound infection. this rn confirmed that pt is receiving iv antibiotics through picc line. rn informed care can be continued at [facility] after confirmation from dr. ofelia rodriguez. brother agreeable.
--- NOTE | 2021-06-28 19:11 | ED.RN ---
this rn updated brother on patient's return to [facility]. brother agreeable.
[2021-06-28 20:38] VITALS: BP 106/60; PULSE 100; RESP 16; O2SAT 100
== END 2021-06-28 20:46 | disposition skilled nursing facility (03) ==
PROVIDERS: Emergency Provider Emergency Medicine; PCP Family Medicine
DX: L89.152 Pressure ulcer of sacral region, stage 2 (principal); Z66 Do not resuscitate; F32.9 Major depressive disorder, single episode, unspecified; G40.909 Epilepsy, unspecified, not intractable, without status epilepticus; Z79.82 Long term (current) use of aspirin; Z74.01 Bed confinement status
CPT/HCPCS: 99284

== ENCOUNTER → 2021-06-29 05:00 | Outpatient (REF) | payer MEDICARE, MEDICAID, SELFPAY ==
[2021-06-29 07:57] LABS: Phenytoin (Dilantin) Level 13.1 mL (10.0-20.0)
== END ==
LOC: OLS.SW500 05:00
PROVIDERS: PCP Family Medicine; Visit Provider Family Medicine
DX: G40.89 Other seizures (principal); A04.72 Enterocolitis due to Clostridium difficile, not specified as recurrent
CPT/HCPCS: 36415; 80185

== ENCOUNTER → 2021-06-30 05:00 | Outpatient (REF) | payer MEDICARE, MEDICAID, SELFPAY ==
[2021-06-30 10:02] LABS: Absolute Neutrophil Count 7.7 X10^3/uL (2.0-7.7); Basophil# 0.02 X10^3/uL; Basophil% 0.2 % (0-1); Eosinophil# 0.03 X10^3/uL; Eosinophils% 0.3 % (0-5); Hematocrit 44.2 % (40-54); Hemoglobin 14.1 g/dL (13.0-16.5); Mean Corp Hgb Conc 31.9 g/dL (32-36); Mean Corpuscular Hgb 31.7 pg (27.0-32.0); Mean Corpuscular Volume 99.3 fL (80-94); Mean Platelet Vol. 11.5 fl (6.2-12.0); NRBC Flagged by Analyzer 0 % (0-5); Neutrophil # 7.68 X10^3/uL (2.7-7.7); Neutrophil % 76.7 % (47-70); Platelet Count 192 K/mm3 (150-450); RBC Distribution Width CV 14.2 % (11.6-14.6); RBC Distribution Width SD 52.4 fl (35.1-43.9); Red Blood Count 4.45 M/mm3 (4.6-6.2)
[2021-06-30 10:40] LABS: Anion Gap 6 (5-15); BUN 22 mg/dL (7-18); BUN/Creat Ratio 27.3 RATIO (10-20); Calcium,Total 9.3 mg/dL (8.5-10.1); Chloride 117 mmol/L (98-107); Creatinine, Serum 0.81 mg/dL (0.70-1.30); EST Glomerular Filtration Rate 100 mL/min (>60); Est Glom Filt Rate - Afr Amer 121 mL/min (>60); Glucose 118 mg/dL (74-106); Potassium 3.6 mmol/L (3.5-5.1); Sodium Level 150 mmol/L (136-145)
== END ==
LOC: OLS.SW500 05:00
PROVIDERS: PCP Family Medicine; Visit Provider Family Medicine
DX: R53.83 Other fatigue (principal)
CPT/HCPCS: 36415; 80048; 85025

== ENCOUNTER → 2021-07-02 05:00 | Outpatient (REF) | payer MEDICARE, MEDICAID, SELFPAY ==
[2021-07-02 08:15] LABS: Hemoglobin 13.2 g/dL (13.0-16.5); Mean Corp Hgb Conc 32.2 g/dL (32-36); Mean Corpuscular Hgb 31.7 pg (27.0-32.0); Mean Corpuscular Volume 98.3 fL (80-94); Mean Platelet Vol. 11.4 fl (6.2-12.0); Platelet Count 171 K/mm3 (150-450); RBC Distribution Width CV 14.3 % (11.6-14.6); RBC Distribution Width SD 51.7 fl (35.1-43.9); Red Blood Count 4.17 M/mm3 (4.6-6.2); White Blood Count 7.8 K/mm3 (4.4-11.0)
[2021-07-02 08:30] LABS: Anion Gap 4 (5-15); BUN 17 mg/dL (7-18); BUN/Creat Ratio 20.8 RATIO (10-20); Calcium,Total 8.6 mg/dL (8.5-10.1); Chloride 115 mmol/L (98-107); Creatinine, Serum 0.82 mg/dL (0.70-1.30); EST Glomerular Filtration Rate 98 mL/min (>60); Est Glom Filt Rate - Afr Amer 119 mL/min (>60); Glucose 112 mg/dL (74-106); Sodium Level 146 mmol/L (136-145)
== END ==
LOC: OLS.SW500 05:00
PROVIDERS: PCP Family Medicine; Visit Provider Family Medicine
DX: L08.9 Local infection of the skin and subcutaneous tissue, unspecified (principal)
CPT/HCPCS: 36415; 80048; 85027

== ENCOUNTER → 2021-07-05 03:30 | Outpatient (REF) | payer MEDICARE, MEDICAID, SELFPAY ==
[2021-07-05 04:04] LABS: Absolute Lymphocyte Count 1.86 X10^3/uL (0.83-4.51); Basophil# 0.01 X10^3/uL; Basophil% 0.2 % (0-1); Eosinophil# 0.09 X10^3/uL; Eosinophils% 1.5 % (0-5); Hematocrit 39.2 % (40-54); Hemoglobin 12.6 g/dL (13.0-16.5); Lymphocyte # 1.86 X10^3/ul (0.83-4.51); Lymphocyte % 31.8 % (19-41); Mean Corp Hgb Conc 32.1 g/dL (32-36); Mean Corpuscular Hgb 31.6 pg (27.0-32.0); Mean Corpuscular Volume 98.2 fL (80-94); Mean Platelet Vol. 10.6 fl (6.2-12.0); Monocyte# 0.85 X10^3/uL; Monocyte% 14.6 % (0-10); NRBC Flagged by Analyzer 0 % (0-5); Neutrophil # 2.98 X10^3/uL (2.7-7.7); Platelet Count 236 K/mm3 (150-450); RBC Distribution Width CV 13.8 % (11.6-14.6); RBC Distribution Width SD 50.1 fl (35.1-43.9); Red Blood Count 3.99 M/mm3 (4.6-6.2); White Blood Count 5.8 K/mm3 (4.4-11.0)
[2021-07-05 04:23] LABS: ALB/GLOB Ratio 0.4 RATIO (0.9-2.4); AST(SGOT) 240 U/L (15-37); Alanine Aminotransfer ALT/SGPT 220 U/L (16-61); Albumin, Serum 1.8 g/dL (3.2-5.0); Alkaline Phosphatase 51 U/L (45-117); Anion Gap 3 (5-15); BUN 15 mg/dL (7-18); BUN/Creat Ratio 21.2 RATIO (10-20); Calcium,Total 8.7 mg/dL (8.5-10.1); Chloride 116 mmol/L (98-107); Creatinine, Serum 0.71 mg/dL (0.70-1.30); EST Glomerular Filtration Rate 116 mL/min (>60); Est Glom Filt Rate - Afr Amer 140 mL/min (>60); Globulin 4.9 g/dL (2.2-4.2); Glucose 116 mg/dL (74-106); Potassium 3.8 mmol/L (3.5-5.1); Protein, Total 6.7 g/dL (6.4-8.2); Sodium Level 147 mmol/L (136-145)
== END ==
LOC: OLS.SW500 03:30
PROVIDERS: PCP Family Medicine; Visit Provider Family Medicine
DX: R53.83 Other fatigue (principal); R50.9 Fever, unspecified
CPT/HCPCS: 36415; 80053; 85025